=== PATIENT | female | born 1950 | race Caucasian/White ===

== ENCOUNTER 2017-01-12 09:56 | Observation (INO) ==
--- NOTE | 2017-01-12 10:12 | Emergency Department Note ---
Disposition Clinical Impression: COPD exacerbation, Influenza A Disposition: Admitted As Inpatient Condition: Good Referrals: NO,PCP [Primary Care Provider] - Forms: ED Satisfaction Letter Time of Disposition: 12:51 SOB HPI - General Chief Complaint: ED Shortness of Breath/Dyspnea Stated Complaint: shortness of breath, chest discomfort Time Seen by Provider: 01/12/17 10:02 Source: patient, EMS Mode of arrival: EMS Limitations: no limitations Nursing Notes Reviewed: Yes Vital Signs Reviewed: Yes - History of Present Illness 66-year-old white female who presents with difficulty breathing that started on Friday. She has a cough productive of small amount of sputum. She states she felt like she had a fever, it was not documented. No chills. This morning she developed some discomfort in her left chest which she describes as a tightness. No arm or neck pain. She denies rhinorrhea or sore throat. She denies leg edema. She is on home oxygen at 2 L. She has a history of COPD and atrial fibrillation. Pt Subjective Complaint: shortness of breath, cough, chest pain Onset (ago): day(s) Context: recent illness (3) Severity: moderate Consistency/Duration: constant Improves with: oxygen, rest Worsens with: exertion, coughing Known history of: COPD, other (Atrial fibrillation) Associated symptoms: Reports: chest pain (Left chest tightness), fever ( Subjective), cough, sputum production (Clear) Treatment prior to arrival: oxygen Cough present: Yes Cough Description: Involuntary Cough Frequency: Intermittent Sputum production: Yes Sputum Amount: Small Sputum Color: Clear - Related Data Home oxygen amount: 2 liters Home Medications Medication Instructions Recorded Confirmed Acetaminophen [Tylenol] 650 mg PO QID PRN 01/12/17 01/12/17 Amlodipine Besylate 10 mg PO DAILY 01/12/17 01/12/17 Dicyclomine [Bentyl] 10 mg PO QID PRN 01/12/17 01/12/17 Duloxetine HCl [Cymbalta] 60 mg PO DAILY 01/12/17 01/12/17 HydrALAZINE 50 mg PO TID 01/12/17 01/12/17 Methocarbamol [Robaxin-750] 750 mg PO TID 01/12/17 01/12/17 Naproxen Sodium [Aleve] 220 mg PO BID PRN 01/12/17 01/12/17 Pantoprazole Sodium [Protonix] 40 mg PO DAILY 01/12/17 01/12/17 Pravastatin Sodium [Pravachol] 40 mg PO HS 01/12/17 01/12/17 Pregabalin [Lyrica] 100 mg PO BID 01/12/17 01/12/17 Rivaroxaban [Xarelto] 15 mg PO DAILY 01/12/17 01/12/17 Previous Rx's Medication Instructions Recorded Aspirin 81 mg PO DAILY tab.chew 06/24/15 Carvedilol [Coreg] 25 mg PO BIDAC tablet 06/24/15 Furosemide [Lasix] 40 mg PO DAILY #30 tablet 06/24/15 Isosorbide DInitrate [Isordil] 30 mg PO BID tablet 06/24/15 Lisinopril [Zestril] 40 mg PO DAILY tablet 06/24/15 Nitroglycerin 0.4 mg SL Q5MIN PRN #15 tab.subl 06/24/15 Ranitidine HCl [Zantac] 150 mg PO BID #30 tablet 06/24/15 Saxagliptin HCl [Onglyza] 5 mg PO DAILY #30 tablet 06/24/15 Sertraline [Zoloft] 50 mg PO DAILY tablet 06/24/15 Allergies Allergy/AdvReac Type Severity Reaction Status Date / Time Penicillins [PCN] Allergy Severe See Verified 06/24/15 05:39 Comments diphenhydramine Allergy See Verified 06/24/15 05:39 Comments All systems ED: reviewed and negative except as stated. Constitutional: Reports: fever (Subjective). Denies: chills Eyes: Denies: eye discharge ENT ED: Denies: ear pain, throat pain, congestion Cardiovascular: Reports: chest pain (Left chest tightness) Respiratory: Reports: cough, dyspnea, wheezes, sputum production Gastrointestinal: Denies: abdominal pain, nausea, vomiting, diarrhea Genitourinary: Denies: urgency, dysuria, frequency Musculoskeletal: Reports: back pain (Left upper back pain) Integumentary: Denies: rash Neurological: Reports: weakness Past Medical History - Past Medical History Medical history: Reports: CVA, diabetes, myocardial infarction Surgical history: Reports: angioplasty/stent, cholecystectomy, herniorrhaphy, ureteral stent Psychiatric history: Reports: no psych history - Social History Smoking Status: Never smoker Smokeless Tobacco Status: No Alcohol use: Reports: none Drug use: Reports: none Physical Exam - General Limitations: no limitations General appearance: alert, in no apparent distress - Head Head exam: atraumatic, normocephalic - Eye Eye exam: Present: PERRL, EOMI. Absent: scleral icterus, conjunctival injection - ENT ENT exam: normal oropharynx, mucous membranes moist, TM's normal bilaterally - Neck Neck exam: Present: normal inspection, full ROM, trachea midline. Absent: lymphadenopathy - Chest Chest inspection: Present: symmetric chest wall rise - Respiratory Respiratory exam: Present: wheezes (Bilateral, mild, expiratory.), other ( Decreased breath sounds in the left base and midlung field posteriorly). Absent : respiratory distress, prolonged expiratory phase - Cardiovascular Cardiovascular exam: Present: regular rate, irregular rhythm. Absent: systolic murmur, diastolic murmur, gallop - Abdominal Exam Abdominal exam: Present: soft, Non-Tender, other (Obese) - Extremities Exam Extremities exam: Present: normal capillary refill. Absent: tenderness, pedal edema, calf tenderness - Neurological Exam Neurological exam: Present: alert, oriented X3. Absent: motor sensory deficit - Psychiatric Psychiatric exam: Present: normal affect, normal mood - Skin Skin exam: Present: warm, dry, intact. Absent: cyanosis, diaphoresis Course - Reevaluation(s) Reevaluation #1: Breathing is improved with treatment. Blood pressures have been in the high 80s to low 100 systolic. There is no evidence of congestive heart failure. I am going to give her a fluid bolus. Her lactic acid is normal. There is no evidence of sepsis. She is not tachycardic and her lactic acid is normal. No evidence of pneumonia on her x-ray. I think this patient has a COPD exacerbation with influenza A. I will talk with the hospitalist about admitting her for further treatment of her bronchospasm. Time: 12:17 Vital Signs Pulse Rate 96 01/12/17 10:02 Respiratory Rate 20 01/12/17 10:02 Blood Pressure 98/61 01/12/17 10:02 O2 Sat by Pulse Oximetry 94 L 01/12/17 10:02 Temperature 101 F H 01/12/17 10:03 Pulse Rate 89 01/12/17 11:32 Respiratory Rate 21 01/12/17 11:32 Blood Pressure 105/61 01/12/17 11:32 O2 Sat by Pulse Oximetry 95 01/12/17 11:32 Oxygen Delivery Oxygen Delivery Nasal Cannula Shortness of Breath/Dyspnea - MDM Narrative Medical decision making narrative: Differential includes but is not limited to influenza, pneumonia, pleural effusion, pneumothorax, congestive heart failure, cardiac ischemia/myocardial infarction. Clinically the patient has a COPD exacerbation with influenza A. There is no evidence of pneumonia. There is no evidence of congestive heart failure. She has been treated with nebulizers and steroids. She will be dosed with Tamiflu in the emergency department. She will require hospitalization, observation admission. The patient is agreeable with this treatment plan. She did get a fluid bolus for a blood pressure of 86 in the emergency department. Her lactic acid is normal, she is not tachycardic, I do not think she is septic. I am going to hold some of her antihypertensive medications as an inpatient. - Lab Data Lab results reviewed: Yes I reviewed the patient's lab results. Result diagrams: 01/12/17 10:25 01/12/17 10:25 Lab Results 01/12/17 01/12/17 01/12/17 Range/Units 10:25 10:25 10:25 WBC 7.1 (4.3-11.1) K/mcL RBC 4.00 (3.82-4.97) M/mcL Hgb 11.8 (11.5-15.4) g/dL Hct 35.5 (35.3-44.9) % MCV 88.8 (83.0-100.0) fL MCH 29.5 (28.0-33.3) pg MCHC 33.2 (31.6-35.5) g/dL RDW 13.6 (11.5-14.5) % Plt Count 171 (140-400) K/mcL MPV 12.0 (9.4-12.4) fL Immature Gran % 0.4 (0-4) % Seg Neutrophils % 81.3 % Lymphocytes % 5.8 % Monocytes % 10.6 % Eosinophils % 1.6 % Basophils % 0.3 % Neutrophils # 5.8 (1.6-8.9) K/mcL Lymphocytes # 0.4 L (0.6-4.6) K/mcL Monocytes # 0.8 (0.0-1.3) K/mcL Eosinophils # 0.1 (0.0-0.6) K/mcL Basophils # 0.0 (0.0-0.2) K/mcL PT 23.1 H (9.4-12.1) Seconds INR 2.1 VBG Lactic Acid (0.5-2.2) mmol/L Sodium 141 (136-145) mEq/L Potassium 3.5 (3.5-4.5) mEq/L Chloride 102 (98-109) mEq/L Carbon Dioxide 26 (19-29) mEq/L BUN 12 (7-20) mg/dL Creatinine 1.17 H (0.57-1.11) mg/dL Est GFR ( Amer) 56 L (> 60) Est GFR (Non-Af Amer) 46 L (> 60) BUN/Creatinine Ratio 10 (6-26) Glucose 120 H (70-99) mg/dL Calculated Osmolality 293 (280-300) Calcium 8.7 (8.6-10.8) mg/dL Total Bilirubin 0.6 (0.2-1.2) mg/dL AST 19 (5-34) Units/L ALT 11 (0-55) Units/L Alkaline Phosphatase 97 (38-126) Units/L Troponin I (0-0.03) ng/mL B-Natriuretic Peptide (0-100) pg/mL Serum Total Protein 7.1 (6.0-8.3) g/dL Albumin 3.1 L (3.5-5.0) g/dL Globulin 4.0 H (2.4-3.5) g/dL Albumin/Globulin Ratio 0.8 L (1.1-2.2) 01/12/17 01/12/17 01/12/17 Range/Units 10:25 10:25 10:25 WBC (4.3-11.1) K/mcL RBC (3.82-4.97) M/mcL Hgb (11.5-15.4) g/dL Hct (35.3-44.9) % MCV (83.0-100.0) fL MCH (28.0-33.3) pg MCHC (31.6-35.5) g/dL RDW (11.5-14.5) % Plt Count (140-400) K/mcL MPV (9.4-12.4) fL Immature Gran % (0-4) % Seg Neutrophils % % Lymphocytes % % Monocytes % % Eosinophils % % Basophils % % Neutrophils # (1.6-8.9) K/mcL Lymphocytes # (0.6-4.6) K/mcL Monocytes # (0.0-1.3) K/mcL Eosinophils # (0.0-0.6) K/mcL Basophils # (0.0-0.2) K/mcL PT (9.4-12.1) Seconds INR VBG Lactic Acid 1.0 (0.5-2.2) mmol/L Sodium (136-145) mEq/L Potassium (3.5-4.5) mEq/L Chloride (98-109) mEq/L Carbon Dioxide (19-29) mEq/L BUN (7-20) mg/dL Creatinine (0.57-1.11) mg/dL Est GFR ( Amer) (> 60) Est GFR (Non-Af Amer) (> 60) BUN/Creatinine Ratio (6-26) Glucose (70-99) mg/dL Calculated Osmolality (280-300) Calcium (8.6-10.8) mg/dL Total Bilirubin (0.2-1.2) mg/dL AST (5-34) Units/L ALT (0-55) Units/L Alkaline Phosphatase (38-126) Units/L Troponin I 0.01 (0-0.03) ng/mL B-Natriuretic Peptide 187 H (0-100) pg/mL Serum Total Protein (6.0-8.3) g/dL Albumin (3.5-5.0) g/dL Globulin (2.4-3.5) g/dL Albumin/Globulin Ratio (1.1-2.2) - Radiology Data Radiology results reviewed: Yes I reviewed the patient's radiology results. ITS Impressions Chest X-Ray 01/12/17 10:10 IMPRESSION: Interstitial changes may be chronic. Correlate clinical evidence of vascular congestion. D/ / 01/12/2017 11:43:13 Samson Donovan MD / madhu Interpreting Provider: Samson Donovan MD - EKG Data EKG attestation: Yes I reviewed and interpreted this EKG. EKG results narrative: Atrial fibrillation, rate of 99, poor R-wave progression, age undetermined anterior infarct, nonspecific ST-T wave changes. Rhythm strip shows atrial fibrillation with a rate of 99, QRS 106 ms with no other ectopy as interpreted by me. I can find no old EKGs in the system for comparison, although she had a nuclear stress test on 04/23/16 which reports a history of atrial fibrillation, and reports that she was in atrial fibrillation during the stress test.
[2017-01-12] MEDS ORDERED: Albuterol 2.5 MG/3 ML NEBULIZER IH ONE (10:13)
[2017-01-12] MEDS ORDERED: Ipratropium/Albuterol Neb 3 ML ONE (10:34)
[2017-01-12] MEDS: Ipratropium/Albuterol Neb 3 ML IH ONE ×3 (10:36→16:53)
[2017-01-12 10:59] LABS: Basophils % 0.3 %; Eosinophils # 0.1 K/mcL (0.0-0.6); Eosinophils % 1.6 %; Hematocrit 35.5 % (35.3-44.9); Hemoglobin 11.8 g/dL (11.5-15.4); Immature Granulocytes % 0.4 % (0-4); Lymphocytes # 0.4 K/mcL (0.6-4.6); Lymphocytes % 5.8 %; Mean Corpuscular HGB Conc 33.2 g/dL (31.6-35.5); Mean Corpuscular Hemoglobin 29.5 pg (28.0-33.3); Mean Corpuscular Volume 88.8 fL (83.0-100.0); Monocytes # 0.8 K/mcL (0.0-1.3); Monocytes % 10.6 %; Neutrophils # 5.8 K/mcL (1.6-8.9); Platelet Count 171 K/mcL (140-400); Red Cell Distribution Width 13.6 % (11.5-14.5); Segmented Neutrophils % 81.3 %
[2017-01-12 11:01] LABS: INR 2.1; Prothrombin Time 23.1 Seconds (9.4-12.1)
[2017-01-12 11:13] LABS: Albumin 3.1 g/dL (3.5-5.0); Albumin/Globulin Ratio 0.8 (1.1-2.2); Bilirubin,Total 0.6 mg/dL (0.2-1.2); Calcium 8.7 mg/dL (8.6-10.8); Potassium 3.5 mEq/L (3.5-4.5); Total Protein 7.1 g/dL (6.0-8.3)
[2017-01-12] MEDS ORDERED: 0.9 % Sodium Chloride 500 ML IVC ONE (12:16)
[2017-01-12] MEDS ORDERED: Ipratropium/Albuterol Neb 3 ML IH ONE ×2 (12:59→13:14)
[2017-01-12] MEDS ORDERED: Nitroglycerin 0.4 MG TAB.SUBL SL PRN (13:14)
[2017-01-12] MEDS ORDERED: Acetaminophen 325 MG TABLET PO PRN (13:14)
[2017-01-12] MEDS ORDERED: Naloxone 0.4 MG/ML INJ IVP PRN (13:14)
[2017-01-12] MEDS: Methocarbamol 500 MG TABLET PO SCH ×2 (18:13→22:23)
[2017-01-12] MEDS: MethylPREDNISolone 40 MG/ML VIAL IVP SCH ×2 (18:14→22:23)
[2017-01-12] MEDS: Famotidine 20 MG TABLET PO SCH (22:23)
[2017-01-12] MEDS: Pregabalin 50 MG CAPSULE PO SCH (22:23)
[2017-01-12] MEDS ORDERED: Ondansetron 4 MG/2 ML VIAL IVP PRN (23:04)
[2017-01-13] MEDS ORDERED: *HR* Rivaroxaban 15 MG TABLET PO SCH ×2 (09:00→18:00)
[2017-01-13] MEDS ORDERED: Furosemide 40 MG TABLET PO SCH (09:00)
[2017-01-13] MEDS ORDERED: Lisinopril 20 MG TABLET PO SCH (09:00)
[2017-01-13] MEDS: MethylPREDNISolone 40 MG/ML VIAL IVP SCH (10:21)
[2017-01-13] MEDS: Famotidine 20 MG TABLET PO SCH ×2 (10:22→20:59)
[2017-01-13] MEDS: Aspirin 81 MG TAB.CHEW PO SCH (10:22)
[2017-01-13] MEDS: Pregabalin 50 MG CAPSULE PO SCH ×2 (10:22→20:59)
[2017-01-13] MEDS: Methocarbamol 500 MG TABLET PO SCH ×3 (10:23→20:58)
[2017-01-13] MEDS: (Saxagliptin Hcl [Onglyza] 5 MG) PO SCH (10:24)
--- NOTE | 2017-01-13 12:14 | Internal Med History&Physical ---
Date of Encounter: 01/13/17 Time of Encounter: 11:35 Assessment and Plan (1) Influenza A Current visit: Yes Status: Acute Continue Tamiflu started in the emergency room. (2) Chronic atrial fibrillation Current visit: No Status: Chronic Continue Xarelto (3) Hypertension Current visit: No Status: Chronic Will discontinue lisinopril because of borderline hypotension and azotemia. Continue hydralazine and carvedilol. Qualifiers: Hypertension type: essential hypertension Qualified Code(s): I10 - Essential (primary) hypertension Internal Medicine - H&P: HPI Chief complaint: Dyspnea Admitted From: Home Plans for Post Hospital Care: Home History of present illness: Ms. Hernandez is a 66 year old female who came to the emergency room stating she had onset of dyspnea January 10. She had minimally productive cough. She denies significant myalgias or arthralgias. She had several episodes of diarrhea but no vomiting. When she did not improve she came to emergency was evaluated and found to have influenza A. She was admitted to [facility] floor for ongoing care needs. She states she received a flu vaccine fall 2015. Her respiratory history is significant for being a lifelong nonsmoker. She has history of asthma and uses an MDI at home. Past Med Surg Social Fam HX - Past Medical History Medical history: CVA, diabetes, myocardial infarction Psychiatric history: no psych history - Past Surgical History Surgical History: angioplasty/stent, cholecystectomy, herniorrhaphy, ureteral stent - Social History Smoking Status: Never smoker Smokeless Tobacco Status: No Alcohol use: none Drug use: none Internal Medicine - H&P: Meds Aspirin 81 mg PO DAILY tab.chew 06/24/15 [Rx] Carvedilol [Coreg] 25 mg PO BIDAC tablet 06/24/15 [Rx] Furosemide [Lasix] 40 mg PO DAILY #30 tablet 06/24/15 [Rx] Isosorbide DInitrate [Isordil] 30 mg PO BID tablet 06/24/15 [Rx] Lisinopril [Zestril] 40 mg PO DAILY tablet 06/24/15 [Rx] Nitroglycerin 0.4 mg SL Q5MIN PRN #15 tab.subl 06/24/15 [Rx] Ranitidine HCl [Zantac] 150 mg PO BID #30 tablet 06/24/15 [Rx] Saxagliptin HCl [Onglyza] 5 mg PO DAILY #30 tablet 06/24/15 [Rx] Sertraline [Zoloft] 50 mg PO DAILY tablet 06/24/15 [Rx] Acetaminophen [Tylenol] 650 mg PO QID PRN 01/12/17 [History] Amlodipine Besylate 10 mg PO DAILY 01/12/17 [History] Dicyclomine [Bentyl] 10 mg PO QID PRN 01/12/17 [History] Duloxetine HCl [Cymbalta] 60 mg PO DAILY 01/12/17 [History] HydrALAZINE 50 mg PO TID 01/12/17 [History] Methocarbamol [Robaxin-750] 750 mg PO TID 01/12/17 [History] Naproxen Sodium [Aleve] 220 mg PO BID PRN 01/12/17 [History] Pantoprazole Sodium [Protonix] 40 mg PO DAILY 01/12/17 [History] Pravastatin Sodium [Pravachol] 40 mg PO HS 01/12/17 [History] Pregabalin [Lyrica] 100 mg PO BID 01/12/17 [History] Rivaroxaban [Xarelto] 15 mg PO DAILY 01/12/17 [History] Allergies Penicillins [PCN] Allergy (Severe, Verified 06/24/15 05:39) See Comments reaction documented in 566 diphenhydramine Allergy (Verified 06/24/15 05:39) See Comments reaction documented in 566 All Systems PM: A 10-system review of systems was performed and is negative for pertinent findings except as documented above in the HPI. Review of systems: Gen.: States her weight has decreased by 20 pounds in the past year, intentionally Cardiovascular: She has history of hypertension. She has chronic atrial fibrillation. She claims a history of heart failure but an echocardiogram done 06/24/2015 showed LVEF of 60-65%. There was indeterminate diastolic function due to atrial fibrillation. No significant valvular abnormalities were seen. She had LAE at 4.2 cm. She had a Regadenoson stress test 04/23/2016 which showed no EKG or perfusion changes to indicate ischemia or infarct. She denies DVT or pulmonary embolus Respiratory: As per history of present illness GI: She has had cholecystectomy. She has GERD and IBS. She claims a colonoscopy done 2 weeks ago was unremarkable. She denies disorders of her liver or exocrine pancreas : She has chronic kidney disease but has not yet seen a intern retail. She denies other kidney or bladder disorders Neurologic: She claims she has had 5 strokes with the most recent one in 2009. Sequelae include a swallowing deficit and left hemiparesthesias. She uses a walker for ambulation. She denies seizures. Endocrine: She was diagnosed with DM 2 approximately 2 years ago. Her most recent hemoglobin A1c was 6.0% on 11/22/2016. She is on a statin but denies a diagnosis of hyperlipidemia. She denies thyroid disease. Hematology/oncology: She denies blood disorders cancers or anemia Psychiatric: She is a diagnosis of depression but denies anxiety or other mental health issues Musk skeletal: She has DJD but denies gout or other bone joint or muscle disorders. - Constitutional Vitals: Temp Pulse Resp BP Pulse Ox 97.7 F 77 18 120/71 97 01/13/17 07:13 01/13/17 07:13 01/13/17 07:13 01/13/17 07:13 01/13/17 07:13 Exam: Gen.: She is a well-developed well-nourished female who appears in minimal distress at present time. HEENT: Head is atraumatic and normocephalic. Eyes: EOMI. There is no scleral icterus. Mouth: Mucosa is moist. Neck: She has many skin tags on her neck and upper torso. Her neck is supple and nontender. There is no thyromegaly or adenopathy noted. Heart: Irregularly irregular with rate approximately 90/m. Lungs: No wheezes or crackles are heard. Abdomen: Soft and nontender. No masses or guarding are noted. Extremities: There is no cyanosis edema clubbing noted. Dorsalis pedis and posterior tibial pulses are trace palpable bilaterally. Her feet are warm to touch. Neurologic: Mental status: She is talkative and seems to be a reliable historian overall. Cranial nerves: Smile is symmetric. Forehead wrinkles bilaterally. Tongue protrudes midline. EOMI. Motor: She has difficulty raising her left arm. Right arm moves normally. Cerebellar: Finger to nose is intact with the right hand. She has difficulty doing the maneuver with the left hand. Skin: Warm and dry Internal Med - H&P Results - Labs CBC & Chem 7: 01/12/17 10:25 01/12/17 10:25
[2017-01-13] MEDS: D5% in 0.45% NACL w KCl 20 MEQ/1,000 ML MLS IVC SCH (14:03)
[2017-01-14] MEDS: D5% in 0.45% NACL w KCl 20 MEQ/1,000 ML MLS IVC SCH ×2 (00:03→10:11)
[2017-01-14 06:03] LABS: Basophils % 0.1 %; Hematocrit 34.7 % (35.3-44.9); Hemoglobin 11.3 g/dL (11.5-15.4); Immature Granulocytes % 0.5 % (0-4); Lymphocytes # 0.8 K/mcL (0.6-4.6); Lymphocytes % 6.4 %; Mean Corpuscular HGB Conc 32.6 g/dL (31.6-35.5); Mean Corpuscular Hemoglobin 28.6 pg (28.0-33.3); Mean Corpuscular Volume 87.8 fL (83.0-100.0); Mean Platelet Volume 11.6 fL (9.4-12.4); Monocytes # 0.6 K/mcL (0.0-1.3); Monocytes % 4.4 %; Neutrophils # 11.6 K/mcL (1.6-8.9); Platelet Count 169 K/mcL (140-400); Red Blood Count 3.95 M/mcL (3.82-4.97); Red Cell Distribution Width 13.3 % (11.5-14.5); Segmented Neutrophils % 88.6 %
[2017-01-14 06:23] LABS: Calcium 8.3 mg/dL (8.6-10.8); Potassium 4.1 mEq/L (3.5-4.5)
[2017-01-14 07:10] VITALS: BP 118/66
[2017-01-14] MEDS: Methocarbamol 500 MG TABLET PO SCH (08:16)
[2017-01-14] MEDS: Famotidine 20 MG TABLET PO SCH (08:17)
[2017-01-14] MEDS: (Saxagliptin Hcl [Onglyza] 5 MG) PO SCH (08:17)
[2017-01-14] MEDS: Pregabalin 50 MG CAPSULE PO SCH (08:17)
[2017-01-14] MEDS: Aspirin 81 MG TAB.CHEW PO SCH (08:17)
--- NOTE | 2017-01-14 10:16 | Discharge Summary ---
Date of Encounter: 01/14/17 Time of Encounter: 10:05 - Discharge Diagnosis (1) Influenza A Priority: Primary Status: Acute (2) Chronic atrial fibrillation Priority: Secondary Status: Chronic (3) Hypertension Priority: Secondary Status: Chronic Qualifiers: Hypertension type: essential hypertension Qualified Code(s): I10 - Essential (primary) hypertension - Discharge Medications Prescriptions: Oseltamivir [Tamiflu] 75 mg PO BID #8 capsule Home Medications: Aspirin 81 mg PO DAILY tab.chew 06/24/15 [Rx] Carvedilol [Coreg] 25 mg PO BIDAC tablet 06/24/15 [Rx] Furosemide [Lasix] 40 mg PO DAILY #30 tablet 06/24/15 [Rx] Isosorbide DInitrate [Isordil] 30 mg PO BID tablet 06/24/15 [Rx] Nitroglycerin 0.4 mg SL Q5MIN PRN #15 tab.subl 06/24/15 [Rx] Ranitidine HCl [Zantac] 150 mg PO BID #30 tablet 06/24/15 [Rx] Saxagliptin HCl [Onglyza] 5 mg PO DAILY #30 tablet 06/24/15 [Rx] Sertraline [Zoloft] 50 mg PO DAILY tablet 06/24/15 [Rx] Acetaminophen [Tylenol] 650 mg PO QID PRN 01/12/17 [History] Amlodipine Besylate 10 mg PO DAILY 01/12/17 [History] Dicyclomine [Bentyl] 10 mg PO QID PRN 01/12/17 [History] Duloxetine HCl [Cymbalta] 60 mg PO DAILY 01/12/17 [History] HydrALAZINE 50 mg PO TID 01/12/17 [History] Methocarbamol [Robaxin-750] 750 mg PO TID 01/12/17 [History] Naproxen Sodium [Aleve] 220 mg PO BID PRN 01/12/17 [History] Pantoprazole Sodium [Protonix] 40 mg PO DAILY 01/12/17 [History] Pravastatin Sodium [Pravachol] 40 mg PO HS 01/12/17 [History] Pregabalin [Lyrica] 100 mg PO BID 01/12/17 [History] Rivaroxaban [Xarelto] 15 mg PO DAILY 01/12/17 [History] Oseltamivir [Tamiflu] 75 mg PO BID #8 capsule 01/14/17 [Rx] Allergies/Adverse Reactions: Allergies Penicillins [PCN] Allergy (Severe, Verified 06/24/15 05:39) See Comments reaction documented in 566 diphenhydramine Allergy (Verified 06/24/15 05:39) See Comments reaction documented in 566 Date of admission: 01/12/17 13:09 Primary care physician: Marissa Madden CNP - Patient Status Disposition: Home, Self-Care Condition: Good Overall status at discharge: patient is progressing back to baseline - Discharge Instructions Follow Up With: Marissa Madden CNP [Advanced Practice Nurse] - 1 week - Diet and Activity Activity: resume usual activities as tolerated Diet: advance to your usual diet Hospital course: Ms. Hernandez is a 66 year old female who came to the emergency room stating she had onset of dyspnea January 10. She had minimally productive cough. She denies significant myalgias or arthralgias. She had several episodes of diarrhea but no vomiting. When she did not improve she came to emergency was evaluated and found to have influenza A. She was admitted to [facility] for ongoing care needs. Initial orders were written by the emergency room physician. I saw her on January 13 and performed history and physical. She was started on Tamiflu. Her temperature returned to normal range. She had no new complications and felt improved when I saw her on January 14. She wished to be discharged to which I felt was reasonable. She will follow with Marissa Madden CNP within 1 week. She had borderline hypotension on admission and lisinopril was held. She will remain off this until follow-up with her PCP. I told her the azotemia might improve off lisinopril. I will let her PCP follow-up on this. Her azotemia was essentially unchanged on January 14 with creatinine 1.20 and estimated GFR 45. Her TSH was slightly suppressed at 0.247. I will let her PCP follow-up on this. Room air oximetry will be checked prior to discharge. - Time Spent with Patient Total time spent providing and/or coordinating discharge services: - Constitutional Vitals: Temp Pulse Resp BP Pulse Ox 97.8 F 76 16 118/66 92 L 01/14/17 07:05 01/14/17 07:05 01/14/17 07:05 01/14/17 07:05 01/14/17 07:05
--- NOTE | 2017-01-14 17:38 | Electrocardiograph Report ---
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
== END 2017-01-14 12:02 | disposition home or self-care (01) ==
LOC: INPPIK 09:56 → EMEROOPIK 09:56 → INPPIK 13:28
PROVIDERS: ADMIT Internal Medicine; ATTEND Internal Medicine

== ENCOUNTER 2017-01-24 11:58 | Inpatient (IN) ==
[2017-01-24] MEDS ORDERED: 0.9 % Sodium Chloride 1,000 ML IVC ONE (12:43)
[2017-01-24] MEDS ORDERED: Levofloxacin 500 MG/100 ML 500 MG/100 ML BAG IVPB ONE (12:43)
[2017-01-24] MEDS ORDERED: Ipratropium/Albuterol Neb 3 ML IH ONE (12:43)
--- NOTE | 2017-01-24 12:44 | Emergency Department Note ---
Disposition Clinical Impression: Acute exacerbation of chronic obstructive airways disease Disposition: Admitted As Inpatient Condition: Fair Referrals: Marissa Madden CNP [Primary Care Provider] - Forms: ED Satisfaction Letter Time of Disposition: 14:15 SOB HPI - General Chief Complaint: ED Shortness of Breath/Dyspnea Stated Complaint: dell, prod cough, ongoing x 3 weeks Time Seen by Provider: 01/24/17 12:12 Source: patient Mode of arrival: ambulatory Limitations: no limitations Nursing Notes Reviewed: Yes Vital Signs Reviewed: Yes - History of Present Illness Patient was admitted couple weeks ago had bronchitis pneumonia states she has really never got summary suggesting she is having increasing shortness of breath she has diarrhea melena hematochezia or hematemesis states that her caregiver says I know you got pneumonia he need to go the hospital she states that she does not feel well she denies any diarrhea she states that she is having cough and congestion some phlegm production is weak and tired Pt Subjective Complaint: shortness of breath, cough, pain with inspiration Onset (ago): week(s) (1) Context: recent illness Severity: moderate Consistency/Duration: intermittent Improves with: bronchodilators Worsens with: exertion Known history of: COPD Associated symptoms: Reports: cough, wheezing, sputum production. Denies: chest pain, pain with inspiration, fever, orthopnea, lower extremity pain, polyuria, polydipsia, parasthesias, palpitations, hemoptysis, diaphoresis, nausea/vomiting, syncope, abdominal pain, rash, sense of impending doom Treatment prior to arrival: bronchodilator Cough present: Yes Cough Description: Involuntary, Productive, Weak Cough Frequency: Intermittent Sputum production: Yes Sputum Amount: Small Sputum Color: Yellow, Green - Related Data Home Medications Medication Instructions Recorded Confirmed Acetaminophen [Tylenol] 650 mg PO QID PRN 01/12/17 01/24/17 Amlodipine Besylate 10 mg PO DAILY 01/12/17 01/24/17 Dicyclomine [Bentyl] 10 mg PO QID PRN 01/12/17 01/24/17 Duloxetine HCl [Cymbalta] 60 mg PO DAILY 01/12/17 01/24/17 HydrALAZINE 50 mg PO TID 01/12/17 01/24/17 Methocarbamol [Robaxin-750] 750 mg PO TID 01/12/17 01/24/17 Naproxen Sodium [Aleve] 220 mg PO BID PRN 01/12/17 01/24/17 Pantoprazole Sodium [Protonix] 40 mg PO DAILY 01/12/17 01/24/17 Pravastatin Sodium [Pravachol] 40 mg PO HS 01/12/17 01/24/17 Pregabalin [Lyrica] 100 mg PO BID 01/12/17 01/24/17 Rivaroxaban [Xarelto] 15 mg PO DAILY 01/12/17 01/24/17 Previous Rx's Medication Instructions Recorded Aspirin 81 mg PO DAILY tab.chew 06/24/15 Carvedilol [Coreg] 25 mg PO BIDAC tablet 06/24/15 Furosemide [Lasix] 40 mg PO DAILY #30 tablet 06/24/15 Isosorbide DInitrate [Isordil] 30 mg PO BID tablet 06/24/15 Nitroglycerin 0.4 mg SL Q5MIN PRN #15 tab.subl 06/24/15 Ranitidine HCl [Zantac] 150 mg PO BID #30 tablet 06/24/15 Saxagliptin HCl [Onglyza] 5 mg PO DAILY #30 tablet 06/24/15 Sertraline [Zoloft] 50 mg PO DAILY tablet 06/24/15 Allergies Allergy/AdvReac Type Severity Reaction Status Date / Time Penicillins [PCN] Allergy Severe See Verified 01/24/17 12:00 Comments diphenhydramine Allergy See Verified 01/24/17 12:00 Comments All systems ED: reviewed and negative except as stated. Constitutional: Reports: weakness Eyes: Denies: eye pain, eye discharge ENT ED: Reports: congestion. Denies: ear pain, throat pain Cardiovascular: Denies: chest pain, palpitations Respiratory: Reports: cough, dyspnea, wheezes, sputum production Gastrointestinal: Denies: abdominal pain, nausea, vomiting Genitourinary: Denies: urgency, dysuria, frequency Musculoskeletal: Denies: back pain, neck pain Integumentary: Denies: rash, abrasion, lesions Neurological: Denies: headache, weakness Psychiatric: Denies: anxiety Endocrine: Denies: fatigue Hematological/Lymphatic: Denies: easy bleeding Allergic/Immunologic: Denies: facial swelling Past Medical History - Past Medical History Attestation: Yes The following information was validated with the patient. Source: patient, old records reviewed, nursing notes reviewed Medical history: Reports: asthma, CHF, COPD, CVA, diabetes, hyperlipidemia, hypertension, kidney stones Surgical history: Reports: angioplasty/stent, cholecystectomy, herniorrhaphy, ureteral stent Psychiatric history: Reports: no psych history - Social History Smoking Status: Never smoker Smokeless Tobacco Status: No Alcohol use: Reports: none Drug use: Reports: none Physical Exam - General Limitations: no limitations General appearance: alert, in no apparent distress, obese - Head Head exam: atraumatic, normocephalic, normal inspection - Eye Eye exam: Present: normal appearance, PERRL, EOMI - ENT ENT exam: normal exam, normal oropharynx, mucous membranes moist, TM's normal bilaterally, normal external ear exam, other (PND) - Neck Neck exam: Present: normal inspection, full ROM, trachea midline - Chest Chest inspection: Present: normal inspection, symmetric chest wall rise - Respiratory Respiratory exam: Present: normal lung sounds bilaterally - Cardiovascular Cardiovascular exam: Present: regular rate, normal rhythm, normal heart sounds - Abdominal Exam Abdominal exam: Present: soft, Non-Tender, normal bowel sounds. Absent: tenderness, distention, guarding, rebound, rigidity - Expanded Upper Extremity Exam Shoulder exam: Present: normal inspection, full ROM Arm exam: Present: normal inspection, full ROM Elbow exam: Present: normal inspection, full ROM Forearm/Wrist exam: Present: normal inspection, full ROM Hand exam: Present: normal inspection, full ROM Vascular exam: Normal: capillary refill, radial pulse - Expanded Lower Extremity Exam Hip/Pelvis exam: Present: normal inspection, full ROM Upper leg exam: Present: normal inspection, full ROM Knee exam: Present: normal inspection, full ROM Lower leg exam: Present: normal inspection, full ROM Ankle exam: Present: normal inspection, full ROM Foot/toe exam: Present: normal inspection, full ROM Neurovascular/Tendon exam: Present: normal capillary refill, normal fine/light touch. Absent: motor deficit, sensory deficit, tendon deficit Gait: observed and normal - Back Exam Back exam: Present: normal inspection, full ROM - Neurological Exam Neurological exam: Present: alert, oriented X3, CN II-XII intact - Psychiatric Psychiatric exam: Present: normal affect, normal mood - Skin Skin exam: Present: warm, dry, intact, normal color Course Course Narrative: Patient seen and examined laboratory data ordered DuoNeb given patient resting comfortably Vital Signs Pulse Rate 87 01/24/17 12:02 Respiratory Rate 20 01/24/17 12:02 Blood Pressure 118/59 01/24/17 12:02 O2 Sat by Pulse Oximetry 94 L 01/24/17 12:02 Temperature 99.3 F 01/24/17 12:03 Pulse Rate 85 01/24/17 14:07 Respiratory Rate 19 01/24/17 14:07 Blood Pressure 144/71 01/24/17 14:07 O2 Sat by Pulse Oximetry 95 01/24/17 14:07 Oxygen Delivery Oxygen Delivery Nasal Cannula Shortness of Breath/Dyspnea - Differential Diagnosis Likely: acute exacerbation of chronic obstructive airways disease, pneumonia - Medical Records Medical records reviewed: Yes I reviewed the patient's medical records. - Lab Data Lab results reviewed: Yes I reviewed the patient's lab results. Result diagrams: 01/24/17 13:03 01/24/17 13:03 Lab Results 01/24/17 01/24/17 01/24/17 Range/Units 13:03 13:03 13:03 WBC 12.4 H (4.3-11.1) K/mcL RBC 4.50 (3.82-4.97) M/mcL Hgb 12.8 (11.5-15.4) g/dL Hct 38.5 (35.3-44.9) % MCV 85.6 (83.0-100.0) fL MCH 28.4 (28.0-33.3) pg MCHC 33.2 (31.6-35.5) g/dL RDW 13.2 (11.5-14.5) % Plt Count 296 (140-400) K/mcL MPV 10.7 (9.4-12.4) fL Immature Gran % 0.4 (0-4) % Seg Neutrophils % 84.1 % Lymphocytes % 10.7 % Monocytes % 3.2 % Eosinophils % 1.4 % Basophils % 0.2 % Neutrophils # 10.4 H (1.6-8.9) K/mcL Lymphocytes # 1.3 (0.6-4.6) K/mcL Monocytes # 0.4 (0.0-1.3) K/mcL Eosinophils # 0.2 (0.0-0.6) K/mcL Basophils # 0.0 (0.0-0.2) K/mcL PT 21.9 H (9.4-12.1) Seconds INR 2.0 APTT 36.5 H (26.0-36.0) Seconds Sodium (136-145) mEq/L Potassium (3.5-4.5) mEq/L Chloride (98-109) mEq/L Carbon Dioxide (19-29) mEq/L BUN (7-20) mg/dL Creatinine (0.57-1.11) mg/dL Est GFR ( Amer) (> 60) Est GFR (Non-Af Amer) (> 60) BUN/Creatinine Ratio (6-26) Glucose (70-99) mg/dL Calculated Osmolality (280-300) Calcium (8.6-10.8) mg/dL B-Natriuretic Peptide (0-100) pg/mL 01/24/17 01/24/17 Range/Units 13:03 13:03 WBC (4.3-11.1) K/mcL RBC (3.82-4.97) M/mcL Hgb (11.5-15.4) g/dL Hct (35.3-44.9) % MCV (83.0-100.0) fL MCH (28.0-33.3) pg MCHC (31.6-35.5) g/dL RDW (11.5-14.5) % Plt Count (140-400) K/mcL MPV (9.4-12.4) fL Immature Gran % (0-4) % Seg Neutrophils % % Lymphocytes % % Monocytes % % Eosinophils % % Basophils % % Neutrophils # (1.6-8.9) K/mcL Lymphocytes # (0.6-4.6) K/mcL Monocytes # (0.0-1.3) K/mcL Eosinophils # (0.0-0.6) K/mcL Basophils # (0.0-0.2) K/mcL PT (9.4-12.1) Seconds INR APTT (26.0-36.0) Seconds Sodium 139 (136-145) mEq/L Potassium 3.5 (3.5-4.5) mEq/L Chloride 98 (98-109) mEq/L Carbon Dioxide 29 (19-29) mEq/L BUN 12 (7-20) mg/dL Creatinine 1.11 (0.57-1.11) mg/dL Est GFR ( Amer) 59 L (> 60) Est GFR (Non-Af Amer) 49 L (> 60) BUN/Creatinine Ratio 11 (6-26) Glucose 159 H (70-99) mg/dL Calculated Osmolality 291 (280-300) Calcium 9.3 (8.6-10.8) mg/dL B-Natriuretic Peptide 177 H (0-100) pg/mL - Radiology Data Radiology results reviewed: Yes I reviewed the patient's radiology results. ITS Impressions Chest X-Ray 01/24/17 12:41 IMPRESSION: Stable cardiomegaly and pulmonary venous hypertension with no acute abnormality. D/ / 01/24/2017 13:25:58 Nathan Stein MD / madhu Interpreting Provider: Nathan Stein MD - EKG Data EKG attestation: Yes I reviewed and interpreted this EKG. EKG results narrative: Atrial fib rate 79 QRS 98 QT 399 axis -28 Critical Care Time Critical Care Time: No
[2017-01-24 13:13] LABS: Basophils % 0.2 %; Eosinophils # 0.2 K/mcL (0.0-0.6); Eosinophils % 1.4 %; Hematocrit 38.5 % (35.3-44.9); Hemoglobin 12.8 g/dL (11.5-15.4); Immature Granulocytes % 0.4 % (0-4); Lymphocytes # 1.3 K/mcL (0.6-4.6); Lymphocytes % 10.7 %; Mean Corpuscular HGB Conc 33.2 g/dL (31.6-35.5); Mean Corpuscular Hemoglobin 28.4 pg (28.0-33.3); Mean Corpuscular Volume 85.6 fL (83.0-100.0); Mean Platelet Volume 10.7 fL (9.4-12.4); Monocytes # 0.4 K/mcL (0.0-1.3); Monocytes % 3.2 %; Neutrophils # 10.4 K/mcL (1.6-8.9); Platelet Count 296 K/mcL (140-400); Red Cell Distribution Width 13.2 % (11.5-14.5); Segmented Neutrophils % 84.1 %
[2017-01-24 13:18] LABS: Prothrombin Time 21.9 Seconds (9.4-12.1)
[2017-01-24 13:27] LABS: Calcium 9.3 mg/dL (8.6-10.8); Potassium 3.5 mEq/L (3.5-4.5)
[2017-01-24] MEDS ORDERED: Naloxone 0.4 MG/ML INJ IVP PRN (15:12)
[2017-01-24] MEDS ORDERED: Acetaminophen 325 MG TABLET PO PRN (15:12)
[2017-01-24] MEDS ORDERED: Nitroglycerin 0.4 MG TAB.SUBL SL PRN (15:12)
[2017-01-24] MEDS: 0.9 % Sodium Chloride 1,000 ML IVC SCH (15:30)
--- NOTE | 2017-01-24 15:47 | Electrocardiograph Report ---
[address] [place], [place] [address] Test Date: 2017-01-24 Pat Name: Yuly Hernandez Department: [id number] Room: [facility] Gender: F Tie Layer: : 1950 Requested By: Sena Lemos Order Number: [id number] Reading MD: Josefina Loja Measurements Intervals [place] Rate: 79 P: [place]: 0 QRS: -28 QRSD: 98 T: 191 QT: 399 QTc: 433 Interpretive Statements ATRIAL FIBRILLATION LOW QRS VOLTAGE IN EXTREMITY LEADS POSSIBLE ANTERIOR MYOCARDIAL INFARCTION, PROBABLY OLD ABNORMAL RHYTHM ECG Electronically Signed On 01-24-2017 15:45:41 EST by Josefina Loja
[2017-01-24] MEDS: Methocarbamol 500 MG TABLET PO SCH (17:15)
[2017-01-24] MEDS ORDERED: Dextrose Gel 15 GM PO PRN ×2 (17:17)
[2017-01-24] MEDS ORDERED: D5% in Water 1,000 ML IV PRN (17:17)
[2017-01-24] MEDS ORDERED: *HR* Dextrose 50 % in Water (Syg) 50 ML SYRINGE IVP PRN (17:17)
[2017-01-24] MEDS: Levofloxacin 500 MG/100 ML 500 MG/100 ML BAG IVPB SCH (17:22)
[2017-01-24] MEDS: Insulin LISPRO 300 UNITS/3 ML VIAL SQ SCH ×3 (17:54→23:50)
[2017-01-24] MEDS: Ipratropium/Albuterol Neb 3 ML IH SCH ×2 (18:05→21:23)
[2017-01-24] MEDS: Pregabalin 50 MG CAPSULE PO SCH (23:47)
[2017-01-24] MEDS: Famotidine 20 MG TABLET PO SCH (23:47)
[2017-01-25] MEDS: Ipratropium/Albuterol Neb 3 ML IH SCH (04:29)
[2017-01-25] MEDS: 0.9 % Sodium Chloride 1,000 ML IVC SCH (04:58)
[2017-01-25] MEDS: Methocarbamol 500 MG TABLET PO SCH ×4 (05:03→22:32)
[2017-01-25 05:27] LABS: Basophils % 0.1 %; Hematocrit 37.6 % (35.3-44.9); Hemoglobin 12.5 g/dL (11.5-15.4); Immature Granulocytes % 0.9 % (0-4); Lymphocytes # 0.9 K/mcL (0.6-4.6); Lymphocytes % 7.8 %; Mean Corpuscular HGB Conc 33.2 g/dL (31.6-35.5); Mean Corpuscular Hemoglobin 28.3 pg (28.0-33.3); Mean Corpuscular Volume 85.1 fL (83.0-100.0); Mean Platelet Volume 11.1 fL (9.4-12.4); Monocytes % 0.3 %; Platelet Count 308 K/mcL (140-400); Red Blood Count 4.42 M/mcL (3.82-4.97); Segmented Neutrophils % 90.9 %
[2017-01-25 05:32] LABS: Neutrophils # 10.5 K/mcL (1.6-8.9)
[2017-01-25 05:38] LABS: INR 1.5; Prothrombin Time 16.2 Seconds (9.4-12.1)
[2017-01-25 05:41] LABS: Activated Partial Thrombo Time 33.7 Seconds (26.0-36.0)
[2017-01-25 05:55] LABS: BUN/Creatinine Ratio 13 (6-26); Blood Urea Nitrogen 14 mg/dL (7-20); Calcium 9.1 mg/dL (8.6-10.8); Carbon Dioxide 25 mEq/L (19-29); Chloride 100 mEq/L (98-109); Glucose 224 mg/dL (70-99); Osmolality,Calculated 295 (280-300); Potassium 3.5 mEq/L (3.5-4.5); Sodium 139 mEq/L (136-145); eGFR For African Americans > 60 (> 60); eGFR For Non-African Americans 52 (> 60)
[2017-01-25] MEDS: Furosemide 40 MG TABLET PO SCH (08:48)
[2017-01-25] MEDS: Aspirin 81 MG TAB.CHEW PO SCH (08:48)
[2017-01-25] MEDS: Pregabalin 50 MG CAPSULE PO SCH ×2 (08:49→22:31)
[2017-01-25] MEDS: *HR* Rivaroxaban 10 MG TABLET PO SCH (08:49)
[2017-01-25] MEDS: Famotidine 20 MG TABLET PO SCH ×2 (08:51→22:31)
[2017-01-25] MEDS: (Saxagliptin Hcl [Onglyza] 5 MG) PO SCH (08:52)
[2017-01-25] MEDS: Insulin LISPRO 300 UNITS/3 ML VIAL SQ SCH ×4 (08:53→22:36)
--- NOTE | 2017-01-25 09:45 | Internal Med History&Physical ---
Date of Encounter: 01/25/17 Time of Encounter: 09:20 Assessment and Plan (1) Acute bronchitis Current visit: Yes Status: Acute She was started on Levaquin and Solu-Medrol through the emergency room. I will change her to oral prednisone and add Robitussin Qualifiers: Bronchitis organism: unspecified organism Qualified Code(s): J20.9 - Acute bronchitis, unspecified (2) Chronic atrial fibrillation Current visit: No Status: Chronic Continue Xarelto (3) Diabetes mellitus Current visit: No Status: Chronic Hemoglobin A1c was 6.0% on 11/22/2016. Continue Onglyza and Accu-Cheks with SSI. Qualifiers: Diabetes mellitus type: type 2 Diabetes mellitus complication status: with kidney complications Diabetes mellitus complication detail: with chronic kidney disease Diabetes mellitus termite treater insulin use: without termite treater use Chronic kidney disease stage: stage 3 (moderate) Qualified Code(s): E11.22 - Type 2 diabetes mellitus with diabetic chronic kidney disease; N18.3 - Chronic kidney disease, stage 3 (moderate) Internal Medicine - H&P: HPI Chief complaint: Dyspnea and cough Admitted From: Home Plans for Post Hospital Care: Home History of present illness: Ms. Hernandez is a 66 year old female came to the emergency room stating she had persistent dyspnea and cough since discharge from [facility] January 14 after admission for influenza A. She states she has coughed up green sputum. He felt weak and not been able to walk since her last hospitalization. She was evaluated in emergency room and admitted to [facility] floor for ongoing care needs. Her respiratory history is significant for being a lifelong nonsmoker. She has a diagnosis of asthma and uses ProAir MDI and albuterol nebs prn. Past Med Surg Social Fam HX - Past Medical History Medical history: asthma, CHF, COPD, CVA, diabetes, hyperlipidemia, hypertension , kidney stones Psychiatric history: anxiety, depression - Past Surgical History Surgical History: angioplasty/stent, cholecystectomy, herniorrhaphy, ureteral stent - Social History Smoking Status: Never smoker Smokeless Tobacco Status: No Alcohol use: none Drug use: none Internal Medicine - H&P: Meds Aspirin 81 mg PO DAILY tab.chew 06/24/15 [Rx] Carvedilol [Coreg] 25 mg PO BIDAC tablet 06/24/15 [Rx] Furosemide [Lasix] 40 mg PO DAILY #30 tablet 06/24/15 [Rx] Isosorbide DInitrate [Isordil] 30 mg PO BID tablet 06/24/15 [Rx] Nitroglycerin 0.4 mg SL Q5MIN PRN #15 tab.subl 06/24/15 [Rx] Ranitidine HCl [Zantac] 150 mg PO BID #30 tablet 06/24/15 [Rx] Saxagliptin HCl [Onglyza] 5 mg PO DAILY #30 tablet 06/24/15 [Rx] Sertraline [Zoloft] 50 mg PO DAILY tablet 06/24/15 [Rx] Acetaminophen [Tylenol] 650 mg PO QID PRN 01/12/17 [History] Amlodipine Besylate 10 mg PO DAILY 01/12/17 [History] Dicyclomine [Bentyl] 10 mg PO QID PRN 01/12/17 [History] Duloxetine HCl [Cymbalta] 60 mg PO DAILY 01/12/17 [History] HydrALAZINE 50 mg PO TID 01/12/17 [History] Methocarbamol [Robaxin-750] 750 mg PO TID 01/12/17 [History] Naproxen Sodium [Aleve] 220 mg PO BID PRN 01/12/17 [History] Pantoprazole Sodium [Protonix] 40 mg PO DAILY 01/12/17 [History] Pravastatin Sodium [Pravachol] 40 mg PO HS 01/12/17 [History] Pregabalin [Lyrica] 100 mg PO BID 01/12/17 [History] Rivaroxaban [Xarelto] 15 mg PO DAILY 01/12/17 [History] Allergies Penicillins [PCN] Allergy (Severe, Verified 01/24/17 12:00) See Comments reaction documented in 566 diphenhydramine Allergy (Verified 01/24/17 12:00) See Comments reaction documented in 566 All Systems PM: A 10-system review of systems was performed and is negative for pertinent findings except as documented above in the HPI. Review of systems: Review of systems from her recent history of physical reviewed and revised as below. Gen.: States her weight has decreased by 20 pounds in the past year, intentionally Cardiovascular: She has history of hypertension. She has chronic atrial fibrillation and takes Xarelto. She claims a history of heart failure but an echocardiogram done 06/24/2015 showed LVEF of 60-65%. There was indeterminate diastolic function due to atrial fibrillation. No significant valvular abnormalities were seen. She had LAE at 4.2 cm. She had a Regadenoson stress test 04/23/2016 which showed no EKG or perfusion changes to indicate ischemia or infarct. She denies DVT or pulmonary embolus Respiratory: As per history of present illness GI: She has had cholecystectomy. She has GERD and IBS. She claims a colonoscopy done early December 2016 was unremarkable. She denies disorders of her liver or exocrine pancreas : She has chronic kidney disease but has not yet seen a homebirth midwife. She denies other kidney or bladder disorders Neurologic: She claims she has had 5 strokes with the most recent one in 2009. Sequelae include a swallowing deficit and left hemiparesis. She uses a walker for ambulation. She denies seizures. Endocrine: She was diagnosed with DM 2 approximately 2013. Her most recent hemoglobin A1c was 6.0% on 11/22/2016. She is on a statin but denies a diagnosis of hyperlipidemia. She denies thyroid disease. Hematology/oncology: She denies blood disorders cancers or anemia Psychiatric: She is a diagnosis of depression but denies anxiety or other mental health issues Musk skeletal: She has DJD but denies gout or other bone joint or muscle disorders. - Constitutional Vitals: Temp Pulse Resp BP Pulse Ox 97.8 F 87 16 146/69 92 L 01/25/17 06:13 01/25/17 06:13 01/25/17 06:13 01/25/17 06:13 01/25/17 06:13 Exam: Gen.: She is a well-developed overweight female lying in bed and appears in minimal distress at present time. HEENT: Head is atraumatic and normal cephalic. Eyes: EOMI. There is no scleral icterus. Mouth: Mucosa is moist. Neck: Supple and nontender. There is no thyromegaly or adenopathy noted. Heart: Regular without murmurs gallops or ectopics. Lungs: No wheezes or crackles are heard. Abdomen: She has a large abdomen. It is nontender to palpation. Extremities: There is no cyanosis edema or clubbing noted. Dorsalis pedis and posterior tibial pulses are 1-2 over 2 bilaterally. Neurologic: Mental status: She is awake and able to answer questions appropriately. Cranial nerves: Smile is symmetric. Forehead wrinkles bilaterally. Tongue protrudes midline. EOMI. There is no pronator drift. She could not fully extend the fingers on her left hand. Cerebellar: Finger to nose is intact with the right hand. She does not reach her nose on attempting with the left hand. No further neurologic testing is attempted. Skin: Warm and dry Internal Med - H&P Results - Labs CBC & Chem 7: 01/25/17 04:27 01/25/17 04:27 Labs: Short CBC 01/25/17 Range/Units 04:27 WBC 11.5 H (4.3-11.1) K/mcL Hgb 12.5 (11.5-15.4) g/dL Hct 37.6 (35.3-44.9) % Plt Count 308 (140-400) K/mcL Neutrophils # 10.5 H (1.6-8.9) K/mcL BMP 01/25/17 04:27 Sodium 139 Potassium 3.5 Chloride 100 Carbon Dioxide 25 BUN 14 Creatinine 1.06 Glucose 224 H Calcium 9.1
[2017-01-25] MEDS: Albuterol 2.5 MG/3 ML NEBULIZER IH PRN (13:15)
[2017-01-25] MEDS: Levofloxacin 500 MG/100 ML 500 MG/100 ML BAG IVPB SCH (14:23)
[2017-01-25] MEDS: PredniSONE 10 MG TABLET PO SCH (17:39)
[2017-01-26 05:49] LABS: Basophils % 0.1 %; Hematocrit 34.8 % (35.3-44.9); Hemoglobin 11.7 g/dL (11.5-15.4); Immature Granulocytes % 0.8 % (0-4); Lymphocytes % 4.9 %; Mean Corpuscular HGB Conc 33.6 g/dL (31.6-35.5); Mean Corpuscular Hemoglobin 28.7 pg (28.0-33.3); Mean Corpuscular Volume 85.3 fL (83.0-100.0); Mean Platelet Volume 10.9 fL (9.4-12.4); Monocytes # 0.3 K/mcL (0.0-1.3); Monocytes % 1.7 %; Platelet Count 286 K/mcL (140-400); Red Blood Count 4.08 M/mcL (3.82-4.97); Red Cell Distribution Width 13.2 % (11.5-14.5); Segmented Neutrophils % 92.5 %
[2017-01-26 05:50] LABS: Neutrophils # 17.9 K/mcL (1.6-8.9)
[2017-01-26 06:02] LABS: BUN/Creatinine Ratio 19 (6-26); Blood Urea Nitrogen 21 mg/dL (7-20); Carbon Dioxide 26 mEq/L (19-29); Chloride 100 mEq/L (98-109); Glucose 230 mg/dL (70-99); Osmolality,Calculated 298 (280-300); Potassium 3.5 mEq/L (3.5-4.5); Sodium 139 mEq/L (136-145); eGFR For African Americans > 60 (> 60); eGFR For Non-African Americans 50 (> 60)
[2017-01-26] MEDS: Insulin LISPRO 300 UNITS/3 ML VIAL SQ SCH ×4 (07:49→22:31)
[2017-01-26] MEDS: Aspirin 81 MG TAB.CHEW PO SCH (07:50)
[2017-01-26] MEDS: Pregabalin 50 MG CAPSULE PO SCH ×2 (07:51→22:28)
[2017-01-26] MEDS: Furosemide 40 MG TABLET PO SCH (07:51)
[2017-01-26] MEDS: PredniSONE 10 MG TABLET PO SCH (07:51)
[2017-01-26] MEDS: Famotidine 20 MG TABLET PO SCH ×2 (07:51→22:30)
[2017-01-26] MEDS: Methocarbamol 500 MG TABLET PO SCH ×3 (07:51→22:30)
[2017-01-26] MEDS: *HR* Rivaroxaban 10 MG TABLET PO SCH (07:52)
[2017-01-26] MEDS: (Saxagliptin Hcl [Onglyza] 5 MG) PO SCH (07:52)
[2017-01-26] MEDS: Albuterol 2.5 MG/3 ML NEBULIZER IH PRN (09:14)
--- NOTE | 2017-01-26 11:30 | Internal Med Progress Note ---
Date of Encounter: 01/26/17 Time of Encounter: 11:20 - Assessment and plan (1) Acute bronchitis Current Visit: Yes Status: Acute Assessment and plan: January 26. We will continue Levaquin but discontinue prednisone. Recheck labs in a.m. Qualifiers: Bronchitis organism: unspecified organism Qualified Code(s): J20.9 - Acute bronchitis, unspecified (2) Chronic atrial fibrillation Current Visit: No Status: Chronic Assessment and plan: January 26. Continue Xarelto (3) Diabetes mellitus Current Visit: No Status: Chronic Assessment and plan: January 26. Hemoglobin A1c was 6.0% on 11/22/2016. Continue Onglyza and Accu- Cheks with SSI. Qualifiers: Diabetes mellitus type: type 2 Diabetes mellitus complication status: with kidney complications Diabetes mellitus complication detail: with chronic kidney disease Diabetes mellitus longterm insulin use: without longterm use Chronic kidney disease stage: stage 3 (moderate) Qualified Code(s): E11.22 - Type 2 diabetes mellitus with diabetic chronic kidney disease; N18.3 - Chronic kidney disease, stage 3 (moderate) - Subjective Interval history: January 26. She has no new complaints. - Constitutional Vitals: Temp Pulse Resp BP Pulse Ox 97.6 F 73 18 111/61 97 01/26/17 11:08 01/26/17 11:08 01/26/17 11:08 01/26/17 11:08 01/26/17 11:08 Exam: She is lying in bed and is lethargic. She does arouse slightly and answers an occasional question. Heart is irregularly irregular. Lungs are clear anteriorly. Extremities show no edema. I reviewed her medications and lab results. Internal Medicine: Result - Labs CBC & Chem 7: 01/26/17 05:00 01/26/17 05:00 Labs: Short CBC 01/26/17 Range/Units 05:00 WBC 19.3 H D (4.3-11.1) K/mcL Hgb 11.7 (11.5-15.4) g/dL Hct 34.8 L (35.3-44.9) % Plt Count 286 (140-400) K/mcL Neutrophils # 17.9 H (1.6-8.9) K/mcL BMP 01/26/17 05:00 Sodium 139 Potassium 3.5 Chloride 100 Carbon Dioxide 26 BUN 21 H Creatinine 1.08 Glucose 230 H Calcium 9.0 - ABG Interpretation ABG results: PT/INR, D-dimer PT 16.2 Seconds (9.4-12.1) H 01/25/17 04:27 Consult Discharge Plan - Plan Referrals: Marissa Madden, MANOHAR [Primary Care Provider] - 1 week
[2017-01-26] MEDS: Levofloxacin 500 MG/100 ML 500 MG/100 ML BAG IVPB SCH (15:19)
[2017-01-27 06:30] LABS: Basophils % 0.1 %; Hematocrit 35.7 % (35.3-44.9); Hemoglobin 11.8 g/dL (11.5-15.4); Immature Granulocytes % 0.7 % (0-4); Lymphocytes % 16.2 %; Mean Corpuscular HGB Conc 33.1 g/dL (31.6-35.5); Mean Corpuscular Hemoglobin 28.4 pg (28.0-33.3); Mean Platelet Volume 11.1 fL (9.4-12.4); Monocytes # 0.9 K/mcL (0.0-1.3); Monocytes % 7.2 %; Platelet Count 265 K/mcL (140-400); Red Blood Count 4.15 M/mcL (3.82-4.97); Red Cell Distribution Width 13.4 % (11.5-14.5); Segmented Neutrophils % 75.8 %
[2017-01-27 06:41] LABS: Calcium 8.7 mg/dL (8.6-10.8); Potassium 3.4 mEq/L (3.5-4.5)
[2017-01-27 06:54] LABS: Neutrophils # 9.5 K/mcL (1.6-8.9)
[2017-01-27] MEDS: Insulin LISPRO 300 UNITS/3 ML VIAL SQ SCH ×4 (08:11→22:28)
[2017-01-27] MEDS: *HR* Rivaroxaban 10 MG TABLET PO SCH (09:58)
[2017-01-27] MEDS: Famotidine 20 MG TABLET PO SCH ×2 (09:58→22:28)
[2017-01-27] MEDS: Furosemide 40 MG TABLET PO SCH (09:58)
[2017-01-27] MEDS: Aspirin 81 MG TAB.CHEW PO SCH (09:58)
[2017-01-27] MEDS: Pregabalin 50 MG CAPSULE PO SCH ×2 (09:58→22:28)
[2017-01-27] MEDS: Methocarbamol 500 MG TABLET PO SCH ×3 (10:03→22:28)
[2017-01-27] MEDS: (Saxagliptin Hcl [Onglyza] 5 MG) PO SCH (10:05)
--- NOTE | 2017-01-27 10:58 | Internal Med Progress Note ---
Date of Encounter: 01/27/17 Time of Encounter: 10:50 - Assessment and plan (1) Acute bronchitis Current Visit: Yes Status: Acute Assessment and plan: January 26. We will continue Levaquin but discontinue prednisone. Recheck labs in a.m. January 27. Continue Levaquin Qualifiers: Bronchitis organism: unspecified organism Qualified Code(s): J20.9 - Acute bronchitis, unspecified (2) Chronic atrial fibrillation Current Visit: No Status: Chronic Assessment and plan: January 26. Continue Xarelto (3) Diabetes mellitus Current Visit: No Status: Chronic Assessment and plan: January 26. Hemoglobin A1c was 6.0% on 11/22/2016. Continue Onglyza and Accu- Cheks with SSI. Qualifiers: Diabetes mellitus type: type 2 Diabetes mellitus complication status: with kidney complications Diabetes mellitus complication detail: with chronic kidney disease Diabetes mellitus correction insulin use: without intermediate card tender use Chronic kidney disease stage: stage 3 (moderate) Qualified Code(s): E11.22 - Type 2 diabetes mellitus with diabetic chronic kidney disease; N18.3 - Chronic kidney disease, stage 3 (moderate) (4) Inability to walk Current Visit: Yes Status: Acute Assessment and plan: January 27. She states she last walked 3 weeks ago. Will continue PT and OT intervention - Subjective Interval history: January 26. She has no new complaints. January 27. She has no new complaints and states she feels better. - Constitutional Vitals: Temp Pulse Resp BP Pulse Ox 97.6 F 74 16 132/76 98 01/27/17 07:49 01/27/17 07:49 01/27/17 07:49 01/27/17 07:49 01/27/17 07:49 Exam: She is resting comfortably in bed wearing oxygen and is more awake and talkative. I reviewed her medications and lab results. Notification has been received she can be changed from observation to inpatient Internal Medicine: Result - Labs CBC & Chem 7: 01/27/17 05:35 01/27/17 05:35 Labs: Short CBC 01/27/17 Range/Units 05:35 WBC 12.5 H (4.3-11.1) K/mcL Hgb 11.8 (11.5-15.4) g/dL Hct 35.7 (35.3-44.9) % Plt Count 265 (140-400) K/mcL Neutrophils # 9.5 H (1.6-8.9) K/mcL BMP 01/27/17 05:35 Sodium 140 Potassium 3.4 L Chloride 100 Carbon Dioxide 29 BUN 26 H Creatinine 1.15 H Glucose 155 H Calcium 8.7 - ABG Interpretation ABG results: PT/INR, D-dimer PT 16.2 Seconds (9.4-12.1) H 01/25/17 04:27 Consult Discharge Plan - Plan Referrals: Marissa Madden, MANOHAR [Primary Care Provider] - 1 week
[2017-01-27] MEDS: Levofloxacin 500 MG/100 ML 500 MG/100 ML BAG IVPB SCH (16:47)
[2017-01-27 17:44] LABS: Adenovirus Not Detected (Not Detect); Bordetella Pertussis Not Detected (Not Detect); Chlamydophila pneumoniae Not Detected (Not Detect); Coronavirus 229E Not Detected (Not Detect); Coronavirus HKU1 Not Detected (Not Detect); Coronavirus NL63 Not Detected (Not Detect); Coronavirus OC43 Not Detected (Not Detect); Human Metapneumovirus Not Detected (Not Detect); Human Rhinovirus/Enterovirus Not Detected (Not Detect); Influenza A Subtype 2009 H1 Not Detected (Not Detect); Influenza A Untypeable Not Detected (Not Detect); Influenza B Not Detected (Not Detect); Mycoplasma pneumoniae Not Detected (Not Detect); Parainfluenza Virus 1 Not Detected (Not Detect); Parainfluenza Virus 2 Not Detected (Not Detect); Parainfluenza Virus 3 Not Detected (Not Detect); Parainfluenza Virus 4 Not Detected (Not Detect); Respiratory Syncytial Virus Not Detected (Not Detect)
[2017-01-28] MEDS: Insulin LISPRO 300 UNITS/3 ML VIAL SQ SCH ×4 (08:51→21:29)
[2017-01-28] MEDS: Aspirin 81 MG TAB.CHEW PO SCH (09:41)
[2017-01-28] MEDS: Furosemide 40 MG TABLET PO SCH (09:42)
[2017-01-28] MEDS: Pregabalin 50 MG CAPSULE PO SCH ×2 (09:42→21:30)
[2017-01-28] MEDS: Famotidine 20 MG TABLET PO SCH ×2 (09:43→21:29)
[2017-01-28] MEDS: *HR* Rivaroxaban 10 MG TABLET PO SCH (09:43)
[2017-01-28] MEDS: Methocarbamol 500 MG TABLET PO SCH ×3 (09:44→21:28)
[2017-01-28] MEDS: (Saxagliptin Hcl [Onglyza] 5 MG) PO SCH (11:55)
--- NOTE | 2017-01-28 15:03 | Internal Med Progress Note ---
Date of Encounter: 01/28/17 Time of Encounter: 14:55 - Assessment and plan (1) Acute bronchitis Current Visit: Yes Status: Acute Assessment and plan: January 26. We will continue Levaquin but discontinue prednisone. Recheck labs in a.m. January 27. Continue Levaquin January 28. Her viral respiratory panel came back negative. Calcitonin level was low. We will continue Levaquin Qualifiers: Bronchitis organism: unspecified organism Qualified Code(s): J20.9 - Acute bronchitis, unspecified (2) Chronic atrial fibrillation Current Visit: No Status: Chronic Assessment and plan: January 26. Continue Xarelto (3) Diabetes mellitus Current Visit: No Status: Chronic Assessment and plan: January 26. Hemoglobin A1c was 6.0% on 11/22/2016. Continue Onglyza and Accu- Cheks with SSI. Qualifiers: Diabetes mellitus type: type 2 Diabetes mellitus complication status: with kidney complications Diabetes mellitus complication detail: with chronic kidney disease Diabetes mellitus mcc insulin use: without mcc use Chronic kidney disease stage: stage 3 (moderate) Qualified Code(s): E11.22 - Type 2 diabetes mellitus with diabetic chronic kidney disease; N18.3 - Chronic kidney disease, stage 3 (moderate) (4) Inability to walk Current Visit: Yes Status: Acute Assessment and plan: January 27. She states she last walked 3 weeks ago. Will continue PT and OT intervention January 28. Improved. Continue therapy intervention. Anticipate discharge to swing bed on 01/30/2017. - Subjective Interval history: January 26. She has no new complaints. January 27. She has no new complaints and states she feels better. January 28. She has no new complaints. She states she walked with the therapist today - Constitutional Vitals: Temp Pulse Resp BP Pulse Ox 97.5 F L 78 18 108/64 95 01/28/17 14:00 01/28/17 14:00 01/28/17 14:00 01/28/17 14:00 01/28/17 14:00 Exam: She is resting comfortably in bed and appears in no acute distress. Her affect is bright and cheerful. Reviewed her medications and lab results. Internal Medicine: Result - Labs CBC & Chem 7: 01/27/17 05:35 01/27/17 05:35 - ABG Interpretation ABG results: PT/INR, D-dimer PT 16.2 Seconds (9.4-12.1) H 01/25/17 04:27 Consult Discharge Plan - Plan Referrals: Marissa Madden CNP [Primary Care Provider] - 1 week
[2017-01-28] MEDS: Levofloxacin 500 MG/100 ML 500 MG/100 ML BAG IVPB SCH (15:52)
[2017-01-28] MEDS: Albuterol 2.5 MG/3 ML NEBULIZER IH PRN (21:23)
[2017-01-29] MEDS: Insulin LISPRO 300 UNITS/3 ML VIAL SQ SCH ×4 (07:42→21:32)
[2017-01-29] MEDS ORDERED: MOM Conc 10 ML UD.LIQ PO PRN (09:45)
[2017-01-29] MEDS: Aspirin 81 MG TAB.CHEW PO SCH (09:56)
--- NOTE | 2017-01-29 09:57 | Internal Med Progress Note ---
Date of Encounter: 01/29/17 Time of Encounter: 09:45 - Assessment and plan (1) Acute bronchitis Current Visit: Yes Status: Acute Assessment and plan: January 26. We will continue Levaquin but discontinue prednisone. Recheck labs in a.m. January 27. Continue Levaquin January 28. Her viral respiratory panel came back negative. Calcitonin level was low. We will continue Levaquin January 29. Anticipate discharge to swing bed tomorrow and stopping antibiotics Qualifiers: Bronchitis organism: unspecified organism Qualified Code(s): J20.9 - Acute bronchitis, unspecified (2) Chronic atrial fibrillation Current Visit: No Status: Chronic Assessment and plan: January 26. Continue Xarelto (3) Diabetes mellitus Current Visit: No Status: Chronic Assessment and plan: January 26. Hemoglobin A1c was 6.0% on 11/22/2016. Continue Onglyza and Accu- Cheks with SSI. Qualifiers: Diabetes mellitus type: type 2 Diabetes mellitus complication status: with kidney complications Diabetes mellitus complication detail: with chronic kidney disease Diabetes mellitus intermediate card tender insulin use: without long-term use Chronic kidney disease stage: stage 3 (moderate) Qualified Code(s): E11.22 - Type 2 diabetes mellitus with diabetic chronic kidney disease; N18.3 - Chronic kidney disease, stage 3 (moderate) (4) Inability to walk Current Visit: Yes Status: Acute Assessment and plan: January 27. She states she last walked 3 weeks ago. Will continue PT and OT intervention January 28. Improved. Continue therapy intervention. Anticipate discharge to swing bed on 01/30/2017. - Subjective Interval history: January 26. She has no new complaints. January 27. She has no new complaints and states she feels better. January 28. She has no new complaints. She states she walked with the therapist today January 29. She has no new complaints. - Constitutional Vitals: Temp Pulse Resp BP Pulse Ox 97.7 F 79 18 103/63 96 01/29/17 06:57 01/29/17 06:57 01/29/17 06:57 01/29/17 06:57 01/29/17 06:57 Exam: She is sitting in a wheelchair and appears fairly comfortable. Her affect is bright and cheerful. I reviewed her medications and lab results. Internal Medicine: Result - Labs CBC & Chem 7: 01/27/17 05:35 01/27/17 05:35 - ABG Interpretation ABG results: PT/INR, D-dimer PT 16.2 Seconds (9.4-12.1) H 01/25/17 04:27 Consult Discharge Plan - Plan Referrals: Marissa Madden CNP [Primary Care Provider] - 1 week
[2017-01-29] MEDS: Furosemide 40 MG TABLET PO SCH (09:58)
[2017-01-29] MEDS: Famotidine 20 MG TABLET PO SCH ×2 (09:59→21:34)
[2017-01-29] MEDS: Methocarbamol 500 MG TABLET PO SCH ×3 (09:59→21:33)
[2017-01-29] MEDS: *HR* Rivaroxaban 15 MG TABLET PO SCH (09:59)
[2017-01-29] MEDS: Pregabalin 50 MG CAPSULE PO SCH ×2 (10:00→21:39)
[2017-01-29] MEDS: (Saxagliptin Hcl [Onglyza] 5 MG) PO SCH (10:06)
[2017-01-29] MEDS: Levofloxacin 500 MG/100 ML 500 MG/100 ML BAG IVPB SCH (15:44)
[2017-01-30 06:21] LABS: Basophils % 0.1 %; Eosinophils # 0.3 K/mcL (0.0-0.6); Hematocrit 35.7 % (35.3-44.9); Hemoglobin 12.1 g/dL (11.5-15.4); Immature Granulocytes % 0.5 % (0-4); Lymphocytes # 1.8 K/mcL (0.6-4.6); Lymphocytes % 20.1 %; Mean Corpuscular HGB Conc 33.9 g/dL (31.6-35.5); Mean Corpuscular Volume 85.6 fL (83.0-100.0); Mean Platelet Volume 11.1 fL (9.4-12.4); Monocytes # 0.6 K/mcL (0.0-1.3); Monocytes % 7.1 %; Platelet Count 231 K/mcL (140-400); Red Blood Count 4.17 M/mcL (3.82-4.97); Red Cell Distribution Width 13.2 % (11.5-14.5); Segmented Neutrophils % 69.2 %
[2017-01-30 06:37] LABS: Potassium 3.6 mEq/L (3.5-4.5); Sodium 138 mEq/L (136-145)
[2017-01-30 06:38] LABS: BUN/Creatinine Ratio 13 (6-26); Blood Urea Nitrogen 13 mg/dL (7-20); Calcium 8.6 mg/dL (8.6-10.8); Carbon Dioxide 31 mEq/L (19-29); Chloride 97 mEq/L (98-109); Glucose 112 mg/dL (70-99); Osmolality,Calculated 287 (280-300); eGFR For African Americans > 60 (> 60); eGFR For Non-African Americans 56 (> 60)
[2017-01-30] MEDS: Methocarbamol 500 MG TABLET PO SCH (08:36)
[2017-01-30] MEDS: Pregabalin 50 MG CAPSULE PO SCH (08:38)
[2017-01-30] MEDS: Furosemide 40 MG TABLET PO SCH (08:39)
[2017-01-30] MEDS: Aspirin 81 MG TAB.CHEW PO SCH (08:39)
[2017-01-30] MEDS: *HR* Rivaroxaban 15 MG TABLET PO SCH (08:39)
[2017-01-30] MEDS: Famotidine 20 MG TABLET PO SCH (08:39)
[2017-01-30] MEDS: Insulin LISPRO 300 UNITS/3 ML VIAL SQ SCH (08:40)
[2017-01-30] MEDS: Albuterol 2.5 MG/3 ML NEBULIZER IH PRN (10:27)
--- NOTE | 2017-01-30 10:59 | Discharge Summary ---
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 insulin use: without snf use Chronic kidney disease stage: stage 3 (moderate) Qualified Code(s): E11.22 - Type 2 diabetes mellitus with diabetic chronic kidney disease; N18.3 - Chronic kidney disease, stage 3 (moderate) (4) Inability to walk Priority: Secondary Status: Acute - Discharge Medications Home Medications: Aspirin 81 mg PO DAILY tab.chew 06/24/15 [Rx] Carvedilol [Coreg] 25 mg PO BIDAC tablet 06/24/15 [Rx] Furosemide [Lasix] 40 mg PO DAILY #30 tablet 06/24/15 [Rx] Isosorbide DInitrate [Isordil] 30 mg PO BID tablet 06/24/15 [Rx] Nitroglycerin 0.4 mg SL Q5MIN PRN #15 tab.subl 06/24/15 [Rx] Ranitidine HCl [Zantac] 150 mg PO BID #30 tablet 06/24/15 [Rx] Saxagliptin HCl [Onglyza] 5 mg PO DAILY #30 tablet 06/24/15 [Rx] Sertraline [Zoloft] 50 mg PO DAILY tablet 06/24/15 [Rx] Acetaminophen [Tylenol] 650 mg PO QID PRN 01/12/17 [History] Amlodipine Besylate 10 mg PO DAILY 01/12/17 [History] Dicyclomine [Bentyl] 10 mg PO QID PRN 01/12/17 [History] Duloxetine HCl [Cymbalta] 60 mg PO DAILY 01/12/17 [History] Methocarbamol [Robaxin-750] 750 mg PO TID 01/12/17 [History] Naproxen Sodium [Aleve] 220 mg PO BID PRN 01/12/17 [History] Pantoprazole Sodium [Protonix] 40 mg PO DAILY 01/12/17 [History] Pravastatin Sodium [Pravachol] 40 mg PO HS 01/12/17 [History] Pregabalin [Lyrica] 100 mg PO BID 01/12/17 [History] Rivaroxaban [Xarelto] 15 mg PO DAILY 01/12/17 [History] Albuterol Neb [Proventil Neb] 2.5 mg IH Q2H PRN #0 inhsol 01/30/17 [Rx] Allergies/Adverse Reactions: Allergies Penicillins [PCN] Allergy (Severe, Verified 01/24/17 12:00) See Comments reaction documented in 566 diphenhydramine Allergy (Verified 01/24/17 12:00) See Comments reaction documented in 566 Date of admission: 01/27/17 16:35 Primary care physician: Marissa Madden - Patient Status Disposition: Transfer Hospital Swing Bed Condition: Fair Functional capacity at discharge: uses cane/walker Overall status at discharge: patient is progressing back to baseline - Discharge Instructions - Diet and Activity Activity: as per physical therapy Diet: diabetic diet Hospital course: Ms. Hernandez is a 66 year old female who came to the emergency room stating she had persistent dyspnea and cough since discharge from [facility] January 14 after admission for influenza A. She states she has coughed up green sputum. She felt weak and not been able to walk since her last hospitalization. She was evaluated in emergency room and admitted to [facility] for ongoing care needs. Initial orders were written by the emergency room physician. I saw her on January 25 and performed a history and physical. She was started on Levaquin and Solu-Medrol. I changed her to oral prednisone. WBC and left shift normalized by the day of discharge to swing bed. Antibiotics will not be continued in swing bed. Physical therapy and occupational therapy evaluations with ongoing interventions were done. She had significant progress and was able to ambulate a few steps in therapy. She is being discharged to swing bed to continue rehabilitation therapy prior to returning home. - Time Spent with Patient Total time spent providing and/or coordinating discharge services: - Constitutional Vitals: Temp Pulse Resp BP Pulse Ox 97.6 F 90 17 106/71 97 01/30/17 07:54 01/30/17 07:54 01/30/17 10:28 01/30/17 07:54 01/30/17 10:28
[2017-01-30 11:26] VITALS: BP 101/63
== END 2017-01-30 11:02 | disposition other institution (70) | DRG 191 ==
LOC: EMEROOPIK 11:58 → INPPIK 11:58
PROVIDERS: ADMIT Internal Medicine; ATTEND Internal Medicine

== ENCOUNTER 2017-01-30 11:44 | Inpatient (IN) ==
[2017-01-30] MEDS ORDERED: Nitroglycerin 0.4 MG TAB.SUBL SL PRN (13:28)
[2017-01-30] MEDS ORDERED: Dextrose Gel 15 GM PO PRN ×2 (13:35)
[2017-01-30] MEDS ORDERED: D5% in Water 1,000 ML IV PRN (13:35)
[2017-01-30] MEDS ORDERED: *HR* Dextrose 50 % in Water (Syg) 50 ML SYRINGE IVP PRN (13:35)
[2017-01-30] MEDS: Methocarbamol 500 MG TABLET PO SCH ×2 (15:23→21:43)
[2017-01-30] MEDS: Insulin LISPRO 300 UNITS/3 ML VIAL SQ SCH ×2 (18:11→21:44)
[2017-01-30] MEDS: Famotidine 20 MG TABLET PO SCH (21:43)
[2017-01-30] MEDS: Pregabalin 50 MG CAPSULE PO SCH (21:43)
[2017-01-31] MEDS: Furosemide 40 MG TABLET PO SCH (08:10)
[2017-01-31] MEDS: Famotidine 20 MG TABLET PO SCH ×2 (08:10→21:58)
[2017-01-31] MEDS: Methocarbamol 500 MG TABLET PO SCH ×3 (08:11→21:58)
[2017-01-31] MEDS: Pregabalin 50 MG CAPSULE PO SCH ×2 (08:11→21:58)
[2017-01-31] MEDS: Aspirin 81 MG TAB.CHEW PO SCH (08:11)
[2017-01-31] MEDS: *HR* Rivaroxaban 15 MG TABLET PO SCH (08:11)
[2017-01-31] MEDS: Insulin LISPRO 300 UNITS/3 ML VIAL SQ SCH ×4 (08:12→21:59)
[2017-01-31] MEDS: ONGLYZA 5MG PO SCH (08:21)
[2017-01-31] MEDS: Albuterol 2.5 MG/3 ML NEBULIZER IH PRN ×2 (09:54→21:37)
--- NOTE | 2017-01-31 10:36 | Internal Med Progress Note ---
Date of Encounter: 01/31/17 Time of Encounter: 10:25 - Assessment and plan (1) Chronic atrial fibrillation Current Visit: No Status: Chronic Assessment and plan: January 31. Continue Xarelto (2) Diabetes mellitus Current Visit: No Status: Chronic Assessment and plan: January 31. Hemoglobin A1c was 6.0% on 11/22/2016. Continue Onglyza and Accu- Cheks with SSI. Qualifiers: Diabetes mellitus type: type 2 Diabetes mellitus complication status: with kidney complications Diabetes mellitus complication detail: with chronic kidney disease Diabetes mellitus fci insulin use: without fci use Chronic kidney disease stage: stage 3 (moderate) Qualified Code(s): E11.22 - Type 2 diabetes mellitus with diabetic chronic kidney disease; N18.3 - Chronic kidney disease, stage 3 (moderate) (3) Inability to walk Current Visit: No Status: Acute Assessment and plan: January 31. Continue PT and OT. - Subjective Interval history: January 31. She was hospitalized in acute care January 24- with bronchitis. Viral respiratory panel was negative. Pro-calcitonin was less than 0.07. Levaquin and prednisone were given during acute care stay but not continued into swing bed. She made good progress in therapy during acute care and it was felt she would benefit from ongoing therapy in swing bed. She has no new complaints today. - Constitutional Vitals: Temp Pulse Resp BP Pulse Ox 97.5 F L 80 16 126/68 97 01/31/17 06:53 01/31/17 06:53 01/31/17 09:55 01/31/17 06:53 01/31/17 09:55 Exam: She is in therapy doing arm exercises and appears in no acute distress. Her affect is bright and cheerful. I reviewed her medications and lab results. Consult Discharge Plan - Plan Referrals: Simeon Davenport DO [Primary Care Provider] - 1 week
[2017-01-31] MEDS: Acetaminophen 325 MG TABLET PO PRN (22:03)
[2017-02-01] MEDS: Aspirin 81 MG TAB.CHEW PO SCH (07:52)
[2017-02-01] MEDS: Furosemide 40 MG TABLET PO SCH (07:52)
[2017-02-01] MEDS: *HR* Rivaroxaban 15 MG TABLET PO SCH (07:53)
[2017-02-01] MEDS: Famotidine 20 MG TABLET PO SCH ×2 (07:54→23:54)
[2017-02-01] MEDS: Methocarbamol 500 MG TABLET PO SCH ×3 (07:54→23:52)
[2017-02-01] MEDS: Pregabalin 50 MG CAPSULE PO SCH ×2 (07:56→23:54)
[2017-02-01] MEDS: Insulin LISPRO 300 UNITS/3 ML VIAL SQ SCH ×4 (08:00→23:51)
[2017-02-01] MEDS: ONGLYZA 5MG PO SCH (08:24)
[2017-02-01] MEDS: Albuterol 2.5 MG/3 ML NEBULIZER IH PRN (21:16)
--- NOTE | 2017-02-02 11:39 | Internal Med Progress Note ---
Date of Encounter: 02/02/17 Time of Encounter: 11:30 - Assessment and plan (1) Chronic atrial fibrillation Current Visit: No Status: Chronic Assessment and plan: January 31. Continue Xarelto (2) Diabetes mellitus Current Visit: No Status: Chronic Assessment and plan: January 31. Hemoglobin A1c was 6.0% on 11/22/2016. Continue Onglyza and Accu- Cheks with SSI. February 02. Blood sugars are satisfactory. Continue Onglyza and Accu-Cheks with SSI Qualifiers: Diabetes mellitus type: type 2 Diabetes mellitus complication status: with kidney complications Diabetes mellitus complication detail: with chronic kidney disease Diabetes mellitus care home insulin use: without continuous churn buttermaker use Chronic kidney disease stage: stage 3 (moderate) Qualified Code(s): E11.22 - Type 2 diabetes mellitus with diabetic chronic kidney disease; N18.3 - Chronic kidney disease, stage 3 (moderate) (3) Inability to walk Current Visit: No Status: Acute Assessment and plan: January 31. Continue PT and OT. February 02. She is improving in therapy. Anticipate discharge later this week. - Subjective Interval history: January 31. She was hospitalized in acute care January 24- with bronchitis. Viral respiratory panel was negative. Pro-calcitonin was less than 0.07. Levaquin and prednisone were given during acute care stay but not continued into swing bed. She made good progress in therapy during acute care and it was felt she would benefit from ongoing therapy in swing bed. She has no new complaints today. February 02. She has no new complaints and feels well - Constitutional Vitals: Temp Pulse Resp BP Pulse Ox 98.6 F 71 18 148/74 97 02/02/17 07:30 02/02/17 07:30 02/02/17 07:30 02/02/17 07:30 02/02/17 07:30 Exam: She is sitting in her wheelchair resting comfortably. Her lungs are clear. Her affect is bright and cheerful. I reviewed her medications and lab results. Consult Discharge Plan - Plan Referrals: Simeon Davenport DO [Primary Care Provider] - 1 week
[2017-02-02] MEDS: Methocarbamol 500 MG TABLET PO SCH ×3 (11:41→22:46)
[2017-02-02] MEDS: *HR* Rivaroxaban 15 MG TABLET PO SCH (11:42)
[2017-02-02] MEDS: Pregabalin 50 MG CAPSULE PO SCH ×2 (11:42→22:48)
[2017-02-02] MEDS: Aspirin 81 MG TAB.CHEW PO SCH (11:42)
[2017-02-02] MEDS: Famotidine 20 MG TABLET PO SCH ×2 (11:43→22:46)
[2017-02-02] MEDS: Insulin LISPRO 300 UNITS/3 ML VIAL SQ SCH ×4 (11:44→21:52)
[2017-02-02] MEDS: ONGLYZA 5MG PO SCH (11:51)
[2017-02-02] MEDS: Furosemide 40 MG TABLET PO SCH (12:00)
[2017-02-03] MEDS: Acetaminophen 325 MG TABLET PO PRN (01:30)
[2017-02-03] MEDS: Furosemide 40 MG TABLET PO SCH (08:00)
[2017-02-03] MEDS: Aspirin 81 MG TAB.CHEW PO SCH (08:02)
[2017-02-03] MEDS: *HR* Rivaroxaban 15 MG TABLET PO SCH (08:02)
[2017-02-03] MEDS: Methocarbamol 500 MG TABLET PO SCH ×3 (08:02→20:21)
[2017-02-03] MEDS: Famotidine 20 MG TABLET PO SCH ×2 (08:03→20:21)
[2017-02-03] MEDS: Pregabalin 50 MG CAPSULE PO SCH ×2 (08:03→20:21)
[2017-02-03] MEDS: Insulin LISPRO 300 UNITS/3 ML VIAL SQ SCH ×4 (08:03→20:21)
[2017-02-03] MEDS: ONGLYZA 5MG PO SCH (15:06)
--- NOTE | 2017-02-03 15:35 | Internal Med Progress Note ---
Date of Encounter: 02/03/17 Time of Encounter: 15:25 - Assessment and plan (1) Chronic atrial fibrillation Current Visit: No Status: Chronic Assessment and plan: January 31. Continue Xarelto (2) Diabetes mellitus Current Visit: No Status: Chronic Assessment and plan: January 31. Hemoglobin A1c was 6.0% on 11/22/2016. Continue Onglyza and Accu- Cheks with SSI. February 02. Blood sugars are satisfactory. Continue Onglyza and Accu-Cheks with SSI Qualifiers: Diabetes mellitus type: type 2 Diabetes mellitus complication status: with kidney complications Diabetes mellitus complication detail: with chronic kidney disease Diabetes mellitus residential insulin use: without intermediate project manager use Chronic kidney disease stage: stage 3 (moderate) Qualified Code(s): E11.22 - Type 2 diabetes mellitus with diabetic chronic kidney disease; N18.3 - Chronic kidney disease, stage 3 (moderate) (3) Inability to walk Current Visit: No Status: Acute Assessment and plan: January 31. Continue PT and OT. February 02. She is improving in therapy. Anticipate discharge later this week. February 03. She states she has improved enough that she wishes to be discharged home. Social service has arranged for home health services etc. to be resumed February 04. Anticipate discharge home tomorrow morning. - Subjective Interval history: January 31. She was hospitalized in acute care January 24- with bronchitis. Viral respiratory panel was negative. Pro-calcitonin was less than 0.07. Levaquin and prednisone were given during acute care stay but not continued into swing bed. She made good progress in therapy during acute care and it was felt she would benefit from ongoing therapy in swing bed. She has no new complaints today. February 02. She has no new complaints and feels well February 03. She states she has improved further and wishes discharged home - Constitutional Vitals: Temp Pulse Resp BP Pulse Ox 97.3 F L 74 18 118/67 93 L 02/03/17 07:41 02/03/17 14:13 02/03/17 14:13 02/03/17 14:13 02/03/17 14:13 Exam: She is resting comfortably in bed and appears in no acute distress. Her affect is bright and cheerful. I reviewed her medications and lab results. Consult Discharge Plan - Plan Referrals: Simeon Davenport DO [Primary Care Provider] - 1 week
[2017-02-04 06:22] VITALS: BP 117/66
[2017-02-04] MEDS: Aspirin 81 MG TAB.CHEW PO SCH (09:10)
[2017-02-04] MEDS: Insulin LISPRO 300 UNITS/3 ML VIAL SQ SCH (09:10)
[2017-02-04] MEDS: Furosemide 40 MG TABLET PO SCH (09:11)
[2017-02-04] MEDS: *HR* Rivaroxaban 15 MG TABLET PO SCH (09:11)
[2017-02-04] MEDS: Pregabalin 50 MG CAPSULE PO SCH (09:11)
[2017-02-04] MEDS: ONGLYZA 5MG PO SCH (09:11)
[2017-02-04] MEDS: Methocarbamol 500 MG TABLET PO SCH (09:11)
[2017-02-04] MEDS: Famotidine 20 MG TABLET PO SCH (09:11)
--- NOTE | 2017-02-04 09:52 | Discharge Summary ---
Date of Encounter: 02/04/17 Time of Encounter: 09:35 - Discharge Diagnosis (1) Chronic atrial fibrillation Priority: Primary Status: Chronic (2) Diabetes mellitus Priority: Secondary Status: Chronic Qualifiers: Diabetes mellitus type: type 2 Diabetes mellitus complication status: with kidney complications Diabetes mellitus complication detail: with chronic kidney disease Diabetes mellitus manager intermediate insulin use: without manager intermediate use Chronic kidney disease stage: stage 3 (moderate) Qualified Code(s): E11.22 - Type 2 diabetes mellitus with diabetic chronic kidney disease; N18.3 - Chronic kidney disease, stage 3 (moderate) (3) Inability to walk Priority: Secondary Status: Acute - Discharge Medications Home Medications: Aspirin 81 mg PO DAILY tab.chew 06/24/15 [Rx] Carvedilol [Coreg] 25 mg PO BIDAC tablet 06/24/15 [Rx] Furosemide [Lasix] 40 mg PO DAILY #30 tablet 06/24/15 [Rx] Isosorbide DInitrate [Isordil] 30 mg PO BID tablet 06/24/15 [Rx] Nitroglycerin 0.4 mg SL Q5MIN PRN #15 tab.subl 06/24/15 [Rx] Ranitidine HCl [Zantac] 150 mg PO BID #30 tablet 06/24/15 [Rx] Saxagliptin HCl [Onglyza] 5 mg PO DAILY #30 tablet 06/24/15 [Rx] Sertraline [Zoloft] 50 mg PO DAILY tablet 06/24/15 [Rx] Acetaminophen [Tylenol] 650 mg PO QID PRN 01/12/17 [History] Amlodipine Besylate 10 mg PO DAILY 01/12/17 [History] Dicyclomine [Bentyl] 10 mg PO QID PRN 01/12/17 [History] Duloxetine HCl [Cymbalta] 60 mg PO DAILY 01/12/17 [History] Methocarbamol [Robaxin-750] 750 mg PO TID 01/12/17 [History] Naproxen Sodium [Aleve] 220 mg PO BID PRN 01/12/17 [History] Pantoprazole Sodium [Protonix] 40 mg PO DAILY 01/12/17 [History] Pravastatin Sodium [Pravachol] 40 mg PO HS 01/12/17 [History] Pregabalin [Lyrica] 100 mg PO BID 01/12/17 [History] Rivaroxaban [Xarelto] 15 mg PO DAILY 01/12/17 [History] Albuterol Neb [Proventil Neb] 2.5 mg IH Q2H PRN #0 inhsol 01/30/17 [Rx] Allergies/Adverse Reactions: Allergies Penicillins [PCN] Allergy (Severe, Verified 01/24/17 12:00) See Comments reaction documented in 566 diphenhydramine Allergy (Verified 01/24/17 12:00) See Comments reaction documented in 566 Date of admission: 01/30/17 12:05 Primary care physician: Marissa Madden CNP Consults: 01/30/17 13:37 Consult to Occupational Therapy [CONS] Routine Comment: evaluate, develop, and implement plan of care. Consult to Physical Therapy [CONS] Routine Comment: evaluate,develop, and implement plan of care Consult to System Safety Manager [CONS] Routine Reason for SW Consult: Discharge planning - Patient Status Disposition: Home Health Service Overall status at discharge: patient is progressing back to baseline - Discharge Instructions Follow Up With: Marissa Madden CNP [Advanced Practice Nurse] - 1 week - Diet and Activity Activity: ambulate only with your walker, as per physical therapy Diet: diabetic diet Hospital course: Ms. Hernandez is a 66 year old female who was hospitalized in acute care January 24- with bronchitis. Viral respiratory panel was negative. Pro-calcitonin was less than 0.07. Levaquin and prednisone were given during acute care stay but not continued into swing bed. She made good progress in therapy during acute care and it was felt she would benefit from ongoing therapy in swing bed. She had ongoing therapy in swing bed and made additional progress in her ambulatory ability. It was felt she would benefit from a front wheeled walker and tub transfer bench at time of discharge and these were ordered. Home health services will also be ordered. No complications and she wished to be discharged home February 04. She will follow with her PCP Marissa Prescott CNP in 1 week. - Time Spent with Patient Total time spent providing and/or coordinating discharge services: - Constitutional Vitals: Temp Pulse Resp BP Pulse Ox 97.6 F 77 18 117/66 95 02/04/17 06:20 02/04/17 06:20 02/04/17 06:20 02/04/17 06:20 02/04/17 06:20
--- NOTE | 2017-02-04 09:58 | Physician Discharge Referral ---
Home Health/Hosp Referral Info Transfer to: Home Health Attending Provider: Eliezer Provider in Charge Post Discharge: PCP (Marissa Madden CNP) - Diagnosis (1) Chronic atrial fibrillation Priority: Primary Status: Chronic (2) Diabetes mellitus Priority: Secondary Status: Chronic (3) Inability to walk Priority: Secondary Status: Acute - Respiratory Orders Smoking Cessation: Smoking cessation has been advised. For more information, call the [place] Tobacco Quit Line at 0-276-QXZZ-NOW. - Diet/Nutrition Diet/Nutrition Orders: No Concentrated Sweets - Activity Activity Orders: Walker - Services Needed Following services are medically necessary services: Nursing, Home Health Aide, Physical Therapy, Occupational Therapy - Transfer Medications Home Medications: Aspirin 81 mg PO DAILY tab.chew 06/24/15 [Rx] Carvedilol [Coreg] 25 mg PO BIDAC tablet 06/24/15 [Rx] Furosemide [Lasix] 40 mg PO DAILY #30 tablet 06/24/15 [Rx] Isosorbide DInitrate [Isordil] 30 mg PO BID tablet 06/24/15 [Rx] Nitroglycerin 0.4 mg SL Q5MIN PRN #15 tab.subl 06/24/15 [Rx] Ranitidine HCl [Zantac] 150 mg PO BID #30 tablet 06/24/15 [Rx] Saxagliptin HCl [Onglyza] 5 mg PO DAILY #30 tablet 06/24/15 [Rx] Sertraline [Zoloft] 50 mg PO DAILY tablet 06/24/15 [Rx] Acetaminophen [Tylenol] 650 mg PO QID PRN 01/12/17 [History] Amlodipine Besylate 10 mg PO DAILY 01/12/17 [History] Dicyclomine [Bentyl] 10 mg PO QID PRN 01/12/17 [History] Duloxetine HCl [Cymbalta] 60 mg PO DAILY 01/12/17 [History] Methocarbamol [Robaxin-750] 750 mg PO TID 01/12/17 [History] Naproxen Sodium [Aleve] 220 mg PO BID PRN 01/12/17 [History] Pantoprazole Sodium [Protonix] 40 mg PO DAILY 01/12/17 [History] Pravastatin Sodium [Pravachol] 40 mg PO HS 01/12/17 [History] Pregabalin [Lyrica] 100 mg PO BID 02/19/17 [History] Rivaroxaban [Xarelto] 15 mg PO DAILY 01/12/17 [History] Albuterol Neb [Proventil Neb] 2.5 mg IH Q2H PRN #0 inhsol 01/30/17 [Rx] Allergies/Adverse Reactions: Allergies Penicillins [PCN] Allergy (Severe, Verified 01/24/17 12:00) See Comments reaction documented in 566 diphenhydramine Allergy (Verified 01/24/17 12:00) See Comments reaction documented in 566 Certification: Further, I certify that my clinical findings support that this patient is homebound (i.e. absences from home require considerable and taxing effort and are for medical reasons or adventist services or infrequently or short duration when for other reasons) because: Homebound Reason: Leaving home requires considerable and taxing effort due to condition (Impaired walking ability) Attestation: My signature below is to certify that this patient is under my care and that I, or nurse practitioner, or a physician's assistant food service manager working with me, has a face-to -face encounter with this patient.
== END 2017-02-04 10:00 | disposition home health service (06) ==
LOC: INPPIK 12:05
PROVIDERS: ADMIT Internal Medicine; ATTEND Internal Medicine

== ENCOUNTER 2017-05-17 09:26 | Observation (INO) ==
[2017-05-17] MEDS ORDERED: 0.9 % Sodium Chloride 1,000 ML IVC ONE (09:31)
[2017-05-17] MEDS ORDERED: Acetaminophen 325 MG TABLET PO ONE ×2 (09:31→09:42)
--- NOTE | 2017-05-17 09:33 | Emergency Department Note ---
Disposition Clinical Impression: Gastroenteritis, Near syncope, Weakness, Postural dizziness with near syncope Disposition: Admitted As Inpatient Condition: Fair Referrals: Marissa Madden CNP [Primary Care Provider] - Forms: Work/School Release, ED Satisfaction Letter Weakness HPI - General Chief complaint: ED General Medical Stated complaint: flu like symptoms Time Seen by Provider: 05/17/17 09:31 Source: patient, EMS Mode of arrival: EMS Limitations: no limitations Nursing Notes Reviewed: Yes Vital Signs Reviewed: Yes - History of Present Illness HPI Narrative: Patient reports that she has had "flu symptoms" for 3-4 days. She indicates she is hand generalized weakness that has been progressive. She has been getting dizzy with standing and this has prompted her calling EMS to be brought to the emergency department. She reports nausea without vomiting and subsequent decrease oral intake. She does report diarrhea without blood or mucus. She denies any abdominal pain or cramping. She has been having some urinary frequency without dysuria or blood. She denies chest pain or cough but has had some mild dyspnea. She denies any ill exposures or concern of food borne illness. She did develop a headache just prior to arrival which she states was "because of the bouncing in the squad". She states her headache is now gone now that she is at rest in the emergency department. Pt Subjective Complaint: generalized weakness/fatigue Onset (ago): day(s) (4) Duration: gradually worsening Location: generalized Migration: none Pain Severity: none Pain Scale: 0 Improves with: none Worsens with: movement, exertion Associated symptoms: Reports: fever/chills (Chills), loss of appetite, nausea/ vomiting (Nausea only, has had diarrhea, no abdominal pain), shortness of breath. Denies: chest pain, confusion, dark stools, diaphoresis, dysuria ( Increased frequency of urination), easy bruising, headaches, myalgias, rash, syncope (History of postural dizziness) - Related Data Home Medications Medication Instructions Recorded Confirmed Acetaminophen [Tylenol] 650 mg PO QID PRN 01/12/17 05/17/17 Amlodipine Besylate 10 mg PO DAILY 01/12/17 05/17/17 Dicyclomine [Bentyl] 10 mg PO QID PRN 01/12/17 05/17/17 Duloxetine HCl [Cymbalta] 60 mg PO DAILY 01/12/17 05/17/17 Methocarbamol [Robaxin-750] 750 mg PO TID 01/12/17 05/17/17 Naproxen Sodium [Aleve] 220 mg PO BID PRN 01/12/17 05/17/17 Pantoprazole Sodium [Protonix] 40 mg PO DAILY 01/12/17 05/17/17 Pravastatin Sodium [Pravachol] 40 mg PO HS 01/12/17 05/17/17 Pregabalin [Lyrica] 100 mg PO BID 01/12/17 05/17/17 Rivaroxaban [Xarelto] 15 mg PO DAILY 01/12/17 05/17/17 Lisinopril [Zestril] 40 mg PO DAILY 05/17/17 05/17/17 Saxagliptin HCl [Onglyza] 5 mg PO 05/17/17 Previous Rx's Medication Instructions Recorded Aspirin 81 mg PO DAILY tab.chew 06/24/15 Carvedilol [Coreg] 25 mg PO BIDAC tablet 06/24/15 Furosemide [Lasix] 40 mg PO DAILY #30 tablet 06/24/15 Isosorbide DInitrate [Isordil] 30 mg PO BID tablet 06/24/15 Nitroglycerin 0.4 mg SL Q5MIN PRN #15 tab.subl 06/24/15 Ranitidine HCl [Zantac] 150 mg PO BID #30 tablet 06/24/15 Saxagliptin HCl [Onglyza] 5 mg PO DAILY #30 tablet 06/24/15 Sertraline [Zoloft] 50 mg PO DAILY tablet 06/24/15 Albuterol Neb [Proventil Neb] 2.5 mg IH Q2H PRN #0 inhsol 01/30/17 Allergies Allergy/AdvReac Type Severity Reaction Status Date / Time Penicillins [PCN] Allergy Severe See Verified 01/24/17 12:00 Comments diphenhydramine Allergy See Verified 01/24/17 12:00 Comments All systems ED: reviewed and negative except as stated. Past Medical History - Past Medical History Attestation: Yes The following information was validated with the patient. Source: patient, old records reviewed, nursing notes reviewed Medical history: Reports: asthma, atrial fibrillation, CHF, COPD, CVA, diabetes , hyperlipidemia, hypertension, kidney stones Surgical history: Reports: angioplasty/stent, cholecystectomy, herniorrhaphy, ureteral stent Psychiatric history: Reports: anxiety, depression - Social History Smoking Status: Never smoker Smokeless Tobacco Status: No Alcohol use: Reports: none Drug use: Reports: none Physical Exam - General Limitations: no limitations General appearance: alert, in no apparent distress - Head Head exam: atraumatic, normocephalic, normal inspection - Eye Eye exam: Present: normal appearance, PERRL, EOMI. Absent: scleral icterus, conjunctival injection - ENT ENT exam: normal exam, normal oropharynx, mucous membranes moist - Neck Neck exam: Present: normal inspection, full ROM, trachea midline. Absent: meningismus, lymphadenopathy - Chest Chest inspection: Present: normal inspection, symmetric chest wall rise - Respiratory Respiratory exam: Present: normal lung sounds bilaterally. Absent: respiratory distress, wheezes, prolonged expiratory phase - Cardiovascular Cardiovascular exam: Present: regular rate, normal rhythm, normal heart sounds. Absent: tachycardia - Abdominal Exam Abdominal exam: Present: soft, Non-Tender. Absent: tenderness, distention, guarding, rebound, rigidity Abdominal tenderness: Absent: suprapubic - Extremities Exam Extremities exam: Present: normal inspection, full ROM, normal capillary refill. Absent: tenderness, pedal edema, calf tenderness - Expanded Lower Extremity Exam Neurovascular/Tendon exam: Present: normal capillary refill. Absent: motor deficit, sensory deficit, tendon deficit Gait: not tested/not observed - Back Exam Back exam: Present: normal inspection, full ROM, CVA tenderness (R) (Mild), CVA tenderness (L) (Mild). Absent: tenderness, paraspinal tenderness, vertebral tenderness, straight leg raise (R), straight leg raise (L) - Neurological Exam Neurological exam: Present: alert, oriented X3. Absent: motor sensory deficit - Psychiatric Psychiatric exam: Present: normal affect, normal mood - Skin Skin exam: Present: warm, dry, intact, normal color. Absent: rash, diaphoresis , pallor Course Course Narrative: 1040: Care discussed with the patient and Dr. Mathew. Verbal orders have been obtained for this patient's observation and continued hydration. Vital Signs Temperature 98 F 05/17/17 09:29 Pulse Rate 79 05/17/17 09:29 Respiratory Rate 18 05/17/17 09:29 Blood Pressure 114/58 05/17/17 09:29 O2 Sat by Pulse Oximetry 98 05/17/17 09:29 Temperature 98 F 05/17/17 09:32 Pulse Rate 88 05/17/17 10:34 Respiratory Rate 18 05/17/17 10:34 Blood Pressure 116/76 05/17/17 10:34 O2 Sat by Pulse Oximetry 98 05/17/17 10:34 Oxygen Delivery Oxygen Delivery Room Air Weakness - Differential Diagnosis Differential Diagnosis: Likely: anemia, hypoglycemia, sepsis/infection, dehydration, metabolic - Medical Records Medical records reviewed: Yes I reviewed the patient's medical records. - Lab Data Lab results reviewed: Yes I reviewed the patient's lab results. Result diagrams: 05/17/17 09:55 05/17/17 09:55 Lab Results 05/17/17 05/17/17 05/17/17 Range/Units 09:48 09:55 09:55 WBC 7.7 (4.3-11.1) K/mcL RBC 4.24 (3.82-4.97) M/mcL Hgb 12.2 (11.5-15.4) g/dL Hct 37.6 (35.3-44.9) % MCV 88.7 (83.0-100.0) fL MCH 28.8 (28.0-33.3) pg MCHC 32.4 (31.6-35.5) g/dL RDW 13.8 (11.5-14.5) % Plt Count 202 (140-400) K/mcL MPV 11.4 (9.4-12.4) fL Immature Gran % 0.3 (0-4) % Seg Neutrophils % 71.6 % Lymphocytes % 19.5 % Monocytes % 6.3 % Eosinophils % 1.9 % Basophils % 0.4 % Neutrophils # 5.5 (1.6-8.9) K/mcL Lymphocytes # 1.5 (0.6-4.6) K/mcL Monocytes # 0.5 (0.0-1.3) K/mcL Eosinophils # 0.2 (0.0-0.6) K/mcL Basophils # 0.0 (0.0-0.2) K/mcL VBG Lactic Acid (0.5-2.2) mmol/L Sodium 142 (136-145) mEq/L Potassium 4.0 (3.5-4.5) mEq/L Chloride 103 (98-109) mEq/L Carbon Dioxide 26 (19-29) mEq/L BUN 18 (7-20) mg/dL Creatinine 1.19 H (0.57-1.11) mg/dL Est GFR ( Amer) 55 L (> 60) Est GFR (Non-Af Amer) 45 L (> 60) BUN/Creatinine Ratio 15 (6-26) Glucose 145 H (70-99) mg/dL Calculated Osmolality 298 (280-300) Calcium 9.3 (8.6-10.8) mg/dL Total Bilirubin 0.5 (0.2-1.2) mg/dL AST 15 (5-34) Units/L ALT 9 (0-55) Units/L Alkaline Phosphatase 112 (38-126) Units/L Troponin I (0-0.03) ng/mL Serum Total Protein 7.3 (6.0-8.3) g/dL Albumin 3.3 L (3.5-5.0) g/dL Globulin 4.0 H (2.4-3.5) g/dL Albumin/Globulin Ratio 0.8 L (1.1-2.2) Urine Color Yellow (Yellow) Urine Clarity Clear (Clear) Urine pH 5.5 (5.0-8.0) pH Units Ur Specific [place] 1.015 (1.010-1.025) Urine Protein Negative (Neg-Trace) mg/dL Urine Glucose (UA) Normal (Normal) mg/dL Urine Ketones Negative (Negative) mg/dL Urine Blood Negative (Negative) Urine Nitrite Negative (Negative) Urine Bilirubin Negative (Negative) Urine Urobilinogen Normal (Normal) mg/dL Ur Leukocyte Esterase Negative (Negative) Ur Culture Indicated? NO (NO) 05/17/17 05/17/17 Range/Units 09:55 09:55 WBC (4.3-11.1) K/mcL RBC (3.82-4.97) M/mcL Hgb (11.5-15.4) g/dL Hct (35.3-44.9) % MCV (83.0-100.0) fL MCH (28.0-33.3) pg MCHC (31.6-35.5) g/dL RDW (11.5-14.5) % Plt Count (140-400) K/mcL MPV (9.4-12.4) fL Immature Gran % (0-4) % Seg Neutrophils % % Lymphocytes % % Monocytes % % Eosinophils % % Basophils % % Neutrophils # (1.6-8.9) K/mcL Lymphocytes # (0.6-4.6) K/mcL Monocytes # (0.0-1.3) K/mcL Eosinophils # (0.0-0.6) K/mcL Basophils # (0.0-0.2) K/mcL VBG Lactic Acid 1.2 (0.5-2.2) mmol/L Sodium (136-145) mEq/L Potassium (3.5-4.5) mEq/L Chloride (98-109) mEq/L Carbon Dioxide (19-29) mEq/L BUN (7-20) mg/dL Creatinine (0.57-1.11) mg/dL Est GFR ( Amer) (> 60) Est GFR (Non-Af Amer) (> 60) BUN/Creatinine Ratio (6-26) Glucose (70-99) mg/dL Calculated Osmolality (280-300) Calcium (8.6-10.8) mg/dL Total Bilirubin (0.2-1.2) mg/dL AST (5-34) Units/L ALT (0-55) Units/L Alkaline Phosphatase (38-126) Units/L Troponin I 0.03 (0-0.03) ng/mL Serum Total Protein (6.0-8.3) g/dL Albumin (3.5-5.0) g/dL Globulin (2.4-3.5) g/dL Albumin/Globulin Ratio (1.1-2.2) Urine Color (Yellow) Urine Clarity (Clear) Urine pH (5.0-8.0) pH Units Ur Specific [place] (1.010-1.025) Urine Protein (Neg-Trace) mg/dL Urine Glucose (UA) (Normal) mg/dL Urine Ketones (Negative) mg/dL Urine Blood (Negative) Urine Nitrite (Negative) Urine Bilirubin (Negative) Urine Urobilinogen (Normal) mg/dL Ur Leukocyte Esterase (Negative) Ur Culture Indicated? (NO) - Radiology Data Radiology results reviewed: Yes I reviewed the patient's radiology results. Single view chest x-ray is performed. This does not demonstrate evidence for infiltrate, effusion, pneumothorax, foreign body or heart failure. The cardiac silhouette is normal. I do not see abnormality to the osseous structures of the chest. This is on my interpretation. Impressions Chest X-Ray 05/17/17 09:31 IMPRESSION: Stable cardiomegaly. No evidence of acute cardiopulmonary process. D/ / Emani Corbin MD / Emani Corbin MD Interpreting Provider: Emani Corbin MD - EKG Data EKG attestation: Yes I reviewed and interpreted this EKG. EKG shows normal: intervals, QRS complexes, ST-T waves Rate: normal Rhythm: A.Fib [place]/QRS: left axis deviation Interpretation: no acute changes, unchanged when compared to prior tracing (date )
[2017-05-17 10:10] LABS: Basophils % 0.4 %; Eosinophils # 0.2 K/mcL (0.0-0.6); Eosinophils % 1.9 %; Hematocrit 37.6 % (35.3-44.9); Hemoglobin 12.2 g/dL (11.5-15.4); Immature Granulocytes % 0.3 % (0-4); Lymphocytes # 1.5 K/mcL (0.6-4.6); Lymphocytes % 19.5 %; Mean Corpuscular HGB Conc 32.4 g/dL (31.6-35.5); Mean Corpuscular Hemoglobin 28.8 pg (28.0-33.3); Mean Corpuscular Volume 88.7 fL (83.0-100.0); Mean Platelet Volume 11.4 fL (9.4-12.4); Monocytes # 0.5 K/mcL (0.0-1.3); Monocytes % 6.3 %; Neutrophils # 5.5 K/mcL (1.6-8.9); Platelet Count 202 K/mcL (140-400); Red Blood Count 4.24 M/mcL (3.82-4.97); Red Cell Distribution Width 13.8 % (11.5-14.5); Segmented Neutrophils % 71.6 %
[2017-05-17 10:28] LABS: Albumin 3.3 g/dL (3.5-5.0); Albumin/Globulin Ratio 0.8 (1.1-2.2); Bilirubin,Total 0.5 mg/dL (0.2-1.2); Calcium 9.3 mg/dL (8.6-10.8); Total Protein 7.3 g/dL (6.0-8.3)
[2017-05-17 10:37] LABS: Bilirubin,Urine Negative (Negative); Blood,Urine Negative (Negative); Clarity,Urine Clear (Clear); Color,Urine Yellow (Yellow); Glucose,Urine (UA) Normal (Normal); Ketones,Urine Negative (Negative); Leukocyte Esterase,Urine Negative (Negative); Nitrite,Urine Negative (Negative); PH,Urine 5.5 pH Units (5.0-8.0); Protein,Urine Negative (Neg-Trace); Specific Gravity,Urine 1.015 (1.010-1.025); Urobilinogen,Urine Normal (Normal)
[2017-05-17] MEDS ORDERED: Ondansetron 4 MG/2 ML VIAL IVP ONE (10:42)
[2017-05-17] MEDS ORDERED: 0.9 % Sodium Chloride 1,000 ML IVC SCH (10:45)
[2017-05-17] MEDS ORDERED: Acetaminophen 325 MG TABLET PO PRN (11:51)
[2017-05-17] MEDS ORDERED: Albuterol 2.5 MG/3 ML NEBULIZER IH PRN (11:51)
[2017-05-17] MEDS ORDERED: Ondansetron 4 MG/2 ML VIAL IVP PRN (11:51)
[2017-05-17] MEDS ORDERED: Nitroglycerin 0.4 MG TAB.SUBL SL PRN (11:51)
[2017-05-17] MEDS ORDERED: Naloxone 0.4 MG/ML INJ IVP PRN (11:51)
[2017-05-17] MEDS ORDERED: MOM Conc 10 ML UD.LIQ PO PRN (11:51)
[2017-05-17] MEDS: 0.9 % Sodium Chloride 1,000 ML IVC SCH ×2 (12:23→19:26)
[2017-05-17] MEDS: Methocarbamol 500 MG TABLET PO SCH ×2 (15:51→21:10)
[2017-05-17] MEDS: Famotidine 20 MG TABLET PO SCH (21:09)
[2017-05-17] MEDS: Pregabalin 50 MG CAPSULE PO SCH (21:10)
[2017-05-17] MEDS ORDERED: *HR* Acetaminophen w/Cod 300-30 mg 1 TAB TABLET PO PRN (22:01)
--- NOTE | 2017-05-17 23:11 | Internal Med History&Physical ---
Date of Encounter: 05/17/17 Time of Encounter: 23:05 Assessment and Plan (1) Gastroenteritis Current visit: Yes Status: Acute Not being able to tolerate foods give IV fluids and liquids as tolerated (2) Postural dizziness with near syncope Current visit: Yes Status: Acute Dizzy when she stands up prior related to somewhat dehydration from gastritis (3) Near syncope Current visit: Yes Status: Acute Probably some dehydration (4) Weakness Current visit: Yes Status: Acute Generally weak with history of right hemiplegia (5) Diabetes mellitus Current visit: No Status: Chronic Reports being hypoglycemic home who can check a hemoglobin A1c and Accu-Cheks low sliding-scale Qualifiers: Diabetes mellitus type: type 2 Diabetes mellitus complication status: with kidney complications Diabetes mellitus complication detail: with chronic kidney disease Diabetes mellitus medical assistant instructor insulin use: without medical assistant instructor use Chronic kidney disease stage: stage 3 (moderate) Qualified Code(s): E11.22 - Type 2 diabetes mellitus with diabetic chronic kidney disease; N18.3 - Chronic kidney disease, stage 3 (moderate) (6) Chronic atrial fibrillation Current visit: Yes Status: Chronic Continue the Coumadin and following up labs PT/INR Internal Medicine - H&P: HPI Chief complaint: Flulike symptoms Admitted From: Home Plans for Post Hospital Care: Home History of present illness: Ms. Hernandez is a 66 year old female resident emergency room with flulike symptoms for last 3-4 days. She has been getting more weak and fatigued and tired. Having nausea and belching a lot. She reports diarrhea without blood and no vomiting abdominal cramping. She reports having some chest discomfort when she coughs as sharp. She has a little shortness of breath. She has a little pain with urination. She reports fevers and chills weakness fatigue headache muscle aches and spasms. Rest of review of systems is negative She generally stressed out because her sister this last week of drug and alcohol complications. She reports going on a diet to lose weight she is skipping meals becoming hypoglycemic. She is reports diet-controlled diabetes point. Listen to her details, answer questions, addressed her concerns. Past Med Surg Social Fam HX - Past Medical History Medical history: asthma, atrial fibrillation, CHF, COPD, CVA (Left hemiplegia), diabetes, hyperlipidemia, hypertension, kidney stones, other (Morbid obesity) Psychiatric history: anxiety, depression - Past Surgical History Surgical History: angioplasty/stent, cataract (Bilateral), cholecystectomy, herniorrhaphy, ureteral stent, other (Thyroid biopsy benign, colonoscopy normal) - Social History Smoking Status: Never smoker Smokeless Tobacco Status: No Alcohol use: none Drug use: other (3 cups of decaf coffee a day, Because caffeine is a stimulant and makes one feel a boost of energy by tapping into ones reserve energy, it can lead to anxiety and panic attacks. When used routiely, it interferes with deep sleep, so the reserve energy isn't being replaced effectively which leads to tiredness, depression, higher risk of infection. I recommend patients gives up daily use.) Current living situation: Home (With assistance) Activity Level: Uses cane/walker Internal Medicine - H&P: Meds Aspirin 81 mg PO DAILY tab.chew 06/24/15 [Rx] Carvedilol [Coreg] 25 mg PO BIDAC tablet 06/24/15 [Rx] Furosemide [Lasix] 40 mg PO DAILY #30 tablet 06/24/15 [Rx] Isosorbide DInitrate [Isordil] 30 mg PO BID tablet 06/24/15 [Rx] Nitroglycerin 0.4 mg SL Q5MIN PRN #15 tab.subl 06/24/15 [Rx] Ranitidine HCl [Zantac] 150 mg PO BID #30 tablet 06/24/15 [Rx] Saxagliptin HCl [Onglyza] 5 mg PO DAILY #30 tablet 06/24/15 [Rx] Sertraline [Zoloft] 50 mg PO DAILY tablet 06/24/15 [Rx] Acetaminophen [Tylenol] 650 mg PO QID PRN 01/12/17 [History] Amlodipine Besylate 10 mg PO DAILY 01/12/17 [History] Dicyclomine [Bentyl] 10 mg PO QID PRN 01/12/17 [History] Duloxetine HCl [Cymbalta] 60 mg PO DAILY 01/12/17 [History] Methocarbamol [Robaxin-750] 750 mg PO TID 01/12/17 [History] Naproxen Sodium [Aleve] 220 mg PO BID PRN 01/12/17 [History] Pantoprazole Sodium [Protonix] 40 mg PO DAILY 01/12/17 [History] Pravastatin Sodium [Pravachol] 40 mg PO HS 01/12/17 [History] Pregabalin [Lyrica] 100 mg PO BID 01/12/17 [History] Rivaroxaban [Xarelto] 15 mg PO DAILY 01/12/17 [History] Albuterol Neb [Proventil Neb] 2.5 mg IH Q2H PRN #0 inhsol 01/30/17 [Rx] Lisinopril [Zestril] 40 mg PO DAILY 05/17/17 [History] Saxagliptin HCl [Onglyza] 5 mg PO 05/17/17 [History] Allergies Penicillins [PCN] Allergy (Severe, Verified 01/24/17 12:00) See Comments reaction documented in 566 diphenhydramine Allergy (Verified 01/24/17 12:00) See Comments reaction documented in 566 All Systems PM: A 10-system review of systems was performed and is negative for pertinent findings except as documented above in the HPI. - Constitutional Vitals: Temp Pulse Resp BP Pulse Ox 97.6 F 70 18 120/70 93 05/17/17 18:20 05/17/17 18:20 05/17/17 18:20 05/17/17 18:20 05/17/17 18:20 - Head Head exam: Present: atraumatic, normocephalic - Eye Eye exam: Present: PERRL, conjuntiva pink, sclera anicteric Pupils: Present: PERRL - Neck Neck exam general surgery: Present: supple, trachea midline. Absent: lymphadenopathy - Respiratory Respiratory exam: Present: CTAB. Absent: accessory muscle use, rales, rhonchi, wheezes - Cardiovascular Cardiovascular exam: Present: RRR, +S1, +S2. Absent: diastolic murmur, gallop, rubs, systolic murmur - GI/Abdominal GI/Abdominal exam: Present: normal bowel sounds, soft, no peritoneal signs. Absent: distended, tenderness - Extremities Exam Extremities exam: Present: warm. Absent: calf tenderness, cyanotic, pedal edema Additional comments: Left-sided weakness about 4-4+ out of 5, left hand clenched. Right lower extremity about 4+ out 5 strength - Neurological Exam Neurological exam: Present: CN II-XII intact, oriented X3. Absent: facial droop , speech deficit - Psychiatric Psychiatric exam: Present: depressed - Skin Skin exam: Present: dry, intact Internal Med - H&P Results - Labs CBC & Chem 7: 05/17/17 09:55 05/17/17 09:55
[2017-05-18] MEDS: 0.9 % Sodium Chloride 1,000 ML IVC SCH (03:23)
[2017-05-18 05:01] LABS: Basophils % 0.5 %; Eosinophils # 0.2 K/mcL (0.0-0.6); Eosinophils % 3.3 %; Hematocrit 33.6 % (35.3-44.9); Hemoglobin 10.9 g/dL (11.5-15.4); Immature Granulocytes % 0.3 % (0-4); Lymphocytes # 1.7 K/mcL (0.6-4.6); Lymphocytes % 28.6 %; Mean Corpuscular HGB Conc 32.4 g/dL (31.6-35.5); Mean Corpuscular Hemoglobin 29.1 pg (28.0-33.3); Mean Corpuscular Volume 89.6 fL (83.0-100.0); Mean Platelet Volume 11.2 fL (9.4-12.4); Monocytes # 0.5 K/mcL (0.0-1.3); Monocytes % 8.9 %; Neutrophils # 3.5 K/mcL (1.6-8.9); Platelet Count 172 K/mcL (140-400); Red Blood Count 3.75 M/mcL (3.82-4.97); Red Cell Distribution Width 13.6 % (11.5-14.5); Segmented Neutrophils % 58.4 %
[2017-05-18 05:11] LABS: INR 1.2; Prothrombin Time 13.3 Seconds (9.4-12.1)
[2017-05-18 05:20] LABS: BUN/Creatinine Ratio 14 (6-26); Blood Urea Nitrogen 12 mg/dL (7-20); Calcium 8.7 mg/dL (8.6-10.8); Carbon Dioxide 26 mEq/L (19-29); Chloride 109 mEq/L (98-109); Glucose 90 mg/dL (70-99); Osmolality,Calculated 299 (280-300); Potassium 3.5 mEq/L (3.5-4.5); Sodium 145 mEq/L (136-145); eGFR For African Americans > 60 (> 60); eGFR For Non-African Americans > 60 (> 60)
[2017-05-18] MEDS ORDERED: Aspirin 81 MG TAB.CHEW PO SCH (09:00)
[2017-05-18] MEDS ORDERED: amLODIPine 5 MG TABLET PO SCH (09:00)
[2017-05-18] MEDS ORDERED: Lisinopril 20 MG TABLET PO SCH (09:00)
[2017-05-18] MEDS ORDERED: *HR* Rivaroxaban 10 MG TABLET PO SCH (09:00)
[2017-05-18] MEDS ORDERED: (Saxagliptin Hcl [Onglyza] 5 MG) PO SCH (09:00)
[2017-05-18] MEDS: Pregabalin 50 MG CAPSULE PO SCH (09:54)
[2017-05-18] MEDS: Methocarbamol 500 MG TABLET PO SCH (09:56)
[2017-05-18] MEDS: Famotidine 20 MG TABLET PO SCH (09:56)
[2017-05-18 11:21] VITALS: BP 100/52
--- NOTE | 2017-05-18 11:43 | Discharge Summary ---
Date of Encounter: 05/18/17 Time of Encounter: 11:40 - Discharge Diagnosis (1) Gastroenteritis Priority: Primary Status: Acute Comments: Nausea improved to the point of tolerating fluids and urine output. She feels stable going home. She probably has home health aide Meals on Wheels she is a walker at home (2) Postural dizziness with near syncope Priority: Primary Status: Acute Comments: Dizziness is improved (3) Near syncope Priority: Primary Status: Acute Comments: No more lightheadedness or chest pain or shortness of breath she is on home oxygen (4) Weakness Priority: Secondary Status: Acute Comments: He reports using walker at home. Has home health arranged (5) Diabetes mellitus Priority: Secondary Status: Chronic Comments: Stable continue proper diet and Onglyza she can hold Onglyza if she is not eating Qualifiers: Diabetes mellitus type: type 2 Diabetes mellitus complication status: with kidney complications Diabetes mellitus complication detail: with chronic kidney disease Diabetes mellitus intermediate insulin use: without director long term care use Chronic kidney disease stage: stage 3 (moderate) Qualified Code(s): E11.22 - Type 2 diabetes mellitus with diabetic chronic kidney disease; N18.3 - Chronic kidney disease, stage 3 (moderate) (6) Chronic atrial fibrillation Priority: Secondary Status: Chronic Comments: Stable continue - Discharge Medications Home Medications: Aspirin 81 mg PO DAILY tab.chew 06/24/15 [Rx] Carvedilol [Coreg] 25 mg PO BIDAC tablet 06/24/15 [Rx] Furosemide [Lasix] 40 mg PO DAILY #30 tablet 06/24/15 [Rx] Isosorbide DInitrate [Isordil] 30 mg PO BID tablet 06/24/15 [Rx] Nitroglycerin 0.4 mg SL Q5MIN PRN #15 tab.subl 06/24/15 [Rx] Ranitidine HCl [Zantac] 150 mg PO BID #30 tablet 06/24/15 [Rx] Saxagliptin HCl [Onglyza] 5 mg PO DAILY #30 tablet 06/24/15 [Rx] Sertraline [Zoloft] 50 mg PO DAILY tablet 06/24/15 [Rx] Acetaminophen [Tylenol] 650 mg PO QID PRN 01/12/17 [History] Amlodipine Besylate 10 mg PO DAILY 01/12/17 [History] Dicyclomine [Bentyl] 10 mg PO QID PRN 01/12/17 [History] Duloxetine HCl [Cymbalta] 60 mg PO DAILY 01/12/17 [History] Methocarbamol [Robaxin-750] 750 mg PO TID 01/12/17 [History] Naproxen Sodium [Aleve] 220 mg PO BID PRN 01/12/17 [History] Pantoprazole Sodium [Protonix] 40 mg PO DAILY 01/12/17 [History] Pravastatin Sodium [Pravachol] 40 mg PO HS 01/12/17 [History] Pregabalin [Lyrica] 100 mg PO BID 01/12/17 [History] Rivaroxaban [Xarelto] 15 mg PO DAILY 01/12/17 [History] Albuterol Neb [Proventil Neb] 2.5 mg IH Q2H PRN #0 inhsol 01/30/17 [Rx] Lisinopril [Zestril] 40 mg PO DAILY 05/17/17 [History] Saxagliptin HCl [Onglyza] 5 mg PO 05/17/17 [History] Allergies/Adverse Reactions: Allergies Penicillins [PCN] Allergy (Severe, Verified 01/24/17 12:00) See Comments reaction documented in 566 diphenhydramine Allergy (Verified 01/24/17 12:00) See Comments reaction documented in 566 Date of admission: 05/17/17 11:08 Primary care physician: Marissa Madden Consults: 05/17/17 14:14 Consult to Issuing Operator [CONS] Routine Reason for SW Consult: pt has HH, 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[employer] , and receives MOW Discharging clinician: Collin Mathew Anticipated date of discharge: 05/18/17 - Patient Status Disposition: Home Health Service Condition: Fair Functional capacity at discharge: uses cane/walker Overall status at discharge: patient is progressing back to baseline - Discharge Instructions Follow Up With: Marissa Madden, MANOHAR [Primary Care Provider] - 1 week - Diet and Activity Activity: resume usual activities as tolerated Diet: advance to your usual diet Interval History: 67-year-old female came in as observation for gastroenteritis to weakness or syncope postural dizziness. She felt like she improved overnight with IV fluids. She is very anxious because her sister recently from drugs and alcohol zolpidem helped her get a good nights sleep. She feels much better today she feels ready to go home. Started discharge but when home health called there is a report that she had to be reevaluated before she could be discharged. At the nurse will check that since she was observation for admission they should feel to continue home health. Alexa called the home health nurse who is on away. He denies any chest pain shortness of breath she has nausea able to hold fluids down she is able and weight with a walker and get around and she wants to go home. Questions answered concerns addressed, continue home medicines as before. Hospital course: Ms. Hernandez is a 66 year old female - Time Spent with Patient Total time spent providing and/or coordinating discharge services: Greater than 30 minutes - Constitutional Vitals: Temp Pulse Resp BP Pulse Ox 97.7 F 74 18 100/52 91 05/18/17 11:16 05/18/17 11:16 05/18/17 11:16 05/18/17 11:16 05/18/17 11:16 Exam: General: Alert and oriented, no acute distress Lungs: Clear to auscultation bilaterally without wheezing or crackles Heart: Regular rate and rythms without murmer or rubs Abdomen: Soft, nontender, Extremities: no edema, redness
--- NOTE | 2017-05-18 12:17 | Electrocardiograph Report ---
[address] [place], [place] [address] Test Date: 2017-05-17 Pat Name: Yuly Hernandez Department: [id number] Room: [facility] Gender: F Cerner Analyst: [id number] : 1950 Requested By: Hitesh Macedo Order Number: [id number] Reading MD: Kiara Ceron Measurements Intervals [place] Rate: 77 P: [place]: 0 QRS: -44 QRSD: 106 T: -32 QT: 383 QTc: 415 Interpretive Statements ATRIAL FIBRILLATION LEFT AXIS DEVIATION POSSIBLE OLD ANTERIOR MO LOW QRS VOLTAGE IN EXTREMITY LEADS Electronically Signed On 05-18-2017 12:15:38 EDT by Kiara Ceron
[2017-05-18 17:08] LABS: Hemoglobin A1C 5.8 %
[2017-05-19] MEDS ORDERED: *HR* Rivaroxaban 10 MG TABLET PO SCH (18:00)
== END 2017-05-18 12:56 | disposition home health service (06) ==
LOC: EMEROOPIK 09:26 → INPPIK 09:26
PROVIDERS: ADMIT Family Medicine; ATTEND Family Medicine

== ENCOUNTER 2017-12-21 16:44 | Inpatient (IN) ==
[2017-12-21 17:46] LABS: Bilirubin,Urine Negative (Negative); Blood,Urine Small (Negative); Clarity,Urine Turbid (Clear); Color,Urine Yellow (Yellow); Glucose,Urine (UA) Normal (Normal); Ketones,Urine Negative (Negative); Leukocyte Esterase,Urine Large (Negative); Nitrite,Urine Positive (Negative); Protein,Urine 30 mg/dL (Neg-Trace); Specific Gravity,Urine 1.015 (1.010-1.025); Urobilinogen,Urine Normal (Normal)
[2017-12-21 17:54] LABS: Bacteria,Urine Many per hpf (None-Few); Renal Epithelial Cells,Urine Moderate per hpf (None-Few); WBC,Urine TNTC per hpf (0-3)
--- NOTE | 2017-12-21 17:54 | Emergency Department Note ---
Disposition Clinical Impression: Weakness, KACEY (acute kidney injury) UTI (urinary tract infection) Qualifiers: Urinary tract infection type: acute cystitis Hematuria presence: without hematuria Qualified Code(s): N30.00 - Acute cystitis without hematuria Disposition: Admitted As Inpatient Condition: Fair Referrals: Marissa Madden CNP [Primary Care Provider] - General Adult HPI - General Chief complaint: ED General Medical Stated complaint: shaking legs and cannot stand up Source: patient, EMS Mode of arrival: EMS Limitations: no limitations Nursing Notes Reviewed: Yes Vital Signs Reviewed: Yes - History of Present Illness HPI Narrative: Patient presents to the ED via EMS complaining of generalized weakness, dry mouth, shaking in her legs and arms occasionally and having difficulty standing or moving her wheelchair. She also reports a dry cough for 1 week. She denies any abdominal pain, chest pain or shortness of breath. No URI symptoms. No urinary symptoms although she does have chronic incontinence. No nausea, vomiting, diarrhea or constipation. No fever or chills. She states the shaking in her arms and legs are intermittent and ongoing on for 1 week. She reports today her teeth were chattering and her hand was shaking so much she could not eat breakfast. She does have history of prior CVAs with last stroke in 2016. She has some residual left-sided weakness and is wheelchair bound as a complication. She does require assistance to stand and pivot at baseline but states she can normally move herself around in her wheelchair and is unable to do that currently because of feeling generally weak. She denies any new focal weakness in arm or leg. No numbness or tingling in her arms or legs. No difficulty with speech. No recent change in medications. No sick contacts or travel. Pain Scale: 0 - Related Data Home Medications Medication Instructions Recorded Confirmed Acetaminophen [Tylenol] 650 mg PO Q4HR PRN 12/21/17 12/21/17 Aspirin [Lo-Dose Aspirin EC] 81 mg PO QAM 12/21/17 12/21/17 Carvedilol [Coreg] 25 mg PO HS 12/21/17 12/21/17 Dicyclomine [Bentyl] 10 mg PO Q6H 12/21/17 12/21/17 Duloxetine HCl [Cymbalta] 60 mg PO QAM 12/21/17 12/21/17 Furosemide [Lasix] 40 mg PO QAM 12/21/17 12/21/17 Isosorbide DInitrate [Isosorbide 30 mg PO BID 12/21/17 12/21/17 Dinitrate] Lisinopril [Zestril] 40 mg PO QPM 12/21/17 12/21/17 Methocarbamol [Robaxin-750] 750 mg PO TID 12/21/17 12/21/17 Naproxen Sodium [Aleve] 220 mg PO BID PRN 12/21/17 12/21/17 Pantoprazole Sodium [Protonix] 40 mg PO QAM 12/21/17 12/21/17 Pravastatin Sodium [Pravachol] 40 mg PO HS 12/21/17 12/21/17 Pregabalin [Lyrica] 100 mg PO BID 12/21/17 12/21/17 Ranitidine HCl [Zantac] 150 mg PO BID PRN 12/21/17 12/21/17 Rivaroxaban [Xarelto] 15 mg PO QAM 12/21/17 12/21/17 Saxagliptin HCl [Onglyza] 5 mg PO QAM 12/21/17 12/21/17 Sertraline [Zoloft] 50 mg PO QAM 12/21/17 12/21/17 amLODIPine [Norvasc] 10 mg PO QAM 12/21/17 12/21/17 hydrALAZINE [HydrALAZINE] 50 mg PO TID 12/21/17 12/21/17 Allergies Allergy/AdvReac Type Severity Reaction Status Date / Time Penicillins [PCN] Allergy Severe See Verified 12/21/17 16:45 Comments diphenhydramine Allergy See Verified 12/21/17 16:45 Comments Constitutional: Reports: weakness (generalized). Denies: fever, chills, weight change Eyes: Denies: eye pain, eye discharge, vision change ENT ED: Denies: ear pain, throat pain, dental pain, hearing loss, epistaxis, congestion, dysphagia Cardiovascular: Denies: chest pain, palpitations, dyspnea on exertion, edema, syncope Respiratory: Denies: cough, dyspnea, wheezes, hemoptysis, stridor Gastrointestinal: Denies: abdominal pain, nausea, vomiting, diarrhea, constipation, hematemesis, melena, hematochezia Genitourinary: Denies: dysuria, frequency, hematuria, discharge Musculoskeletal: Denies: back pain, neck pain, arthralgia, myalgia Integumentary: Denies: rash, abrasion, lesions Neurological: Denies: headache, weakness, numbness, paresthesias, confusion, abnormal gait, vertigo Psychiatric: Denies: anxiety, depression, suicidal thoughts, homicidal thoughts , auditory hallucinations, visual hallucinations Endocrine: Denies: fatigue Hematological/Lymphatic: Denies: easy bleeding, easy bruising Allergic/Immunologic: Denies: facial swelling, urticaria Past Medical History - Past Medical History Medical history: Reports: asthma, atrial fibrillation, CHF, COPD, CVA, diabetes , hyperlipidemia, hypertension, kidney stones, other Surgical history: Reports: angioplasty/stent, cataract (Bilateral), cholecystectomy, herniorrhaphy, ureteral stent, other (Thyroid biopsy benign, colonoscopy normal) Psychiatric history: Reports: anxiety, depression - Social History Smoking Status: Never smoker Smokeless Tobacco Status: No Alcohol use: Reports: none Drug use: Reports: none Physical Exam - General Limitations: no limitations General appearance: alert, in no apparent distress - Head Head exam: atraumatic - Eye Eye exam: Present: normal appearance, PERRL, EOMI - ENT ENT exam: normal exam, normal oropharynx, mucous membranes dry - Neck Neck exam: Present: normal inspection, full ROM, trachea midline - Chest Chest inspection: Present: normal inspection, symmetric chest wall rise - Respiratory Respiratory exam: Present: normal lung sounds bilaterally, wheezes (scattered) - Cardiovascular Cardiovascular exam: Present: regular rate, irregular rhythm, normal heart sounds - Abdominal Exam Abdominal exam: Present: soft, Non-Tender. Absent: tenderness, distention, guarding, rebound, rigidity - Extremities Exam Extremities exam: Present: normal inspection, full ROM, normal capillary refill. Absent: tenderness, pedal edema - Back Exam Back exam: Present: normal inspection, full ROM. Absent: tenderness - Neurological Exam Neurological exam: Present: alert, oriented X3, CN II-XII intact. Absent: motor sensory deficit - Expanded Neurological Exam Patient oriented to: Present: person, place, time Speech: Present: fluid speech Motor strength - LUE: 4/5 Motor strength - RUE: 5/5 Motor strength - LLE: 5/5 Motor strength - RLE: 5/5 Sensory exam upper extremity: light touch: Normal Sensory exam lower extremity: light touch: Normal Coma Scale Eye Opening: Spontaneous Coma Scale Motor Response: Obeys Commands Coma Scale Verbal Response: Oriented Coma Scale Total: 15 - Psychiatric Psychiatric exam: Present: normal mood, anxious - Skin Skin exam: Present: warm, dry, intact, normal color Course Course Narrative: Patient presents to the ED complaining of feeling generally weak and shaky along with dry mouth and a recent cough. She is afebrile and hemodynamically stable on arrival. She does appear clinically dehydrated on exam. She has a history of A. fib and EKG on arrival shows A. fib is rate controlled at 80. Given her cough will obtain chest x-ray to rule out possibility of pneumonia. Will check routine labs and urinalysis for other signs of infection or other underlying problem such as a left-sided abnormality. Given her history of strokes with what appears to be intermittent tremors will obtain head CT as well. Will give IV fluids initially for her. Dehydration. - Reevaluation(s) Reevaluation #1: CBC and BMP are unremarkable other than elevated creatinine was 3.0 compared to a normal baseline. Urinalysis does show significant evidence of UTI. There is no leukocytosis. Coags are normal. Chest x-ray does not show any acute pathology. She will be started on Cipro for her UTI and will continue IV fluids. Given her acute kidney injury she will would benefit from admission for continued IV fluids and reevaluation. I discussed this with the patient who is in agreement. Will contact the hospitalist on-call. Reevaluation #2: I spoke to the hospitalist on-call, Dr. Martins, who has agreed to accept the patient. We will continue IV fluids. Vital Signs Temperature 97.6 F 12/21/17 16:46 Pulse Rate 79 12/21/17 16:46 Respiratory Rate 17 12/21/17 16:46 Blood Pressure 107/45 12/21/17 16:46 O2 Sat by Pulse Oximetry 92 12/21/17 16:46 Temperature 97.6 F 12/21/17 16:46 Pulse Rate 83 12/21/17 19:49 Respiratory Rate 16 12/21/17 19:49 Blood Pressure 115/63 12/21/17 19:49 O2 Sat by Pulse Oximetry 93 12/21/17 19:49 Oxygen Delivery Oxygen Delivery Room Air Medical Decision Making - Differential Diagnosis Dehydration, viral infection, electrolyte abnormality, pneumonia, UTI - Medical Records Medical records reviewed: Yes I reviewed the patient's medical records. - Lab Data Lab results reviewed: Yes I reviewed the patient's lab results. Result diagrams: 12/21/17 18:05 12/21/17 18:05 Lab Results 12/21/17 12/21/17 12/21/17 Range/Units 17:41 18:05 18:05 WBC 10.7 (4.3-11.1) K/mcL RBC 3.57 L (3.82-4.97) M/mcL Hgb 10.6 L (11.5-15.4) g/dL Hct 32.8 L (35.3-44.9) % MCV 91.9 (83.0-100.0) fL MCH 29.7 (28.0-33.3) pg MCHC 32.3 (31.6-35.5) g/dL RDW 13.9 (11.5-14.5) % Plt Count 178 (140-400) K/mcL MPV 11.1 (9.4-12.4) fL Immature Gran % 0.6 (0-4) % Seg Neutrophils % 67.7 % Lymphocytes % 19.0 % Monocytes % 8.7 % Eosinophils % 3.7 % Basophils % 0.3 % Neutrophils # 7.2 (1.6-8.9) K/mcL Lymphocytes # 2.0 (0.6-4.6) K/mcL Monocytes # 0.9 (0.0-1.3) K/mcL Eosinophils # 0.4 (0.0-0.6) K/mcL Basophils # 0.0 (0.0-0.2) K/mcL PT 14.8 H (9.4-12.1) Seconds INR 1.4 Sodium (136-145) mEq/L Potassium (3.5-5.1) mEq/L Chloride (98-107) mEq/L Carbon Dioxide (23-29) mEq/L BUN (8-23) mg/dL Creatinine (0.60-1.20) mg/dL Est GFR ( Amer) (> 60) Est GFR (Non-Af Amer) (> 60) BUN/Creatinine Ratio (6-26) Glucose (70-105) mg/dL Calculated Osmolality (280-300) Calcium (8.6-10.3) mg/dL Urine Color Yellow (Yellow) Urine Clarity Turbid A (Clear) Urine pH 5.0 (5.0-8.0) pH Units Ur Specific [place] 1.015 (1.010-1.025) Urine Protein 30 H (Neg-Trace) mg/dL Urine Glucose (UA) Normal (Normal) mg/dL Urine Ketones Negative (Negative) mg/dL Urine Blood Small H (Negative) Urine Nitrite Positive A (Negative) Urine Bilirubin Negative (Negative) Urine Urobilinogen Normal (Normal) mg/dL Ur Leukocyte Esterase Large H (Negative) Urine Microscopic WBC TNTC H (0-3) per hpf Ur Renal Epithelial Cell Moderate H (None-Few) per hpf Urine Bacteria Many H (None-Few) per hpf Ur Culture Indicated? YES A (NO) 12/21/17 Range/Units 18:05 WBC (4.3-11.1) K/mcL RBC (3.82-4.97) M/mcL Hgb (11.5-15.4) g/dL Hct (35.3-44.9) % MCV (83.0-100.0) fL MCH (28.0-33.3) pg MCHC (31.6-35.5) g/dL RDW (11.5-14.5) % Plt Count (140-400) K/mcL MPV (9.4-12.4) fL Immature Gran % (0-4) % Seg Neutrophils % % Lymphocytes % % Monocytes % % Eosinophils % % Basophils % % Neutrophils # (1.6-8.9) K/mcL Lymphocytes # (0.6-4.6) K/mcL Monocytes # (0.0-1.3) K/mcL Eosinophils # (0.0-0.6) K/mcL Basophils # (0.0-0.2) K/mcL PT (9.4-12.1) Seconds INR Sodium 136 (136-145) mEq/L Potassium 4.8 (3.5-5.1) mEq/L Chloride 101 (98-107) mEq/L Carbon Dioxide 28 (23-29) mEq/L BUN 68 H (8-23) mg/dL Creatinine 2.98 H (0.60-1.20) mg/dL Est GFR ( Amer) 19 L (> 60) Est GFR (Non-Af Amer) 16 L (> 60) BUN/Creatinine Ratio 23 (6-26) Glucose 140 H (70-105) mg/dL Calculated Osmolality 304 H (280-300) Calcium 8.7 (8.6-10.3) mg/dL Urine Color (Yellow) Urine Clarity (Clear) Urine pH (5.0-8.0) pH Units Ur Specific [place] (1.010-1.025) Urine Protein (Neg-Trace) mg/dL Urine Glucose (UA) (Normal) mg/dL Urine Ketones (Negative) mg/dL Urine Blood (Negative) Urine Nitrite (Negative) Urine Bilirubin (Negative) Urine Urobilinogen (Normal) mg/dL Ur Leukocyte Esterase (Negative) Urine Microscopic WBC (0-3) per hpf Ur Renal Epithelial Cell (None-Few) per hpf Urine Bacteria (None-Few) per hpf Ur Culture Indicated? (NO) - Radiology Data Radiology results reviewed: Yes I reviewed the patient's radiology results. ITS Impressions Head CT 12/21/17 17:55 IMPRESSION: Sequela of chronic small vessel ischemic change. No acute intracranial abnormality is seen. D/ / 12/21/2017 19:16:49 Myles Whalen MD / cameron Interpreting Provider: Myles Whalen MD Chest X-Ray 12/21/17 17:56 IMPRESSION: Pulmonary venous congestion without overt edema. D/ / Guilherme Mesa MD / Guilherme Mesa MD Interpreting Provider: Guilherme Mesa MD - EKG Data EKG #1 EKG attestation: Yes I reviewed and interpreted this EKG. Rate: normal Rhythm: A.Fib Carson/QRS: right axis deviation Interpretation: no acute changes, other (rate controlled A-fib)
[2017-12-21] MEDS ORDERED: 0.9 % Sodium Chloride 1,000 ML IVC ONE (17:55)
[2017-12-21 18:13] LABS: Basophils % 0.3 %; Eosinophils # 0.4 K/mcL (0.0-0.6); Eosinophils % 3.7 %; Hematocrit 32.8 % (35.3-44.9); Hemoglobin 10.6 g/dL (11.5-15.4); Immature Granulocytes % 0.6 % (0-4); Mean Corpuscular HGB Conc 32.3 g/dL (31.6-35.5); Mean Corpuscular Hemoglobin 29.7 pg (28.0-33.3); Mean Corpuscular Volume 91.9 fL (83.0-100.0); Mean Platelet Volume 11.1 fL (9.4-12.4); Monocytes # 0.9 K/mcL (0.0-1.3); Monocytes % 8.7 %; Neutrophils # 7.2 K/mcL (1.6-8.9); Platelet Count 178 K/mcL (140-400); Red Blood Count 3.57 M/mcL (3.82-4.97); Red Cell Distribution Width 13.9 % (11.5-14.5); Segmented Neutrophils % 67.7 %
[2017-12-21 18:19] LABS: INR 1.4; Prothrombin Time 14.8 Seconds (9.4-12.1)
[2017-12-21 18:29] LABS: Calcium 8.7 mg/dL (8.6-10.3); Potassium 4.8 mEq/L (3.5-5.1)
[2017-12-21] MEDS ORDERED: 0.9 % Sodium Chloride 1,000 ML ONE ×2 (20:13→20:58)
[2017-12-21] MEDS ORDERED: 0.9 % Sodium Chloride 1,000 ML IV SCH (20:18)
[2017-12-21] MEDS ORDERED: Naloxone 0.4 MG/ML INJ IVP PRN ×2 (20:29→20:58)
[2017-12-21] MEDS: 0.9 % Sodium Chloride 1,000 ML IV SCH (20:55)
[2017-12-21] MEDS ORDERED: Famotidine 20 MG TABLET PO PRN (20:58)
[2017-12-21] MEDS ORDERED: D5% in Water 1,000 ML IVC PRN (20:58)
[2017-12-21] MEDS ORDERED: *HR* Dextrose 50 % in Water (Syg) 50 ML SYRINGE IVP PRN (20:58)
[2017-12-21] MEDS ORDERED: Dextrose Gel 15 GM/37.5 ML TUBE PO PRN ×2 (20:58)
[2017-12-21] MEDS ORDERED: Acetaminophen 325 MG TABLET PO PRN (20:58)
[2017-12-22] MEDS: Insulin LISPRO 300 UNITS/3 ML VIAL SQ SCH ×5 (00:37→19:50)
[2017-12-22] MEDS: Pregabalin 50 MG CAPSULE PO SCH ×3 (00:38→19:50)
[2017-12-22] MEDS: Methocarbamol 500 MG TABLET PO SCH ×2 (00:38→07:48)
[2017-12-22] MEDS: hydrALAZINE 25 MG TABLET PO SCH ×2 (00:38→07:47)
[2017-12-22] MEDS: 0.9 % Sodium Chloride 1,000 ML IV SCH (04:15)
[2017-12-22 07:15] LABS: Calcium 8.5 mg/dL (8.6-10.3); Potassium 4.4 mEq/L (3.5-5.1)
[2017-12-22] MEDS: Saxagliptin Hcl [Onglyza] 5 MG PO SCH (07:49)
[2017-12-22] MEDS: *HR* Rivaroxaban 15 MG TABLET PO SCH ×2 (07:49→16:31)
[2017-12-22] MEDS ORDERED: Famotidine 20 MG TABLET PO PRN (08:15)
[2017-12-22] MEDS ORDERED: Aspirin Enteric Coated 81 MG Tablet PO SCH (09:00)
[2017-12-22] MEDS ORDERED: amLODIPine 5 MG TABLET PO SCH (09:00)
--- NOTE | 2017-12-22 10:06 | Internal Med History&Physical ---
Date of Encounter: 12/22/17 Time of Encounter: 09:45 Assessment and Plan (1) KACEY (acute kidney injury) Current visit: Yes Status: Acute Suspect due to dehydration. We will give IV fluids and hold Lasix. Recheck labs in a.m. (2) Chronic atrial fibrillation Current visit: No Status: Chronic Continues Xarelto (3) Hypertension Current visit: No Status: Chronic Blood pressure is low. We will hold amlodipine, hydralazine and Coreg and give IV fluids. Qualifiers: Hypertension type: essential hypertension Qualified Code(s): I10 - Essential (primary) hypertension (4) UTI (urinary tract infection) Current visit: Yes Status: Acute She was given Cipro in the emergency room. I will give her IV Rocephin with lactobacillus. Urine culture has been ordered. Qualifiers: Urinary tract infection type: acute cystitis Hematuria presence: with hematuria Qualified Code(s): N30.01 - Acute cystitis with hematuria Internal Medicine - H&P: HPI Chief complaint: Weakness, dehydration, UTI Admitted From: Emergency Dept Plans for Post Hospital Care: Home History of present illness: Ms. Hernandez is a 67 year old female who was brought to emergency room by squad after she had weakness and difficulty standing or moving her wheelchair at home. Emergency room reports states she reported a dry cough for a week with sensation of chilling. She was evaluated in emergency room and found to have azotemia probably secondary to dehydration, UTI, and mild anemia. [facility]. She is lethargic at this time and cannot give any reliable history. She was hospitalized at [facility] January 2017 with bronchitis. Past Med Surg Social Fam HX - Past Medical History Medical history: asthma, atrial fibrillation, CHF, COPD, CVA, diabetes, hyperlipidemia, hypertension, kidney stones, other Psychiatric history: anxiety, depression - Past Surgical History Surgical History: angioplasty/stent, cataract, cholecystectomy, herniorrhaphy, ureteral stent, other - Social History Smoking Status: Never smoker Smokeless Tobacco Status: No Alcohol use: none Drug use: none Internal Medicine - H&P: Meds Acetaminophen [Tylenol] 650 mg PO Q4HR PRN 12/21/17 [History] Aspirin [Lo-Dose Aspirin EC] 81 mg PO QAM 12/21/17 [History] Carvedilol [Coreg] 25 mg PO HS 12/21/17 [History] Dicyclomine [Bentyl] 10 mg PO Q6H 12/21/17 [History] Duloxetine HCl [Cymbalta] 60 mg PO QAM 12/21/17 [History] Furosemide [Lasix] 40 mg PO QAM 12/21/17 [History] Isosorbide DInitrate [Isosorbide Dinitrate] 30 mg PO BID 12/21/17 [History] Lisinopril [Zestril] 40 mg PO QPM 12/21/17 [History] Methocarbamol [Robaxin-750] 750 mg PO TID 12/21/17 [History] Naproxen Sodium [Aleve] 220 mg PO BID PRN 12/21/17 [History] Pantoprazole Sodium [Protonix] 40 mg PO QAM 12/21/17 [History] Pravastatin Sodium [Pravachol] 40 mg PO HS 12/21/17 [History] Pregabalin [Lyrica] 100 mg PO BID 12/21/17 [History] Ranitidine HCl [Zantac] 150 mg PO BID PRN 12/21/17 [History] Rivaroxaban [Xarelto] 15 mg PO QAM 12/21/17 [History] Saxagliptin HCl [Onglyza] 5 mg PO QAM 12/21/17 [History] Sertraline [Zoloft] 50 mg PO QAM 12/21/17 [History] amLODIPine [Norvasc] 10 mg PO QAM 12/21/17 [History] hydrALAZINE [HydrALAZINE] 50 mg PO TID 12/21/17 [History] 3 Allergy/AdvReac Type Severity Reaction Status Date / Time Penicillins [PCN] Allergy Severe See Verified 12/21/17 16:45 Comments diphenhydramine Allergy See Verified 12/21/17 16:45 Comments All Systems PM: A 10-system review of systems was performed and is negative for pertinent findings except as documented above in the HPI. Review of systems: Review of systems from her January 2017 [facility] hospitalization were reviewed and revised as below. Gen.: Her weight has decreased from 106.957 kg on 01/30/2017 to 100.698 kg on admission. Cardiovascular: She has history of hypertension. She has chronic atrial fibrillation and takes Xarelto. She claims a history of heart failure but an echocardiogram done 06/24/2015 showed LVEF of 60-65%. There was indeterminate diastolic function due to atrial fibrillation. No significant valvular abnormalities were seen. She had LAE at 4.2 cm. She had a Regadenoson stress test 04/23/2016 which showed no EKG or perfusion changes to indicate ischemia or infarct. She denies DVT or pulmonary embolus Respiratory: As per history of present illness GI: She has had cholecystectomy. She has GERD and IBS. She claims a colonoscopy done early December 2016 was unremarkable. She denies disorders of her liver or exocrine pancreas : She has chronic kidney disease but has not yet seen a software engineer intern. She denies other kidney or bladder disorders Neurologic: She claims she has had 5 strokes with the most recent one in 2009. Sequelae include a swallowing deficit and left hemiparesis. She uses a walker for ambulation. She denies seizures. Endocrine: She was diagnosed with DM 2 approximately 2013. Her most recent hemoglobin A1c was 5.8% on 05/18/2017. She has presumed hyperlipidemia and is on Pravachol. She denies thyroid disease but TSH was slightly suppressed at 0.247 on 01/14/2017. Hematology/oncology: She denies blood disorders or cancers. Hemoglobin was low at 10.6 in emergency room. Psychiatric: She has a diagnosis of depression but denies anxiety or other mental health issues Musk skeletal: She has DJD but denies gout or other bone joint or muscle disorders. - Constitutional Vitals: Temp Pulse Resp BP Pulse Ox 98.7 F 80 17 92/50 98 12/22/17 06:30 12/22/17 06:30 12/22/17 06:30 12/22/17 06:30 12/22/17 06:30 Exam: Gen.: She is well-developed overweight female lying in bed who is lethargic. She awakens and answers a few questions with short but often inaccurate answers HEENT: Head is atraumatic and normocephalic. Eyes: EOMI. There is no scleral icterus. Mouth: Mucosa is dry. Neck: There is no thyromegaly or adenopathy noted. Heart: Irregularly irregular. Tones are soft. Lungs: No wheezes or crackles are heard. Abdomen: Soft and nontender. No masses or guarding are noted. Extremities: There is no cyanosis edema or clubbing noted. Dorsalis pedis and posterior tibial pulses are trace to 1+ palpable bilaterally. Neurologic: Mental status: She is lethargic. She awakens but does not know her age or location. Cranial nerves: Facial movements are minimal but appear to be symmetric. EOMI. Tongue protrudes midline. Motor: She does not move much spontaneously. She is stiff on passive range of motion. No other neurologic testing is attempted. Skin: Warm and dry Internal Med - H&P Results - Labs CBC & Chem 7: 12/21/17 18:05 12/22/17 06:45 Labs: BMP 12/22/17 06:45 Sodium 138 Potassium 4.4 Chloride 106 Carbon Dioxide 27 BUN 52 H Creatinine 1.97 H Glucose 159 H Calcium 8.5 L - VTE Reasons for not Prescribing Prophylaxis: Not indicated-Anticoagulated or INR therapeutic
[2017-12-22] MEDS: *HR* LORazepam 2 MG/ML VIAL IVP PRN (18:52)
[2017-12-22] MEDS: Lactobacillus 1 EACH CAP.SPRINK PO SCH (19:50)
[2017-12-23 04:06] LABS: Basophils % 0.3 %; Eosinophils # 0.3 K/mcL (0.0-0.6); Hemoglobin 9.9 g/dL (11.5-15.4); Immature Granulocytes % 0.4 % (0-4); Lymphocytes # 1.8 K/mcL (0.6-4.6); Lymphocytes % 25.7 %; Mean Corpuscular HGB Conc 31.9 g/dL (31.6-35.5); Mean Corpuscular Hemoglobin 29.4 pg (28.0-33.3); Mean Platelet Volume 11.1 fL (9.4-12.4); Monocytes # 0.6 K/mcL (0.0-1.3); Monocytes % 9.3 %; Neutrophils # 4.1 K/mcL (1.6-8.9); Platelet Count 171 K/mcL (140-400); Red Blood Count 3.37 M/mcL (3.82-4.97); Red Cell Distribution Width 13.6 % (11.5-14.5); Segmented Neutrophils % 59.3 %
[2017-12-23 04:34] LABS: Albumin 3.1 g/dL (3.5-5.7); Albumin/Globulin Ratio 1.1 (1.1-2.2); Bilirubin,Total 0.4 mg/dL (0.3-1.0); Calcium 8.6 mg/dL (8.6-10.3); Globulin 2.8 g/dL (2.4-3.5); Magnesium 2.2 mg/dL (1.6-2.6); Potassium 4.1 mEq/L (3.5-5.1); Total Protein 5.9 g/dL (6.4-8.9)
[2017-12-23] MEDS: Insulin LISPRO 300 UNITS/3 ML VIAL SQ SCH ×4 (07:35→22:18)
[2017-12-23] MEDS: Saxagliptin Hcl [Onglyza] 5 MG PO SCH (08:08)
[2017-12-23] MEDS: Lactobacillus 1 EACH CAP.SPRINK PO SCH ×2 (08:56→19:24)
[2017-12-23] MEDS: Pregabalin 50 MG CAPSULE PO SCH ×2 (08:56→19:24)
--- NOTE | 2017-12-23 09:44 | Internal Med Progress Note ---
Date of Encounter: 12/23/17 Time of Encounter: 09:35 - Assessment and plan (1) KACEY (acute kidney injury) Current Visit: Yes Status: Acute Assessment and plan: December 23. Significantly improved. Continue IV fluids and hold Lasix. Recheck labs in a.m. (2) Chronic atrial fibrillation Current Visit: No Status: Chronic Assessment and plan: December 23. Continue Xarelto (3) Hypertension Current Visit: No Status: Chronic Assessment and plan: December 23. Blood pressure improved. Continue to hold amlodipine, hydralazine , Coreg, and give IV fluids. Qualifiers: Hypertension type: essential hypertension Qualified Code(s): I10 - Essential (primary) hypertension (4) UTI (urinary tract infection) Current Visit: Yes Status: Acute Assessment and plan: December 23. Urine culture preliminary report shows gram-negative rods. Continue Rocephin and lactobacillus. Qualifiers: Urinary tract infection type: acute cystitis Hematuria presence: with hematuria Qualified Code(s): N30.01 - Acute cystitis with hematuria (5) Anemia Current Visit: Yes Status: Acute Assessment and plan: December 23. Will order anemia testing in a.m. Qualifiers: Anemia type: unspecified type Qualified Code(s): D64.9 - Anemia, unspecified - Subjective Interval history: December 23. She is sleeping. No new problems have arisen. - Constitutional Vitals: Temp Pulse Resp BP Pulse Ox 97.8 F 72 20 107/59 96 12/23/17 06:36 12/23/17 06:36 12/23/17 06:36 12/23/17 06:36 12/23/17 09:23 Exam: She is resting comfortably in bed. She arouses slightly to light touch. Heart is irregularly irregular. Lungs are clear anteriorly. I reviewed her medications and lab results. Internal Medicine: Result - Labs CBC & Chem 7: 12/23/17 03:35 12/23/17 03:35 Labs: Short CBC 12/23/17 Range/Units 03:35 WBC 6.9 (4.3-11.1) K/mcL Hgb 9.9 L (11.5-15.4) g/dL Hct 31.0 L (35.3-44.9) % Plt Count 171 (140-400) K/mcL Neutrophils # 4.1 (1.6-8.9) K/mcL BMP 12/23/17 03:35 Sodium 138 Potassium 4.1 Chloride 109 H Carbon Dioxide 26 BUN 36 H Creatinine 1.22 H Glucose 93 Calcium 8.6 Liver Function 12/23/17 Range/Units 03:35 Total Bilirubin 0.4 (0.3-1.0) mg/dL AST 19 (13-39) Units/L ALT 10 (7-52) Units/L Alkaline Phosphatase 71 (34-104) Units/L Albumin 3.1 L (3.5-5.7) g/dL - ABG Interpretation ABG results: PT/INR, D-dimer PT 14.8 Seconds (9.4-12.1) H 12/21/17 18:05 - VTE Reasons for not Prescribing Prophylaxis: Not indicated-Anticoagulated or INR therapeutic Consult Discharge Plan - Plan
[2017-12-23] MEDS: *HR* Rivaroxaban 15 MG TABLET PO SCH (17:27)
--- NOTE | 2017-12-23 19:23 | Electrocardiograph Report ---
[address] [place], [place] [address] Test Date: 2017-12-21 Pat Name: Yuly Hernandez Department: [id number] Room: [facility] Gender: F [employer]iche Duplicator: [id number] : 1950 Requested By: Kayy Pugh Order Number: [id number] Reading MD: Josefina Loja Measurements Intervals [place] Rate: 80 P: [place]: 0 QRS: 114 QRSD: 106 T: 46 QT: 374 QTc: 410 Interpretive Statements ATRIAL FIBRILLATION MARKED RIGHT AXIS DEVIATION LOW QRS VOLTAGE POSSIBLE ANTERIOR MYOCARDIAL INFARCTION, OF INDETERMINATE AGE Electronically Signed On 12-23-2017 19:22:10 EST by Josefina Loja
[2017-12-24] MEDS: *HR* LORazepam 2 MG/ML VIAL IVP PRN ×3 (04:12→22:31)
[2017-12-24 05:10] LABS: Basophils % 0.4 %; Eosinophils # 0.3 K/mcL (0.0-0.6); Eosinophils % 2.9 %; Hematocrit 33.4 % (35.3-44.9); Hemoglobin 10.9 g/dL (11.5-15.4); Immature Granulocytes % 0.6 % (0-4); Lymphocytes # 1.4 K/mcL (0.6-4.6); Lymphocytes % 16.2 %; Mean Corpuscular HGB Conc 32.6 g/dL (31.6-35.5); Mean Corpuscular Hemoglobin 29.5 pg (28.0-33.3); Mean Corpuscular Volume 90.3 fL (83.0-100.0); Mean Platelet Volume 11.1 fL (9.4-12.4); Monocytes # 0.7 K/mcL (0.0-1.3); Monocytes % 8.7 %; Platelet Count 172 K/mcL (140-400); Segmented Neutrophils % 71.2 %
[2017-12-24 05:33] LABS: BUN/Creatinine Ratio 22 (6-26); Blood Urea Nitrogen 19 mg/dL (8-23); Carbon Dioxide 27 mEq/L (23-29); Chloride 107 mEq/L (98-107); Glucose 91 mg/dL (70-105); Osmolality,Calculated 292 (280-300); Potassium 4.1 mEq/L (3.5-5.1); Sodium 140 mEq/L (136-145); eGFR For Non-African Americans > 60 (> 60)
[2017-12-24 05:47] LABS: Thyroid Stimulating Hormone 2.477 mcIU/mL (0.340-5.600)
[2017-12-24] MEDS: Pregabalin 50 MG CAPSULE PO SCH ×2 (08:30→19:49)
[2017-12-24] MEDS: Lactobacillus 1 EACH CAP.SPRINK PO SCH ×2 (08:30→19:49)
[2017-12-24] MEDS: Saxagliptin Hcl [Onglyza] 5 MG PO SCH (08:33)
[2017-12-24 09:25] LABS: % Iron Saturation 16 % (15-50); Ferritin 144 ng/ml (10-120); Iron 46 mcg/dL (50-170); Transferrin 203 mg/dL (203-362)
[2017-12-24 10:20] LABS: Folate 21.7 ng/mL (3.0-16.0)
[2017-12-24] MEDS: Insulin LISPRO 300 UNITS/3 ML VIAL SQ SCH ×4 (12:18→22:34)
[2017-12-24] MEDS: *HR* Rivaroxaban 15 MG TABLET PO SCH (16:47)
[2017-12-24] MEDS ORDERED: Bumetanide 1 MG TABLET PO ONE (19:39)
--- NOTE | 2017-12-24 19:43 | Internal Med Progress Note ---
Date of Encounter: 12/24/17 Time of Encounter: 19:35 - Assessment and plan (1) KACEY (acute kidney injury) Current Visit: Yes Status: Acute Assessment and plan: December 23. Significantly improved. Continue IV fluids and hold Lasix. Recheck labs in a.m. December 24. Resolved. We will discontinue IV fluids. (2) Chronic atrial fibrillation Current Visit: No Status: Chronic Assessment and plan: December 23. Continue Xarelto December 24. Continue Xarelto. We will restart Coreg at a lower dose to help control ventricular rate. (3) Hypertension Current Visit: No Status: Chronic Assessment and plan: December 23. Blood pressure improved. Continue to hold amlodipine, hydralazine , Coreg, and give IV fluids. December 24. Blood pressure has risen. We will restart Coreg at lower dose. Continue to hold amlodipine and hydralazine. Qualifiers: Hypertension type: essential hypertension Qualified Code(s): I10 - Essential (primary) hypertension (4) UTI (urinary tract infection) Current Visit: Yes Status: Acute Assessment and plan: December 23. Urine culture preliminary report shows gram-negative rods. Continue Rocephin and lactobacillus. December 24. Urine culture report shows Escherichia coli. We will start Septra DS and continue lactobacillus. Qualifiers: Urinary tract infection type: acute cystitis Hematuria presence: with hematuria Qualified Code(s): N30.01 - Acute cystitis with hematuria (5) Anemia Current Visit: Yes Status: Acute Assessment and plan: December 23. Will order anemia testing in a.m. December 24. Anemia testing showed no significant factor deficiency. Hemoglobin has improved. Qualifiers: Anemia type: unspecified type Qualified Code(s): D64.9 - Anemia, unspecified - Subjective Interval history: December 23. She is sleeping. No new problems have arisen. December 24. She has no new complaints. - Constitutional Vitals: Temp Pulse Resp BP Pulse Ox 97.7 F 85 18 146/97 95 12/24/17 15:37 12/24/17 15:37 12/24/17 15:37 12/24/17 15:37 12/24/17 15:37 Exam: She is resting in bed and appears slightly dyspneic. She states she has been trying to get up. Her heart is irregularly irregular with rate approximately 102/m. Lungs are clear anteriorly. Extremity show no edema. I reviewed her medications and lab results. Internal Medicine: Result - Labs CBC & Chem 7: 12/24/17 04:31 12/24/17 04:31 Labs: Short CBC 12/24/17 Range/Units 04:31 WBC 8.5 (4.3-11.1) K/mcL Hgb 10.9 L (11.5-15.4) g/dL Hct 33.4 L (35.3-44.9) % Plt Count 172 (140-400) K/mcL Neutrophils # 6.0 (1.6-8.9) K/mcL BMP 12/24/17 04:31 Sodium 140 Potassium 4.1 Chloride 107 Carbon Dioxide 27 BUN 19 Creatinine 0.87 Glucose 91 Calcium 9.0 - ABG Interpretation ABG results: PT/INR, D-dimer PT 14.8 Seconds (9.4-12.1) H 12/21/17 18:05 - VTE Reasons for not Prescribing Prophylaxis: Not indicated-Anticoagulated or INR therapeutic Consult Discharge Plan - Plan Referrals: Marissa Madden, MANOHAR [Primary Care Provider] - 1 week
[2017-12-24] MEDS: Sulfamethoxazole/Trimeth DS 1 EACH TABLET PO SCH (20:04)
[2017-12-25] MEDS: Sulfamethoxazole/Trimeth DS 1 EACH TABLET PO SCH ×2 (08:16→20:55)
[2017-12-25] MEDS: Lactobacillus 1 EACH CAP.SPRINK PO SCH ×2 (08:16→20:56)
[2017-12-25] MEDS: Pregabalin 50 MG CAPSULE PO SCH ×2 (08:17→20:54)
[2017-12-25] MEDS: Insulin LISPRO 300 UNITS/3 ML VIAL SQ SCH ×4 (08:20→21:25)
[2017-12-25] MEDS: Saxagliptin Hcl [Onglyza] 5 MG PO SCH (08:23)
--- NOTE | 2017-12-25 09:46 | Internal Med Progress Note ---
Date of Encounter: 12/25/17 Time of Encounter: 09:40 - Assessment and plan (1) KACEY (acute kidney injury) Current Visit: Yes Status: Acute Assessment and plan: December 23. Significantly improved. Continue IV fluids and hold Lasix. Recheck labs in a.m. December 24. Resolved. We will discontinue IV fluids. (2) Chronic atrial fibrillation Current Visit: No Status: Chronic Assessment and plan: December 23. Continue Xarelto December 24. Continue Xarelto. We will restart Coreg at a lower dose to help control ventricular rate. (3) Hypertension Current Visit: No Status: Chronic Assessment and plan: December 23. Blood pressure improved. Continue to hold amlodipine, hydralazine , Coreg, and give IV fluids. December 24. Blood pressure has risen. We will restart Coreg at lower dose. Continue to hold amlodipine and hydralazine. December 25. Coreg has been reordered. We will continue to hold amlodipine and hydralazine. Qualifiers: Hypertension type: essential hypertension Qualified Code(s): I10 - Essential (primary) hypertension (4) UTI (urinary tract infection) Current Visit: Yes Status: Acute Assessment and plan: December 23. Urine culture preliminary report shows gram-negative rods. Continue Rocephin and lactobacillus. December 24. Urine culture report shows Escherichia coli. We will start Septra DS and continue lactobacillus. December 25. Continue Septra and lactobacillus. Qualifiers: Urinary tract infection type: acute cystitis Hematuria presence: with hematuria Qualified Code(s): N30.01 - Acute cystitis with hematuria (5) Anemia Current Visit: Yes Status: Acute Assessment and plan: December 23. Will order anemia testing in a.m. December 24. Anemia testing showed no significant factor deficiency. Hemoglobin has improved. Qualifiers: Anemia type: unspecified type Qualified Code(s): D64.9 - Anemia, unspecified (6) Confusion Current Visit: Yes Status: Acute Assessment and plan: December 25. I suspect she has a component of schizophrenia with agitation. I spoke with the social security assessor and recommend she be evaluated by mental health professionals to adjust medications for behavior and psychosis. - Subjective Interval history: December 23. She is sleeping. No new problems have arisen. December 24. She has no new complaints. December 25. She has no new complaints. She states she wants to go home. - Constitutional Vitals: Temp Pulse Resp BP Pulse Ox 96.6 F L 101 17 131/81 90 12/25/17 08:31 12/25/17 08:31 12/25/17 08:31 12/25/17 08:31 12/25/17 08:31 Exam: She is sitting in a chair at bedside. She is in no respiratory distress. Heart is irregularly irregular. Lungs are clear. Extremities show no pitting edema. She is not dyspneic. Her mental status shows her to be slightly agitated. She is confused about her length of stay. She states she came today to "visit her grandchildren but they are not here". She has difficulty focusing and having appropriate conversation. Internal Medicine: Result - Labs CBC & Chem 7: 12/24/17 04:31 12/24/17 04:31 - ABG Interpretation ABG results: PT/INR, D-dimer PT 14.8 Seconds (9.4-12.1) H 12/21/17 18:05 - VTE Reasons for not Prescribing Prophylaxis: Not indicated-Anticoagulated or INR therapeutic Consult Discharge Plan - Plan Referrals: Marissa Madden, ROVING HAND [Primary Care Provider] - 1 week
[2017-12-25] MEDS: *HR* Rivaroxaban 15 MG TABLET PO SCH (19:02)
[2017-12-26 06:28] VITALS: BP 142/98
[2017-12-26] MEDS: Saxagliptin Hcl [Onglyza] 5 MG PO SCH (09:34)
[2017-12-26] MEDS: Insulin LISPRO 300 UNITS/3 ML VIAL SQ SCH (09:34)
[2017-12-26] MEDS: Pregabalin 50 MG CAPSULE PO SCH (09:42)
[2017-12-26] MEDS: Lactobacillus 1 EACH CAP.SPRINK PO SCH (09:43)
[2017-12-26] MEDS: Sulfamethoxazole/Trimeth DS 1 EACH TABLET PO SCH (09:43)
--- NOTE | 2017-12-26 10:03 | Discharge Summary ---
Date of Encounter: 12/26/17 Time of Encounter: 09:50 - Discharge Diagnosis (1) KACEY (acute kidney injury) Priority: Primary Status: Resolved (2) Chronic atrial fibrillation Priority: Secondary Status: Chronic (3) Hypertension Priority: Secondary Status: Chronic Qualifiers: Hypertension type: essential hypertension Qualified Code(s): I10 - Essential (primary) hypertension (4) UTI (urinary tract infection) Priority: Secondary Status: Acute Qualifiers: Urinary tract infection type: acute cystitis Hematuria presence: with hematuria Qualified Code(s): N30.01 - Acute cystitis with hematuria (5) Anemia Priority: Secondary Status: Acute Qualifiers: Anemia type: unspecified type Qualified Code(s): D64.9 - Anemia, unspecified (6) Confusion Priority: Secondary Status: Acute - Discharge Medications Home Medications: Acetaminophen [Tylenol] 650 mg PO Q4HR PRN 12/21/17 [History] Duloxetine HCl [Cymbalta] 60 mg PO QAM 12/21/17 [History] Isosorbide DInitrate [Isosorbide Dinitrate] 30 mg PO BID 12/21/17 [History] Pravastatin Sodium [Pravachol] 40 mg PO HS 12/21/17 [History] Pregabalin [Lyrica] 100 mg PO BID 12/21/17 [History] Ranitidine HCl [Zantac] 150 mg PO BID PRN 12/21/17 [History] Rivaroxaban [Xarelto] 15 mg PO QAM 12/21/17 [History] Saxagliptin HCl [Onglyza] 5 mg PO QAM 12/21/17 [History] Sertraline [Zoloft] 50 mg PO QAM 12/21/17 [History] Aspirin [Lo-Dose Aspirin EC] 81 mg PO Q48H #0 12/26/17 [Rx] Bumetanide [Bumex] 0.5 mg PO Q48H tablet 12/26/17 [Rx] Carvedilol [Coreg] 12.5 mg PO BIDWM tablet 12/26/17 [Rx] Allergies/Adverse Reactions: 3 Allergy/AdvReac Type Severity Reaction Status Date / Time Penicillins [PCN] Allergy Severe See Verified 12/21/17 16:45 Comments diphenhydramine Allergy See Verified 12/21/17 16:45 Comments Date of admission: 12/23/17 12:26 Primary care physician: Marissa Madden Consults: 12/24/17 09:44 Consult to Occupational Therapy [CONS] Routine Comment: Evaluate, develop and implement POC Reason for Consult: Weakness Consult to Physical Therapy [CONS] Routine Comment: Evaluate, develop and implement POC Reason for Consult: Weakness - Patient Status Disposition: Transfer SNF Condition: Fair Functional capacity at discharge: uses cane/walker Overall status at discharge: patient is progressing back to baseline - Discharge Instructions Forms: ED Satisfaction Letter, Work/School Release - Diet and Activity Activity: as per physical therapy Diet: regular diet Hospital course: Ms. Hernandez is a 67 year old female who was brought to emergency room by squad after she had weakness and difficulty standing or moving her wheelchair at home. Emergency room reports states she reported a dry cough for a week with sensation of chilling. She was evaluated in emergency room and found to have azotemia probably secondary to dehydration, UTI, and mild anemia. She was admitted to [facility] floor for ongoing care needs. Initial orders were written by the emergency room physician. I saw her on December 22 and performed the history and physical. She was started on IV fluids and Lasix was held. Azotemia resolved with BUN and creatinine being 19 and 0.7 respectively on December 24. Anemia testing showed iron 46, transferrin saturation 16, transferrin 203, ferritin 144, B12 312, and folate 21.7. Her hemoglobin improved to 10.9 on December 24. TSH was normal at 2.477. She was started empirically on Rocephin for UTI. Urine culture returned with Escherichia coli. She's changed to Septra DS twice a day for the remainder of hospitalization. She will not continue antibiotics at the intermediate. She was borderline hypotensive on admission. Amlodipine and hydralazine were discontinued. Coreg dose was reduced. Blood pressure returned to a satisfactory range. Bumex every other day will be given in place of Lasix. Labs will be monitored as needed at the intermediate. She had frequent confusion during her hospitalization. It was felt she would benefit from ongoing care at a SNF. She will be discharged to [facility] and follow with me. Anticipated length of stay for therapy is less than 30 days. - Time Spent with Patient Total time spent providing and/or coordinating discharge services: - Constitutional Vitals: Temp Pulse Resp BP Pulse Ox 98.8 F 96 18 142/98 96 12/26/17 06:23 12/26/17 06:23 12/26/17 06:23 12/26/17 06:23 12/26/17 06:23 - VTE Reasons for not Prescribing Prophylaxis: Not indicated-Anticoagulated or INR therapeutic
--- NOTE | 2017-12-26 10:11 | Physician Discharge Referral ---
ExtendedCare Referral Info Transfer To: [facility] Provider in Charge: Eliezer Provider in Charge after Transfer: PCP (Eliezer) - Diagnosis (1) KACEY (acute kidney injury) Priority: Primary Status: Resolved (2) Chronic atrial fibrillation Priority: Secondary Status: Chronic (3) Hypertension Priority: Secondary Status: Chronic (4) UTI (urinary tract infection) Priority: Secondary Status: Acute (5) Anemia Priority: Secondary Status: Acute (6) Confusion Priority: Secondary Status: Acute Prognosis: Fair Aware of Diagnosis: Patient, Family Aware of Prognosis: Patient, Family - Transfer Medications Home Medications: Acetaminophen [Tylenol] 650 mg PO Q4HR PRN 12/21/17 [History] Duloxetine HCl [Cymbalta] 60 mg PO QAM 12/21/17 [History] Isosorbide DInitrate [Isosorbide Dinitrate] 30 mg PO BID 12/21/17 [History] Pravastatin Sodium [Pravachol] 40 mg PO HS 12/21/17 [History] Pregabalin [Lyrica] 100 mg PO BID 12/21/17 [History] Ranitidine HCl [Zantac] 150 mg PO BID PRN 12/21/17 [History] Rivaroxaban [Xarelto] 15 mg PO QAM 12/21/17 [History] Saxagliptin HCl [Onglyza] 5 mg PO QAM 12/21/17 [History] Sertraline [Zoloft] 50 mg PO QAM 12/21/17 [History] Aspirin [Lo-Dose Aspirin EC] 81 mg PO Q48H #0 12/26/17 [Rx] Bumetanide [Bumex] 0.5 mg PO Q48H tablet 12/26/17 [Rx] Carvedilol [Coreg] 12.5 mg PO BIDWM tablet 12/26/17 [Rx] Allergies/Adverse Reactions: 3 Allergy/AdvReac Type Severity Reaction Status Date / Time Penicillins [PCN] Allergy Severe See Verified 12/21/17 16:45 Comments diphenhydramine Allergy See Verified 12/21/17 16:45 Comments - Respiratory Orders Oxygen / L per min (2 L/m by nasal cannula as necessary to keep sat greater than 90%.) Smoking Cessation: Smoking cessation has been advised. For more information, call the [employer] Tobacco Quit Line at 3-275-YTOF-NOW. - Lab Orders Lab Orders: Other (include drug levels w/frequency) (CBC with differential, BMP , BNP peptide in 5 days) - Rehabiliation Orders Rehab Potential: Fair Rehab Orders: Evaluation for Physical Therapy, Evaluation for Occupational Therapy - Diet Orders Regular CERTIFICATION: I certify that the transfer of the above named patient to an Extended Care Facility is necessary for the continuing treatment of the diagnosis listed. The above information is true and accurate reflection of patient's current condition. Confidential - Redisclosure prohibited without a patient's written consent.
== END 2017-12-26 11:10 | DRG 683 ==
LOC: EMEROOPIK 16:44 → INPPIK 16:44
PROVIDERS: ADMIT Internal Medicine; ATTEND Internal Medicine

== ENCOUNTER 2018-01-20 04:41 | Observation (INO) ==
--- NOTE | 2018-01-20 04:45 | Emergency Department Note ---
Disposition Clinical Impression: Respiratory insufficiency Pneumonia Qualifiers: Pneumonia type: due to unspecified organism Laterality: unspecified laterality Lung location: unspecified part of lung Qualified Code(s): J18.9 - Pneumonia, unspecified organism Disposition: Admitted As Inpatient Condition: Fair Time of Disposition: 06:55 SOB HPI - General Chief Complaint: ED Shortness of Breath/Dyspnea Stated Complaint: Dyspnea onset this evening Time Seen by Provider: 01/20/18 04:44 Source: patient Mode of arrival: EMS Limitations: no limitations Nursing Notes Reviewed: Yes Vital Signs Reviewed: Yes - History of Present Illness Pt Subjective Complaint: shortness of breath, cough Onset (ago): week(s) (5) Context: other (Patient was recently hospitalized and discharged to long-term facility secondary to dehydration and UTI. She was re-diagnosed with UTI 1 week ago and was given Septra. The patient reports worsening shortness breath for last last week but seems worse the last 24 hours. She also has an associated cough with mild production.) Severity: moderate Consistency/Duration: gradually worsening Improves with: oxygen, rest Worsens with: exertion, coughing Known history of: COPD, congestive heart failure Associated symptoms: Reports: cough, wheezing, sputum production. Denies: chest pain, pain with inspiration, fever, orthopnea, lower extremity pain, polyuria, polydipsia, parasthesias, palpitations, hemoptysis, diaphoresis, nausea/vomiting, syncope, abdominal pain, sense of impending doom Treatment prior to arrival: oxygen Cough present: Yes Cough Description: Involuntary, Hacking, Weak, Bronchospastic, Rattling Cough Frequency: Intermittent Sputum production: Yes Sputum Amount: Scant Sputum Color: White, Green - Related Data Home Medications Medication Instructions Recorded Confirmed Acetaminophen [Tylenol] 650 mg PO Q4HR PRN 12/21/17 01/20/18 Duloxetine HCl [Cymbalta] 60 mg PO QAM 12/21/17 01/20/18 Isosorbide DInitrate [Isosorbide 30 mg PO BID 12/21/17 01/20/18 Dinitrate] Pravastatin Sodium [Pravachol] 40 mg PO HS 12/21/17 01/20/18 Pregabalin [Lyrica] 100 mg PO BID 12/21/17 01/20/18 Ranitidine HCl [Zantac] 150 mg PO BID PRN 12/21/17 01/20/18 Rivaroxaban [Xarelto] 15 mg PO QAM 12/21/17 01/20/18 Saxagliptin HCl [Onglyza] 5 mg PO QAM 12/21/17 01/20/18 Sertraline [Zoloft] 50 mg PO QAM 12/21/17 01/20/18 Previous Rx's Medication Instructions Recorded Aspirin [Lo-Dose Aspirin EC] 81 mg PO Q48H #0 12/26/17 Bumetanide [Bumex] 0.5 mg PO Q48H tablet 12/26/17 Carvedilol [Coreg] 12.5 mg PO BIDWM tablet 12/26/17 Allergies Allergy/AdvReac Type Severity Reaction Status Date / Time Penicillins [PCN] Allergy Severe See Verified 01/20/18 04:01 Comments diphenhydramine Allergy See Verified 01/20/18 04:01 Comments All systems ED: reviewed and negative except as stated. Past Medical History - Past Medical History Medical history: Reports: asthma, atrial fibrillation, CHF, COPD, CVA, diabetes , hyperlipidemia, hypertension, kidney stones, other Surgical history: Reports: angioplasty/stent, cataract, cholecystectomy, herniorrhaphy, ureteral stent, other Psychiatric history: Reports: anxiety, depression - Social History Smoking Status: Never smoker Smokeless Tobacco Status: No Alcohol use: Reports: none Drug use: Reports: none Physical Exam - General Limitations: physical limitation General appearance: alert, in distress - Head Head exam: atraumatic, normocephalic - Eye Eye exam: Present: normal appearance, PERRL, EOMI. Absent: scleral icterus, conjunctival injection - ENT ENT exam: normal exam, normal oropharynx, mucous membranes dry - Neck Neck exam: Present: normal inspection, full ROM - Chest Chest inspection: Present: normal inspection, symmetric chest wall rise - Respiratory Respiratory exam: Present: respiratory distress, wheezes, prolonged expiratory phase. Absent: stridor, accessory muscle use - Cardiovascular Cardiovascular exam: Present: regular rate, normal rhythm, normal heart sounds, JVD - Abdominal Exam Abdominal exam: Present: soft, Non-Tender, normal bowel sounds - Extremities Exam Extremities exam: Present: normal inspection, full ROM, normal capillary refill , pedal edema - Back Exam Back exam: Present: normal inspection, full ROM. Absent: tenderness - Skin Skin exam: Present: warm, dry, intact Course Vital Signs Temperature 99.1 F 01/20/18 04:44 Pulse Rate 87 01/20/18 04:44 Respiratory Rate 22 01/20/18 04:44 Blood Pressure 144/70 01/20/18 04:44 O2 Sat by Pulse Oximetry 96 01/20/18 04:44 Temperature 99.1 F 01/20/18 04:44 Pulse Rate 78 01/20/18 07:21 Respiratory Rate 18 01/20/18 07:21 Blood Pressure 129/69 01/20/18 07:21 O2 Sat by Pulse Oximetry 99 01/20/18 07:21 Oxygen Delivery Oxygen Delivery Nasal Cannula Shortness of Breath/Dyspnea - Differential Diagnosis Likely: acute exacerbation of chronic obstructive airways disease, congestive heart failure, pneumonia, arrhythmia - Medical Records Medical records reviewed: Yes I reviewed the patient's medical records. - Lab Data Lab results reviewed: Yes I reviewed the patient's lab results. Result diagrams: 01/20/18 05:15 01/20/18 05:15 Lab Results 01/20/18 01/20/18 01/20/18 Range/Units 05:02 05:15 05:15 WBC 11.5 H (4.3-11.1) K/mcL RBC 3.69 L (3.82-4.97) M/mcL Hgb 10.9 L (11.5-15.4) g/dL Hct 34.6 L (35.3-44.9) % MCV 93.8 (83.0-100.0) fL MCH 29.5 (28.0-33.3) pg MCHC 31.5 L (31.6-35.5) g/dL RDW 14.6 H (11.5-14.5) % Plt Count 166 (140-400) K/mcL MPV 10.6 (9.4-12.4) fL Immature Gran % 0.4 (0-4) % Seg Neutrophils % 75.1 % Lymphocytes % 12.2 % Monocytes % 8.6 % Eosinophils % 3.5 % Basophils % 0.2 % Neutrophils # 8.6 (1.6-8.9) K/mcL Lymphocytes # 1.4 (0.6-4.6) K/mcL Monocytes # 1.0 (0.0-1.3) K/mcL Eosinophils # 0.4 (0.0-0.6) K/mcL Basophils # 0.0 (0.0-0.2) K/mcL Sample Site L Brach ABG pH 7.33 (7.32-7.45) pH Units ABG pCO2 54 H (35-45) mmHg ABG pO2 98 (85-104) mmHg ABG HCO3 28 H (21-27) mEq/L ABG Total CO2 30 H (20-26) mEq/L ABG O2 Saturation 97 (95-98) % ABG Base Excess 2 (-2 to 3) mEq/L Hank Test N/A O2 Delivery Device Cannula Inspired O2 3.0 (1-15=lpm [id number]=%) Sodium 142 (136-145) mEq/L Potassium 3.6 (3.5-5.1) mEq/L Chloride 108 H (98-107) mEq/L Carbon Dioxide 27 (23-29) mEq/L BUN 14 (8-23) mg/dL Creatinine 0.93 (0.60-1.20) mg/dL Est GFR ( Amer) > 60 (> 60) Est GFR (Non-Af Amer) 60 (> 60) BUN/Creatinine Ratio 15 (6-26) Glucose 118 H (70-105) mg/dL Calculated Osmolality 296 (280-300) Lactic Acid (0.5-2.2) mmol/L Calcium 8.3 L (8.6-10.3) mg/dL B-Natriuretic Peptide (Less than 100) pg/mL 01/20/18 01/20/18 Range/Units 05:15 05:25 WBC (4.3-11.1) K/mcL RBC (3.82-4.97) M/mcL Hgb (11.5-15.4) g/dL Hct (35.3-44.9) % MCV (83.0-100.0) fL MCH (28.0-33.3) pg MCHC (31.6-35.5) g/dL RDW (11.5-14.5) % Plt Count (140-400) K/mcL MPV (9.4-12.4) fL Immature Gran % (0-4) % Seg Neutrophils % % Lymphocytes % % Monocytes % % Eosinophils % % Basophils % % Neutrophils # (1.6-8.9) K/mcL Lymphocytes # (0.6-4.6) K/mcL Monocytes # (0.0-1.3) K/mcL Eosinophils # (0.0-0.6) K/mcL Basophils # (0.0-0.2) K/mcL Sample Site ABG pH (7.32-7.45) pH Units ABG pCO2 (35-45) mmHg ABG pO2 (85-104) mmHg ABG HCO3 (21-27) mEq/L ABG Total CO2 (20-26) mEq/L ABG O2 Saturation (95-98) % ABG Base Excess (-2 to 3) mEq/L Hank Test O2 Delivery Device Inspired O2 (1-15=lpm [id number]=%) Sodium (136-145) mEq/L Potassium (3.5-5.1) mEq/L Chloride (98-107) mEq/L Carbon Dioxide (23-29) mEq/L BUN (8-23) mg/dL Creatinine (0.60-1.20) mg/dL Est GFR ( Amer) (> 60) Est GFR (Non-Af Amer) (> 60) BUN/Creatinine Ratio (6-26) Glucose (70-105) mg/dL Calculated Osmolality (280-300) Lactic Acid 0.8 (0.5-2.2) mmol/L Calcium (8.6-10.3) mg/dL B-Natriuretic Peptide 334 H (Less than 100) pg/mL - Radiology Data Radiology results reviewed: Yes I reviewed the patient's radiology results. - EKG Data EKG attestation: Yes I reviewed and interpreted this EKG. Rate: Reports: normal Rhythm: Reports: A.Fib [place]/QRS: Reports: right axis deviation Interpretation: Reports: nonspecific ST-T wave changes
[2018-01-20] MEDS ORDERED: Ipratropium/Albuterol Neb 3 ML IH ONE (04:46)
[2018-01-20] MEDS ORDERED: GuaiFENesin/Dextromethorphan TABLET PO STA (04:52)
[2018-01-20] MEDS ORDERED: Cefepime HCl 2,000 MG in D5% in Water (Mini-Bag+) 100 ML IVPB STA (04:59)
[2018-01-20] MEDS ORDERED: Levofloxacin 750 MG/150 ML 750 MG/150 ML BAG IVPB ONE (05:00)
[2018-01-20 05:05] LABS: ABG Base Excess 2 mEq/L (-2 to 3); ABG HCO3 28 mEq/L (21-27); ABG Oxygen Saturation 97 % (95-98); ABG PCO2 54 mmHg (35-45); ABG PH 7.33 pH Units (7.32-7.45); ABG PO2 98 mmHg (85-104); ABG TCO2 30 mEq/L (20-26)
[2018-01-20 05:29] LABS: Basophils % 0.2 %; Eosinophils # 0.4 K/mcL (0.0-0.6); Eosinophils % 3.5 %; Hematocrit 34.6 % (35.3-44.9); Hemoglobin 10.9 g/dL (11.5-15.4); Immature Granulocytes % 0.4 % (0-4); Lymphocytes # 1.4 K/mcL (0.6-4.6); Lymphocytes % 12.2 %; Mean Corpuscular HGB Conc 31.5 g/dL (31.6-35.5); Mean Corpuscular Hemoglobin 29.5 pg (28.0-33.3); Mean Corpuscular Volume 93.8 fL (83.0-100.0); Mean Platelet Volume 10.6 fL (9.4-12.4); Monocytes % 8.6 %; Neutrophils # 8.6 K/mcL (1.6-8.9); Platelet Count 166 K/mcL (140-400); Red Blood Count 3.69 M/mcL (3.82-4.97); Red Cell Distribution Width 14.6 % (11.5-14.5); Segmented Neutrophils % 75.1 %
[2018-01-20 05:47] LABS: BUN/Creatinine Ratio 15 (6-26); Blood Urea Nitrogen 14 mg/dL (8-23); Calcium 8.3 mg/dL (8.6-10.3); Carbon Dioxide 27 mEq/L (23-29); Chloride 108 mEq/L (98-107); Glucose 118 mg/dL (70-105); Osmolality,Calculated 296 (280-300); Potassium 3.6 mEq/L (3.5-5.1); Sodium 142 mEq/L (136-145); eGFR For African Americans > 60 (> 60); eGFR For Non-African Americans 60 (> 60)
[2018-01-20] MEDS ORDERED: Vancomycin 500 MG in 0.9 % Sodium Chloride Mini Bag 100 ML IVPB ONE ×2 (06:00→08:16)
[2018-01-20] MEDS ORDERED: Naloxone 0.4 MG/ML INJ IVP PRN ×2 (06:43→08:16)
[2018-01-20] MEDS ORDERED: Acetaminophen 325 MG TABLET PO PRN ×3 (06:43→08:16)
[2018-01-20] MEDS ORDERED: Ondansetron 4 MG/2 ML VIAL IVP PRN ×2 (06:43→08:16)
[2018-01-20] MEDS ORDERED: Famotidine 20 MG TABLET PO PRN (08:16)
[2018-01-20] MEDS ORDERED: Albuterol 2.5 MG/3 ML NEBULIZER ONE (09:54)
[2018-01-20] MEDS: Albuterol 2.5 MG/3 ML NEBULIZER IH PRN ×5 (10:03→22:42)
[2018-01-20] MEDS: ONGLYZA PO SCH (10:50)
[2018-01-20] MEDS: Pregabalin 50 MG CAPSULE PO SCH ×2 (11:13→21:47)
[2018-01-20] MEDS: *HR* Rivaroxaban 15 MG TABLET PO SCH (11:14)
--- NOTE | 2018-01-20 12:09 | Internal Med History&Physical ---
Date of Encounter: 01/20/18 Time of Encounter: 11:45 Assessment and Plan (1) Acute bronchitis Current visit: No Status: Acute No evidence of pneumonia on chest x-ray in emergency room. We will give supportive care including antitussives and expectorants without antibiotics at this time. Qualifiers: Bronchitis organism: unspecified organism Qualified Code(s): J20.9 - Acute bronchitis, unspecified (2) Diastolic heart failure Current visit: Yes Status: Chronic Suspect exacerbation due to acute bronchitis. Will give diuretics and reassess in a.m. Qualifiers: Heart failure chronicity: chronic Qualified Code(s): I50.32 - Chronic diastolic (congestive) heart failure (3) Chronic atrial fibrillation Current visit: No Status: Chronic Continue Xarelto. (4) Anemia Current visit: No Status: Acute Workup December 2017 showed no obvious factor deficiency. Will monitor CBC. Qualifiers: Anemia type: unspecified type Qualified Code(s): D64.9 - Anemia, unspecified Internal Medicine - H&P: HPI Chief complaint: Cough and dyspnea Admitted From: Emergency Dept Plans for Post Hospital Care: Home History of present illness: Ms. Hernandez is a 67 year old female who came to emergency room stating she had onset of cough and dyspnea approximately 2 days earlier at the intermediate. She reports cough produced yellow and green sputum but she denies hemoptysis. She had a single episode of vomiting after extended coughing. She denies other GI symptoms. She denies significant pain. She was evaluated in emergency room felt to have respiratory insufficiency with possible pneumonia. She was admitted to [facility] floor for ongoing care needs. She was discharged from [facility] approximately 3 weeks ago to [facility] for ongoing care needs. Her respiratory history is significant for being a lifelong nonsmoker and having no documented chronic lung disease. She does wear oxygen at the intermediate on a when necessary basis. Past Med Surg Social Fam HX - Past Medical History Medical history: asthma, atrial fibrillation, CHF, COPD, CVA, diabetes, hyperlipidemia, hypertension, kidney stones, other Psychiatric history: anxiety, depression - Past Surgical History Surgical History: angioplasty/stent, cataract, cholecystectomy, herniorrhaphy, ureteral stent, other - Social History Smoking Status: Never smoker Smokeless Tobacco Status: No Alcohol use: none Drug use: none Internal Medicine - H&P: Meds Acetaminophen [Tylenol] 650 mg PO Q4HR PRN 12/21/17 [History] Duloxetine HCl [Cymbalta] 60 mg PO QAM 12/21/17 [History] Isosorbide DInitrate [Isosorbide Dinitrate] 30 mg PO BID 12/21/17 [History] Pravastatin Sodium [Pravachol] 40 mg PO HS 12/21/17 [History] Pregabalin [Lyrica] 100 mg PO BID 12/21/17 [History] Ranitidine HCl [Zantac] 150 mg PO BID PRN 12/21/17 [History] Rivaroxaban [Xarelto] 15 mg PO QAM 12/21/17 [History] Saxagliptin HCl [Onglyza] 5 mg PO QAM 12/21/17 [History] Sertraline [Zoloft] 50 mg PO QAM 12/21/17 [History] Aspirin [Lo-Dose Aspirin EC] 81 mg PO Q48H #0 12/26/17 [Rx] Bumetanide [Bumex] 0.5 mg PO Q48H tablet 12/26/17 [Rx] Carvedilol [Coreg] 12.5 mg PO BIDWM tablet 12/26/17 [Rx] 3 Allergy/AdvReac Type Severity Reaction Status Date / Time Penicillins [PCN] Allergy Severe See Verified 01/20/18 04:01 Comments diphenhydramine Allergy See Verified 01/20/18 04:01 Comments All Systems PM: A 10-system review of systems was performed and is negative for pertinent findings except as documented above in the HPI. Review of systems: Review of systems from her December 2017 [facility] hospitalization were reviewed and revised as below. Gen.: Her weight has decreased from 106.957 kg on 01/30/2017 to 102.5 for kg on admission now. Cardiovascular: She has history of hypertension. She has chronic atrial fibrillation and takes Xarelto. She claims a history of heart failure but an echocardiogram done 06/24/2015 showed LVEF of 60-65%. There was indeterminate diastolic function due to atrial fibrillation. No significant valvular abnormalities were seen. She had LAE at 4.2 cm. She had a Regadenoson stress test 04/23/2016 which showed no EKG or perfusion changes to indicate ischemia or infarct. She denies DVT or pulmonary embolus Respiratory: As per history of present illness GI: She has had cholecystectomy. She has GERD and IBS. She claims a colonoscopy done early December 2016 was unremarkable. She denies disorders of her liver or exocrine pancreas : She has chronic kidney disease but has not yet seen a lip reading teacher. She denies other kidney or bladder disorders Neurologic: She claims she has had 5 strokes with the most recent one in 2009. Sequelae include a swallowing deficit and left hemiparesis. She uses a walker for ambulation. She denies seizures. Endocrine: She was diagnosed with DM 2 approximately 2013. Her most recent hemoglobin A1c was 5.8% on 05/18/2017. She has presumed hyperlipidemia and is on Pravachol. She denies thyroid disease but TSH was slightly suppressed at 0.247 on 01/14/2017. Hematology/oncology: She denies blood disorders or cancers. Hemoglobin was low at 10.9 in emergency room. Anemia testing December 2017 admission showed no factor deficiency. Psychiatric: She has a diagnosis of depression but denies anxiety or other mental health issues Musk skeletal: She has DJD but denies gout or other bone joint or muscle disorders. - Constitutional Vitals: Temp Pulse Resp BP Pulse Ox 98.3 F 97 20 122/77 96 01/20/18 10:36 01/20/18 10:36 01/20/18 10:36 01/20/18 10:36 01/20/18 10:36 Exam: Gen.: She is a well-developed morbidly obese female lying in bed who appears in mild respiratory discomfort HEENT: Head is atraumatic and normocephalic. Eyes: EOMI. There is no scleral icterus. Mouth: Mucosa is moist. Neck: Supple and nontender. There is no thyromegaly or adenopathy noted. Heart: Irregularly irregular without murmurs or gallops Lungs: She has scattered rhonchi in both lungs more on the right than the left. No expiratory wheezing is heard. Abdomen: She has a large abdomen. It is nontender to palpation. Extremities: There is no cyanosis edema or clubbing noted. Dorsalis pedis and posttibial pulses are trace palpable bilaterally. Neurologic: Mental status: She is talkative and a good historian. Cranial nerves: Smile is symmetric. Forehead wrinkles bilaterally. Tongue protrudes midline. EOMI. Motor: There is no pronator drift. Cerebellar: Finger to nose is intact bilaterally. Skin: Warm and dry Internal Med - H&P Results - Labs CBC & Chem 7: 01/20/18 05:15 01/20/18 05:15
[2018-01-20] MEDS ORDERED: Bumetanide 1 MG/4 ML VIAL IVP ONE ×2 (12:20→16:55)
[2018-01-20] MEDS: methylPREDNISolone 125 MG/2 ML VIAL IVP SCH (17:24)
[2018-01-20] MEDS ORDERED: Dextrose Gel 15 GM PO PRN ×2 (17:38)
[2018-01-20] MEDS ORDERED: *HR* Dextrose 50 % in Water (Syg) 50 ML SYRINGE IVP PRN (17:38)
[2018-01-20] MEDS ORDERED: D5% in Water 1,000 ML IVC PRN (17:38)
[2018-01-20] MEDS: Budesonide/Formoterol 160/4.5 MDI IH SCH ×2 (17:50→22:42)
[2018-01-20] MEDS: Insulin LISPRO 300 UNITS/3 ML VIAL SQ SCH (21:48)
[2018-01-20 22:26] LABS: Bilirubin,Urine Negative (Negative); Blood,Urine Small (Negative); Clarity,Urine Slightly Cloudy (Clear); Glucose,Urine (UA) Normal (Normal); Ketones,Urine Negative (Negative); Leukocyte Esterase,Urine Large (Negative); Nitrite,Urine Negative (Negative); Protein,Urine Negative (Neg-Trace); Specific Gravity,Urine <= 1.005 (1.010-1.025); Urobilinogen,Urine Normal (Normal)
[2018-01-20 22:29] LABS: Color,Urine Light Yellow (Yellow)
[2018-01-20 22:38] LABS: Hyaline Casts,Urine Few per lpf (None-Few); RBC,Urine 0-3 per hpf (0-3); Squamous Epithelial Cell,Urine Moderate per lpf (None-Few); WBC,Urine 30-50 per hpf (0-3)
[2018-01-20 22:39] LABS: Bacteria,Urine Moderate per hpf (None-Few)
[2018-01-21] MEDS: methylPREDNISolone 125 MG/2 ML VIAL IVP SCH ×3 (04:25→17:19)
[2018-01-21 05:19] LABS: Basophils % 0.1 %; Hematocrit 36.6 % (35.3-44.9); Hemoglobin 11.8 g/dL (11.5-15.4); Immature Granulocytes % 0.5 % (0-4); Lymphocytes # 0.9 K/mcL (0.6-4.6); Lymphocytes % 10.1 %; Mean Corpuscular HGB Conc 32.2 g/dL (31.6-35.5); Mean Corpuscular Hemoglobin 29.7 pg (28.0-33.3); Mean Corpuscular Volume 92.2 fL (83.0-100.0); Monocytes # 0.1 K/mcL (0.0-1.3); Monocytes % 1.7 %; Neutrophils # 7.4 K/mcL (1.6-8.9); Platelet Count 166 K/mcL (140-400); Red Blood Count 3.97 M/mcL (3.82-4.97); Red Cell Distribution Width 14.4 % (11.5-14.5); Segmented Neutrophils % 87.6 %
[2018-01-21 05:40] LABS: BUN/Creatinine Ratio 14 (6-26); Blood Urea Nitrogen 15 mg/dL (8-23); Calcium 8.8 mg/dL (8.6-10.3); Carbon Dioxide 30 mEq/L (23-29); Chloride 102 mEq/L (98-107); Glucose 242 mg/dL (70-105); Osmolality,Calculated 301 (280-300); Sodium 141 mEq/L (136-145); eGFR For African Americans > 60 (> 60); eGFR For Non-African Americans 50 (> 60)
[2018-01-21] MEDS: Albuterol 2.5 MG/3 ML NEBULIZER IH PRN ×5 (06:47→20:56)
[2018-01-21] MEDS: Insulin LISPRO 300 UNITS/3 ML VIAL SQ SCH ×3 (07:54→17:19)
[2018-01-21] MEDS: Aspirin Enteric Coated 81 MG Tablet PO SCH (07:59)
[2018-01-21] MEDS: *HR* Rivaroxaban 15 MG TABLET PO SCH (08:01)
[2018-01-21] MEDS: ONGLYZA PO SCH (08:01)
[2018-01-21] MEDS: Pregabalin 50 MG CAPSULE PO SCH ×2 (08:01→21:16)
[2018-01-21] MEDS: Budesonide/Formoterol 160/4.5 MDI IH SCH ×2 (08:43→20:56)
[2018-01-21] MEDS ORDERED: Bumetanide 1 MG TABLET PO SCH (09:00)
--- NOTE | 2018-01-21 10:08 | Internal Med Progress Note ---
Date of Encounter: 01/21/18 Time of Encounter: 10:00 - Assessment and plan (1) Acute bronchitis Current Visit: No Status: Acute Assessment and plan: January 21. Continue present regimen. Qualifiers: Bronchitis organism: unspecified organism Qualified Code(s): J20.9 - Acute bronchitis, unspecified (2) Diastolic heart failure Current Visit: Yes Status: Chronic Assessment and plan: January 21. BN peptide improved to 240. Continue present regimen. Qualifiers: Heart failure chronicity: chronic Qualified Code(s): I50.32 - Chronic diastolic (congestive) heart failure (3) Chronic atrial fibrillation Current Visit: No Status: Chronic Assessment and plan: January 21. Continue Xarelto. (4) Anemia Current Visit: No Status: Acute Assessment and plan: January 21. We will monitor CBC. Qualifiers: Anemia type: unspecified type Qualified Code(s): D64.9 - Anemia, unspecified - Subjective Interval history: January 21. She has no new complaints and feels better. She reports she is still coughing with yellow-green sputum production. - Constitutional Vitals: Temp Pulse Resp BP Pulse Ox 97.9 F 80 18 145/72 96 01/21/18 07:51 01/21/18 07:51 01/21/18 08:44 01/21/18 07:51 01/21/18 08:44 Exam: She is resting in bed and appears slightly less dyspneic than yesterday. Her speech is appropriate. I reviewed her medications and lab results. Internal Medicine: Result - Labs CBC & Chem 7: 01/21/18 04:55 01/21/18 04:55 Labs: Short CBC 01/21/18 Range/Units 04:55 WBC 8.4 (4.3-11.1) K/mcL Hgb 11.8 (11.5-15.4) g/dL Hct 36.6 (35.3-44.9) % Plt Count 166 (140-400) K/mcL Neutrophils # 7.4 (1.6-8.9) K/mcL BMP 01/21/18 04:55 Sodium 141 Potassium 4.0 Chloride 102 Carbon Dioxide 30 H BUN 15 Creatinine 1.09 Glucose 242 H Calcium 8.8 Urine 01/20/18 Range/Units 21:45 Urine Color Light Yellow (Yellow) Urine Clarity Slightly Cloudy A (Clear) Urine pH 5.0 (5.0-8.0) pH Units Ur Specific Outing <= 1.005 L (1.010-1.025) Urine Protein Negative (Neg-Trace) mg/dL Urine Glucose (UA) Normal (Normal) mg/dL - ABG Interpretation ABG results: ABG ABG pH 7.33 pH Units (7.32-7.45) 01/20/18 05:02 ABG pCO2 54 mmHg (35-45) H 01/20/18 05:02 ABG pO2 98 mmHg (85-104) 01/20/18 05:02 ABG O2 Saturation 97 % (95-98) 01/20/18 05:02 Consult Discharge Plan - Plan Referrals: Collin Martins MD [Primary Care Provider] - 1 week
[2018-01-21] MEDS: Bumetanide 1 MG TABLET PO SCH (11:29)
[2018-01-22] MEDS: Insulin LISPRO 300 UNITS/3 ML VIAL SQ SCH ×5 (00:58→21:27)
[2018-01-22] MEDS: methylPREDNISolone 125 MG/2 ML VIAL IVP SCH ×3 (02:26→17:20)
[2018-01-22] MEDS: Albuterol 2.5 MG/3 ML NEBULIZER IH PRN ×3 (05:43→20:06)
[2018-01-22] MEDS ORDERED: Bumetanide 1 MG TABLET PO SCH (09:00)
[2018-01-22] MEDS: Budesonide/Formoterol 160/4.5 MDI IH SCH ×2 (09:15→20:06)
[2018-01-22] MEDS: *HR* Rivaroxaban 15 MG TABLET PO SCH (09:41)
[2018-01-22] MEDS: Bumetanide 1 MG TABLET PO SCH (09:43)
[2018-01-22] MEDS: Pregabalin 50 MG CAPSULE PO SCH ×2 (09:44→21:25)
[2018-01-22] MEDS: ONGLYZA PO SCH (09:45)
--- NOTE | 2018-01-22 11:28 | Internal Med Progress Note ---
Date of Encounter: 01/22/18 Time of Encounter: 11:15 - Assessment and plan (1) Acute bronchitis Current Visit: No Status: Acute Assessment and plan: January 21. Continue present regimen. Qualifiers: Bronchitis organism: unspecified organism Qualified Code(s): J20.9 - Acute bronchitis, unspecified (2) Diastolic heart failure Current Visit: Yes Status: Chronic Assessment and plan: January 21. BN peptide improved to 240. Continue present regimen. January 22. Bumex was increased to 0.5 mg daily. Continue Coreg and isosorbide. Qualifiers: Heart failure chronicity: chronic Qualified Code(s): I50.32 - Chronic diastolic (congestive) heart failure (3) Chronic atrial fibrillation Current Visit: No Status: Chronic Assessment and plan: January 21. Continue Xarelto. (4) Anemia Current Visit: No Status: Acute Assessment and plan: January 21. We will monitor CBC. Qualifiers: Anemia type: unspecified type Qualified Code(s): D64.9 - Anemia, unspecified - Subjective Interval history: January 21. She has no new complaints and feels better. She reports she is still coughing with yellow-green sputum production. January 22. She has no new complaints and states she feels better. - Constitutional Vitals: Temp Pulse Resp BP Pulse Ox 98.4 F 90 20 115/70 94 01/22/18 11:09 01/22/18 11:09 01/22/18 11:09 01/22/18 11:09 01/22/18 11:09 Exam: She is resting in bed. She appears slightly dyspneic. She has mild audible wheezing without use of stethoscope. I reviewed her medications and lab results. Internal Medicine: Result - Labs CBC & Chem 7: 01/21/18 04:55 01/21/18 04:55 - ABG Interpretation ABG results: ABG ABG pH 7.33 pH Units (7.32-7.45) 01/20/18 05:02 ABG pCO2 54 mmHg (35-45) H 01/20/18 05:02 ABG pO2 98 mmHg (85-104) 01/20/18 05:02 ABG O2 Saturation 97 % (95-98) 01/20/18 05:02 Consult Discharge Plan - Plan Referrals: Collin Martins MD [Primary Care Provider] - 1 week
[2018-01-23] MEDS: Albuterol 2.5 MG/3 ML NEBULIZER IH PRN ×2 (00:18→08:47)
[2018-01-23] MEDS: methylPREDNISolone 125 MG/2 ML VIAL IVP SCH ×2 (01:01→08:26)
[2018-01-23 06:48] LABS: Basophils % 0.1 %; Hematocrit 37.3 % (35.3-44.9); Hemoglobin 12.3 g/dL (11.5-15.4); Immature Granulocytes % 0.8 % (0-4); Mean Corpuscular Hemoglobin 29.9 pg (28.0-33.3); Mean Corpuscular Volume 90.5 fL (83.0-100.0); Mean Platelet Volume 11.2 fL (9.4-12.4); Monocytes # 0.1 K/mcL (0.0-1.3); Monocytes % 0.8 %; Neutrophils # 13.2 K/mcL (1.6-8.9); Platelet Count 177 K/mcL (140-400); Red Blood Count 4.12 M/mcL (3.82-4.97); Red Cell Distribution Width 13.8 % (11.5-14.5); Segmented Neutrophils % 91.3 %
[2018-01-23 07:01] VITALS: BP 163/90
[2018-01-23 07:06] LABS: BUN/Creatinine Ratio 34 (6-26); Blood Urea Nitrogen 31 mg/dL (8-23); Calcium 8.8 mg/dL (8.6-10.3); Carbon Dioxide 30 mEq/L (23-29); Chloride 101 mEq/L (98-107); Glucose 279 mg/dL (70-105); Osmolality,Calculated 303 (280-300); Sodium 138 mEq/L (136-145); eGFR For African Americans > 60 (> 60); eGFR For Non-African Americans > 60 (> 60)
[2018-01-23] MEDS: ONGLYZA PO SCH (08:01)
[2018-01-23] MEDS: Bumetanide 1 MG TABLET PO SCH (08:22)
[2018-01-23] MEDS: Aspirin Enteric Coated 81 MG Tablet PO SCH (08:24)
[2018-01-23] MEDS: Pregabalin 50 MG CAPSULE PO SCH (08:25)
[2018-01-23] MEDS: *HR* Rivaroxaban 15 MG TABLET PO SCH (08:25)
[2018-01-23] MEDS: Insulin LISPRO 300 UNITS/3 ML VIAL SQ SCH (08:29)
[2018-01-23] MEDS: Budesonide/Formoterol 160/4.5 MDI IH SCH (08:44)
[2018-01-23] MEDS ORDERED: levoFLOXacin 500 MG TABLET PO ONE (09:17)
--- NOTE | 2018-01-23 09:17 | Discharge Summary ---
Date of Encounter: 01/23/18 Time of Encounter: 09:05 - Discharge Diagnosis (1) Acute bronchitis Priority: Primary Status: Acute Qualifiers: Bronchitis organism: unspecified organism Qualified Code(s): J20.9 - Acute bronchitis, unspecified (2) Diastolic heart failure Priority: Secondary Status: Chronic Qualifiers: Heart failure chronicity: chronic Qualified Code(s): I50.32 - Chronic diastolic (congestive) heart failure (3) Chronic atrial fibrillation Priority: Secondary Status: Chronic (4) Anemia Priority: Secondary Status: Acute Qualifiers: Anemia type: unspecified type Qualified Code(s): D64.9 - Anemia, unspecified Hospital course: Ms. Hernandez is a 67 year old female who came to emergency room stating she had onset of cough and dyspnea approximately 2 days earlier at the longterm. She reports cough produced yellow and green sputum but she denies hemoptysis. She had a single episode of vomiting after extended coughing. She denies other GI symptoms. She denies significant pain. She was evaluated in emergency room felt to have respiratory insufficiency with possible pneumonia. She was admitted to [facility] for ongoing care needs. Initial orders were written by the emergency room physician. I saw her on January 20 and performed a history and physical. She was given antitussives and expectorants for acute bronchitis. IV steroids were added for asthmatic component. She had gradual improvement in her dyspnea. WBC count louie to 14.5 on January 23 with left shift. I felt was reasonable to give her short course of antibiotics. She will be given Levaquin prior to discharge and continue Levaquin and probiotic for 3 additional days at the longterm with oral steroids. She was started on Symbicort and this will be continued after discharge. Additional Bumex was given and her BN peptide improved to 208. On January 23 I felt she was stable for discharge to [facility] where she will follow with me. - Time Spent with Patient Total time spent providing and/or coordinating discharge services: - Discharge Medications Prescriptions: Lactobacillus [Culturelle] 1 each PO BID 3 Days cap.sprink levoFLOXacin [Levaquin] 500 mg PO DAILY 3 Days tablet predniSONE [PredniSONE] 10 mg PO BIDWM 3 Days tablet Home Medications: Acetaminophen [Tylenol] 650 mg PO Q4HR PRN 12/21/17 [History] Duloxetine HCl [Cymbalta] 60 mg PO QAM 12/21/17 [History] Isosorbide DInitrate [Isosorbide Dinitrate] 30 mg PO BID 12/21/17 [History] Pravastatin Sodium [Pravachol] 40 mg PO HS 12/21/17 [History] Pregabalin [Lyrica] 100 mg PO BID 12/21/17 [History] Ranitidine HCl [Zantac] 150 mg PO BID PRN 12/21/17 [History] Rivaroxaban [Xarelto] 15 mg PO QAM 12/21/17 [History] Saxagliptin HCl [Onglyza] 5 mg PO QAM 12/21/17 [History] Sertraline [Zoloft] 50 mg PO QAM 12/21/17 [History] Aspirin [Lo-Dose Aspirin EC] 81 mg PO Q48H #0 12/26/17 [Rx] Bumetanide [Bumex] 0.5 mg PO Q48H tablet 12/26/17 [Rx] Carvedilol [Coreg] 12.5 mg PO BIDWM tablet 12/26/17 [Rx] Budesonide/Formoterol 160/4.5 [Symbicort 160/4.5] 2 puff IH BIDR inhaler [Rx] GuaiFENesin/Dextromethorphan [Robitussin/Dm] 10 ml PO Q6HR PRN 5 Days udc 01/23 [Rx] Lactobacillus [Culturelle] 1 each PO BID 3 Days cap.sprink 01/23/18 [Rx] levoFLOXacin [Levaquin] 500 mg PO DAILY 3 Days tablet 01/23/18 [Rx] predniSONE [PredniSONE] 10 mg PO BIDWM 3 Days tablet 01/23/18 [Rx] Allergies/Adverse Reactions: 3 Allergy/AdvReac Type Severity Reaction Status Date / Time Penicillins [PCN] Allergy Severe See Verified 01/20/18 04:01 Comments diphenhydramine Allergy See Verified 01/20/18 04:01 Comments Date of admission: 01/20/18 07:15 Primary care physician: Collin Martins MD - Constitutional Vitals: Temp Pulse Resp BP Pulse Ox 97.6 F 82 18 163/90 94 01/23/18 07:00 01/23/18 07:00 01/23/18 07:00 01/23/18 07:00 01/23/18 07:00 - Patient Status Disposition: Transfer SNF Condition: Fair Overall status at discharge: patient is progressing back to baseline - Discharge Instructions - Diet and Activity Activity: resume usual activities as tolerated Diet: advance to your usual diet
--- NOTE | 2018-01-23 09:25 | Physician Discharge Referral ---
ExtendedCare Referral Info Transfer To: [place] Provider in Charge: Eliezer Provider in Charge after Transfer: PCP [place]) Institutional Level of Care: Skilled - Diagnosis (1) Acute bronchitis Priority: Primary Status: Acute (2) Diastolic heart failure Priority: Secondary Status: Chronic (3) Chronic atrial fibrillation Priority: Secondary Status: Chronic (4) Anemia Priority: Secondary Status: Acute Aware of Diagnosis: Patient Aware of Prognosis: Patient - Transfer Medications Prescriptions: Lactobacillus [Culturelle] 1 each PO BID 3 Days cap.sprink levoFLOXacin [Levaquin] 500 mg PO DAILY 3 Days tablet predniSONE [PredniSONE] 10 mg PO BIDWM 3 Days tablet Home Medications: Acetaminophen [Tylenol] 650 mg PO Q4HR PRN 12/21/17 [History] Duloxetine HCl [Cymbalta] 60 mg PO QAM 12/21/17 [History] Isosorbide DInitrate [Isosorbide Dinitrate] 30 mg PO BID 12/21/17 [History] Pravastatin Sodium [Pravachol] 40 mg PO HS 12/21/17 [History] Pregabalin [Lyrica] 100 mg PO BID 12/21/17 [History] Ranitidine HCl [Zantac] 150 mg PO BID PRN 12/21/17 [History] Rivaroxaban [Xarelto] 15 mg PO QAM 12/21/17 [History] Saxagliptin HCl [Onglyza] 5 mg PO QAM 12/21/17 [History] Sertraline [Zoloft] 50 mg PO QAM 12/21/17 [History] Aspirin [Lo-Dose Aspirin EC] 81 mg PO Q48H #0 12/26/17 [Rx] Bumetanide [Bumex] 0.5 mg PO Q48H tablet 12/26/17 [Rx] Carvedilol [Coreg] 12.5 mg PO BIDWM tablet 12/26/17 [Rx] Budesonide/Formoterol 160/4.5 [Symbicort 160/4.5] 2 puff IH BIDR inhaler [Rx] GuaiFENesin/Dextromethorphan [Robitussin/Dm] 10 ml PO Q6HR PRN 5 Days udc 01/23 [Rx] Lactobacillus [Culturelle] 1 each PO BID 3 Days cap.sprink 01/23/18 [Rx] levoFLOXacin [Levaquin] 500 mg PO DAILY 3 Days tablet 01/23/18 [Rx] predniSONE [PredniSONE] 10 mg PO BIDWM 3 Days tablet 01/23/18 [Rx] Allergies/Adverse Reactions: 3 Allergy/AdvReac Type Severity Reaction Status Date / Time Penicillins [PCN] Allergy Severe See Verified 01/20/18 04:01 Comments diphenhydramine Allergy See Verified 01/20/18 04:01 Comments - Respiratory Orders Oxygen / L per min (2 L/m by nasal cannula when necessary to keep sat greater than 90%.) Smoking Cessation: Smoking cessation has been advised. For more information, call the [place] Tobacco Quit Line at 0-089-TKMK-NOW. - Lab Orders Lab Orders: Other (include drug levels w/frequency) (CBC with differential, bn peptide, BMP in 5 days) - Rehabiliation Orders Rehab Potential: Fair Rehab Orders: Evaluation for Physical Therapy, Evaluation for Occupational Therapy CERTIFICATION: I certify that the transfer of the above named patient to an Extended Care Facility is necessary for the continuing treatment of the diagnosis listed. The above information is true and accurate reflection of patient's current condition. Confidential - Redisclosure prohibited without a patient's written consent.
--- NOTE | 2018-01-23 09:38 | Electrocardiograph Report ---
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
== END 2018-01-23 11:00 ==
LOC: EMEROOPIK 04:41 → INPPIK 04:41
PROVIDERS: ADMIT Internal Medicine; ATTEND Internal Medicine

== ENCOUNTER 2018-03-23 18:07 | Observation (INO) ==
--- NOTE | 2018-03-23 18:23 | Emergency Department Note ---
Disposition Clinical Impression: Weakness Urinary tract infection Qualifiers: Urinary tract infection type: acute cystitis Hematuria presence: without hematuria Qualified Code(s): N30.00 - Acute cystitis without hematuria Disposition: Admitted As Inpatient Condition: Fair Forms: ED Satisfaction Letter Female Urogenital HPI - General Chief complaint: ED Urogenital-Female Stated complaint: UTI Time Seen by Provider: 03/23/18 18:16 Source: patient, EMS Mode of arrival: EMS Limitations: no limitations Nursing Notes Reviewed: Yes Vital Signs Reviewed: Yes - History of Present Illness HPI Narrative: Patient was seen earlier this afternoon with weakness and a urinary tract infection. She is insistent on going home but the transport squad find nobody there to care for her or to even get her inside to get her back on her oxygen. She declined observation earlier but is agreeable to staying at this time. She denies any other new changes to her symptoms. She denies headache, visual changes, chest pain or palpitation. She has not been having vomiting, diarrhea , abdominal pain or bloody or black stool. She has a feeling of weakness. Her speech is still little slurred but appropriate. Pt Subjective Complaint: dysuria, other (Weakness) Onset (ago): day(s) Location: suprapubic Radiation: non-radiating Severity: mild Duration: intermittent Improves with: none Worsens with: urination Urinary Symptoms: dysuria, frequency, no urgency, no hematuria - Related Data Home Medications Medication Instructions Recorded Confirmed Acetaminophen [Tylenol] 650 mg PO Q4HR PRN 12/21/17 03/23/18 Duloxetine HCl [Cymbalta] 60 mg PO QAM 12/21/17 03/23/18 Isosorbide DInitrate [Isosorbide 30 mg PO BID 12/21/17 03/23/18 Dinitrate] Pravastatin Sodium [Pravachol] 40 mg PO HS 12/21/17 03/23/18 Ranitidine HCl [Zantac] 150 mg PO BID PRN 12/21/17 03/23/18 Rivaroxaban [Xarelto] 15 mg PO QAM 12/21/17 03/23/18 Saxagliptin HCl [Onglyza] 5 mg PO QAM 12/21/17 03/23/18 Albuterol Sulfate [Albuterol 180 mcg Q6HR 03/23/18 03/23/18 Inhaler] Carvedilol [Coreg] 25 mg PO BID 03/23/18 03/23/18 Dicyclomine [Bentyl] 20 mg PO QID 03/23/18 03/23/18 Methocarbamol [Robaxin-750] 750 mg PO TID 03/23/18 03/23/18 Pantoprazole Sodium [Protonix] 40 mg PO DAILY 03/23/18 03/23/18 Previous Rx's Medication Instructions Recorded Aspirin [Lo-Dose Aspirin EC] 81 mg PO Q48H #0 12/26/17 Bumetanide [Bumex] 0.5 mg PO Q48H tablet 12/26/17 Budesonide/Formoterol 160/4.5 2 puff IH BIDR inhaler 01/23/18 [Symbicort 160/4.5] GuaiFENesin/Dextromethorphan 10 ml PO Q6HR PRN 5 Days udc 01/23/18 [Robitussin/Dm] Lactobacillus [Culturelle] 1 each PO BID 3 Days cap.sprink 01/23/18 Allergies Allergy/AdvReac Type Severity Reaction Status Date / Time Penicillins [PCN] Allergy Severe See Verified 01/20/18 04:01 Comments diphenhydramine Allergy See Verified 01/20/18 04:01 Comments All systems ED: reviewed and negative except as stated. Past Medical History - Past Medical History Attestation: Yes The following information was validated with the patient. Source: patient, old records reviewed, obtained from family, nursing notes reviewed Medical history: Reports: asthma, atrial fibrillation, CHF, COPD, CVA, diabetes , hyperlipidemia, hypertension, kidney stones, other Surgical history: Reports: angioplasty/stent, cataract, cholecystectomy, herniorrhaphy, ureteral stent, other Psychiatric history: Reports: anxiety, depression - Social History Smoking Status: Never smoker Smokeless Tobacco Status: No Alcohol use: Reports: none Drug use: Reports: none Physical Exam - General Limitations: no limitations General appearance: alert, in no apparent distress - Head Head exam: atraumatic, normocephalic, normal inspection - Eye Eye exam: Present: normal appearance, PERRL, EOMI. Absent: conjunctival injection - ENT ENT exam: normal exam, normal oropharynx, mucous membranes moist - Neck Neck exam: Present: normal inspection, full ROM, trachea midline - Chest Chest inspection: Present: normal inspection, symmetric chest wall rise - Respiratory Respiratory exam: Present: normal lung sounds bilaterally. Absent: respiratory distress, wheezes, prolonged expiratory phase - Cardiovascular Cardiovascular exam: Present: regular rate, normal rhythm, normal heart sounds. Absent: tachycardia - Abdominal Exam Abdominal exam: Present: soft, Non-Tender, normal bowel sounds. Absent: tenderness, distention, guarding, rebound, rigidity - Extremities Exam Extremities exam: Present: normal inspection, full ROM, normal capillary refill. Absent: tenderness, pedal edema - Expanded Lower Extremity Exam Neurovascular/Tendon exam: Present: normal capillary refill. Absent: motor deficit, sensory deficit, tendon deficit Gait: not tested/not observed - Back Exam Back exam: Present: normal inspection, full ROM. Absent: tenderness, CVA tenderness (R), CVA tenderness (L) - Neurological Exam Neurological exam: Present: alert, oriented X3. Absent: motor sensory deficit - Psychiatric Psychiatric exam: Present: normal affect, normal mood - Skin Skin exam: Present: warm, dry, intact, normal color. Absent: diaphoresis, pallor Course Course Narrative: 1814: I spoke with Dr. Martins who is agreeable with observation of this patient. The patient has artery received Rocephin. Verbal orders are obtained for continuation of inpatient care. Vital Signs Temperature 98.4 F 03/23/18 18:07 Pulse Rate 74 03/23/18 18:07 Respiratory Rate 16 03/23/18 18:07 Blood Pressure 101/70 03/23/18 18:07 O2 Sat by Pulse Oximetry 98 03/23/18 18:07 Temperature 98.4 F 03/23/18 18:07 Pulse Rate 74 03/23/18 18:07 Respiratory Rate 16 03/23/18 18:07 Blood Pressure 101/70 03/23/18 18:07 O2 Sat by Pulse Oximetry 98 03/23/18 18:07 Oxygen Delivery Oxygen Delivery Nasal Cannula Urogenital-Female - Differential Diagnosis Likely: urinary tract infection - Medical Records Medical records reviewed: Yes I reviewed the patient's medical records.
[2018-03-23] MEDS ORDERED: Naloxone 0.4 MG/ML INJ IVP PRN (20:15)
[2018-03-24] MEDS: 0.9 % Sodium Chloride 1,000 ML IVC SCH ×2 (01:22→08:54)
[2018-03-24] MEDS: cefTRIAXone 1,000 MG in Water for inj. (sterile) 20 ML 10 ML IVPB SCH (08:56)
--- NOTE | 2018-03-24 10:25 | Internal Med History&Physical ---
Date of Encounter: 03/24/18 Time of Encounter: 10:00 Assessment and Plan (1) UTI (urinary tract infection) Current visit: Yes Status: Acute She was started on Rocephin in emergency room. We will continue this with lactobacillus. Qualifiers: Urinary tract infection type: acute cystitis Hematuria presence: without hematuria Qualified Code(s): N30.00 - Acute cystitis without hematuria (2) Weakness Current visit: Yes Status: Acute Will order PT and OT evaluation. (3) Chronic atrial fibrillation Current visit: No Status: Chronic Continue Xarelto (4) Diabetes mellitus Current visit: No Status: Chronic Hemoglobin A1c was 5.8% on 12/31/2017. Continue Onglyza. Qualifiers: Diabetes mellitus type: type 2 Diabetes mellitus penitentiary insulin use: without penitentiary use Diabetes mellitus complication status: with kidney complications Diabetes mellitus complication detail: with chronic kidney disease Chronic kidney disease stage: stage 3 (moderate) Qualified Code(s): E11.22 - Type 2 diabetes mellitus with diabetic chronic kidney disease; N18.3 - Chronic kidney disease, stage 3 (moderate) (5) Hypertension Current visit: No Status: Chronic Continue Coreg and isosorbide Qualifiers: Hypertension type: essential hypertension Qualified Code(s): I10 - Essential (primary) hypertension (6) Hypokalemia Current visit: Yes Status: Acute Will order potassium supplementation. Internal Medicine - H&P: HPI Chief complaint: Weakness, UTI Admitted From: Emergency Dept Plans for Post Hospital Care: Home History of present illness: Ms. Hernandez is a 67 year old female who returned to emergency room with complaints of weakness after having been seen a few hours earlier and was diagnosed with UTI. She declined admission but after returning home felt she needed to return to ER. She was admitted to [facility] floor for ongoing care needs. She was hospitalized at [facility] approximately 2 months ago with bronchitis. She was discharged to [facility] where she remained until approximately 10 days ago. She has chronic kidney disease stage III but has not seen a cash applications analyst. She denies other kidney or bladder disorders. Past Med Surg Social Fam HX - Past Medical History Medical history: asthma, atrial fibrillation, CHF, COPD, CVA, diabetes, hyperlipidemia, hypertension, kidney stones, other Psychiatric history: anxiety, depression - Past Surgical History Surgical History: angioplasty/stent, cataract, cholecystectomy, herniorrhaphy, ureteral stent, other - Social History Smoking Status: Never smoker Smokeless Tobacco Status: No Alcohol use: none Drug use: none Internal Medicine - H&P: Meds Acetaminophen [Tylenol] 650 mg PO Q4HR PRN 12/21/17 [History] Duloxetine HCl [Cymbalta] 60 mg PO QAM 12/21/17 [History] Isosorbide DInitrate [Isosorbide Dinitrate] 30 mg PO BID 12/21/17 [History] Pravastatin Sodium [Pravachol] 40 mg PO HS 12/21/17 [History] Ranitidine HCl [Zantac] 150 mg PO BID PRN 12/21/17 [History] Rivaroxaban [Xarelto] 15 mg PO QAM 12/21/17 [History] Saxagliptin HCl [Onglyza] 5 mg PO QAM 12/21/17 [History] Aspirin [Lo-Dose Aspirin EC] 81 mg PO Q48H #0 12/26/17 [Rx] Bumetanide [Bumex] 0.5 mg PO Q48H tablet 12/26/17 [Rx] Budesonide/Formoterol 160/4.5 [Symbicort 160/4.5] 2 puff IH BIDR inhaler [Rx] GuaiFENesin/Dextromethorphan [Robitussin/Dm] 10 ml PO Q6HR PRN 5 Days udc 01/23 [Rx] Lactobacillus [Culturelle] 1 each PO BID 3 Days cap.sprink 01/23/18 [Rx] Albuterol Sulfate [Albuterol Inhaler] 180 mcg Q6HR 03/23/18 [History] Carvedilol [Coreg] 25 mg PO BID 03/23/18 [History] Dicyclomine [Bentyl] 20 mg PO QID 03/23/18 [History] Methocarbamol [Robaxin-750] 750 mg PO TID 03/23/18 [History] Pantoprazole Sodium [Protonix] 40 mg PO DAILY 03/23/18 [History] 3 Allergy/AdvReac Type Severity Reaction Status Date / Time Penicillins [PCN] Allergy Severe See Verified 01/20/18 04:01 Comments diphenhydramine Allergy See Verified 01/20/18 04:01 Comments All Systems PM: A 10-system review of systems was performed and is negative for pertinent findings except as documented above in the HPI. Review of systems: Review of systems from her December 2017 [facility] hospitalization were reviewed and revised as below. Gen.: Her weight has decreased from 106.957 kg on 01/30/2017 to 93.44 kg on admission now. Cardiovascular: She has history of hypertension. She has chronic atrial fibrillation and takes Xarelto. She claims a history of heart failure but an echocardiogram done 06/24/2015 showed LVEF of 60-65%. There was indeterminate diastolic function due to atrial fibrillation. No significant valvular abnormalities were seen. She had LAE at 4.2 cm. She had a Regadenoson stress test 04/23/2016 which showed no EKG or perfusion changes to indicate ischemia or infarct. She denies DVT or pulmonary embolus Respiratory: She is a lifelong nonsmoker and has no documented chronic lung disease. She uses her 's oxygen at home for dyspnea. GI: She has had cholecystectomy. She has GERD and IBS. She claims a colonoscopy done early December 2016 was unremarkable. She denies disorders of her liver or exocrine pancreas : As per history of present illness Neurologic: She claims she has had 5 strokes with the most recent one in 2009. Sequelae include a swallowing deficit and left hemiparesis. She uses a walker for ambulation. She denies seizures. Endocrine: She was diagnosed with DM 2 approximately 2013. Her most recent hemoglobin A1c was 5.8% on 12/26/2017. She has presumed hyperlipidemia and is on Pravachol. She has no documented thyroid disease. Hematology/oncology: She denies blood disorders or cancers. She has had anemia in the past. Anemia testing December 2017 admission showed no factor deficiency. Psychiatric: She has a diagnosis of depression but denies anxiety or other mental health issues Musk skeletal: She has DJD but denies gout or other bone joint or muscle disorders. - Constitutional Vitals: Temp Pulse Resp BP Pulse Ox 98.5 F 68 19 123/61 97 03/24/18 06:22 03/24/18 06:22 03/24/18 06:22 03/24/18 06:22 03/24/18 06:22 Exam: Gen.: She is well-developed overweight female lying in bed who appears weak. She denies pain or dyspnea HEENT: Head is atraumatic and normocephalic. Eyes: EOMI. There is no scleral icterus. Mouth: She has slight flattening of the left nasolabial full. Mucosa is dry. Neck: Supple and nontender. There is no thyromegaly or adenopathy noted. Heart: Irregularly irregular without murmurs or gallops Lungs: No wheezes or crackles are heard. Abdomen: Soft and nontender. No masses or guarding are noted. Extremities: There is no cyanosis or clubbing noted. She has trace to 1+ edema of the dorsum of the foot and lower anterior stern on the left. Right foot shows no edema. Neurologic: Mental status: She is able to answer questions but is dyspneic on conversation. Cranial nerves: There is flattening of the left nasolabial fold. Tongue protrudes midline forehead wrinkles bilaterally. EOMI. Motor: She cannot pronate the left arm. The right arm pronates normally. There is no pronator drift. Cerebellar: Finger to nose is intact bilaterally. Skin: Warm and dry
[2018-03-24] MEDS ORDERED: Albuterol 2.5 MG/3 ML NEBULIZER IH PRN (10:53)
[2018-03-24] MEDS ORDERED: Bumetanide 1 MG TABLET PO SCH (12:00)
[2018-03-24] MEDS: Budesonide/Formoterol 160/4.5 MDI IH SCH ×2 (12:31→22:15)
[2018-03-24] MEDS: *HR* Rivaroxaban 15 MG TABLET PO SCH (17:08)
[2018-03-24] MEDS: ALPRAZolam 0.5 MG TABLET PO PRN (18:48)
[2018-03-24] MEDS: Lactobacillus 1 EACH CAP.SPRINK PO SCH (21:05)
[2018-03-25 06:10] LABS: Basophils % 0.4 %; Eosinophils # 0.3 K/mcL (0.0-0.6); Hemoglobin 11.1 g/dL (11.5-15.4); Immature Granulocytes % 0.1 % (0-4); Lymphocytes % 28.6 %; Mean Corpuscular HGB Conc 31.7 g/dL (31.6-35.5); Mean Corpuscular Volume 91.4 fL (83.0-100.0); Monocytes # 0.7 K/mcL (0.0-1.3); Monocytes % 9.4 %; Platelet Count 192 K/mcL (140-400); Red Blood Count 3.83 M/mcL (3.82-4.97); Red Cell Distribution Width 13.9 % (11.5-14.5); Segmented Neutrophils % 57.5 %
[2018-03-25 06:41] LABS: BUN/Creatinine Ratio 12 (6-26); Blood Urea Nitrogen 9 mg/dL (8-23); Calcium 8.5 mg/dL (8.6-10.3); Carbon Dioxide 33 mEq/L (23-29); Chloride 104 mEq/L (98-107); Glucose 126 mg/dL (70-105); Osmolality,Calculated 290 (280-300); Potassium 3.6 mEq/L (3.5-5.1); Sodium 140 mEq/L (136-145); eGFR For African Americans > 60 (> 60); eGFR For Non-African Americans > 60 (> 60)
[2018-03-25] MEDS: Lactobacillus 1 EACH CAP.SPRINK PO SCH ×2 (08:00→20:39)
[2018-03-25] MEDS ORDERED: Aspirin 81 MG TAB.CHEW PO SCH (09:00)
[2018-03-25] MEDS: Budesonide/Formoterol 160/4.5 MDI IH SCH ×2 (11:03→21:31)
--- NOTE | 2018-03-25 12:25 | Internal Med Progress Note ---
Date of Encounter: 03/25/18 Time of Encounter: 12:15 - Assessment and plan (1) UTI (urinary tract infection) Current Visit: Yes Status: Acute Assessment and plan: March 25. Urine culture shows Escherichia coli with sensitivity to Rocephin. Continue this with lactobacillus. Qualifiers: Urinary tract infection type: acute cystitis Hematuria presence: without hematuria Qualified Code(s): N30.00 - Acute cystitis without hematuria (2) Weakness Current Visit: Yes Status: Acute Assessment and plan: March 25. Continue PT and OT intervention. She was agreeable to return to [facility] for ongoing care needs. (3) Chronic atrial fibrillation Current Visit: No Status: Chronic Assessment and plan: March 25. Continue Xarelto (4) Diabetes mellitus Current Visit: No Status: Chronic Assessment and plan: March 25. Hemoglobin A1c was 5.8% on 12/31/2017. 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 Continue Coreg and isosorbide Qualifiers: Hypertension type: essential hypertension Qualified Code(s): I10 - Essential (primary) hypertension (6) Hypokalemia Current Visit: Yes Status: Acute Assessment and plan: March 25. Resolved. Continue potassium supplementation. - Subjective Interval history: March 25. She has no new complaints. - Constitutional Vitals: Temp Pulse Resp BP Pulse Ox 97.4 F L 63 14 142/59 98 03/25/18 10:03 03/25/18 10:03 03/25/18 11:03 03/25/18 10:03 03/25/18 11:03 Exam: She is resting comfortably in bed and appears in no acute distress. She appears slightly lethargic but asks and answers questions appropriately. I reviewed her medications and lab results. Internal Medicine: Result - Labs CBC & Chem 7: 03/25/18 05:47 03/25/18 05:47 Labs: Short CBC 03/25/18 Range/Units 05:47 WBC 7.0 (4.3-11.1) K/mcL Hgb 11.1 L (11.5-15.4) g/dL Hct 35.0 L (35.3-44.9) % Plt Count 192 (140-400) K/mcL Neutrophils # 4.0 (1.6-8.9) K/mcL BMP 03/25/18 05:47 Sodium 140 Potassium 3.6 Chloride 104 Carbon Dioxide 33 H BUN 9 Creatinine 0.77 Glucose 126 H Calcium 8.5 L - VTE Documentation of Mechanical Device: Graduated compression elastic hosiery Consult Discharge Plan - Plan Referrals: Marissa Madden, MANOHAR [Primary Care Provider] - 1 week
[2018-03-25] MEDS: cefTRIAXone 1,000 MG in Water for inj. (sterile) 20 ML 10 ML IVPB SCH (14:57)
[2018-03-25] MEDS: *HR* Rivaroxaban 15 MG TABLET PO SCH (17:41)
[2018-03-25] MEDS: ALPRAZolam 0.5 MG TABLET PO PRN (20:39)
[2018-03-25] MEDS ORDERED: Ondansetron 4 MG/2 ML VIAL IVP SCH (22:26)
[2018-03-25] MEDS ORDERED: Ondansetron 4 MG/2 ML VIAL IVP PRN (22:38)
[2018-03-26] MEDS: cefTRIAXone 1,000 MG in Water for inj. (sterile) 20 ML 10 ML IVPB SCH (08:25)
[2018-03-26] MEDS: Lactobacillus 1 EACH CAP.SPRINK PO SCH (08:26)
--- NOTE | 2018-03-26 09:30 | Internal Med Progress Note ---
Date of Encounter: 03/26/18 Time of Encounter: 09:15 - Assessment and plan (1) UTI (urinary tract infection) Current Visit: Yes Status: Acute Assessment and plan: March 25. Urine culture shows Escherichia coli with sensitivity to Rocephin. Continue this with lactobacillus. Qualifiers: Urinary tract infection type: acute cystitis Hematuria presence: without hematuria Qualified Code(s): N30.00 - Acute cystitis without hematuria (2) Weakness Current Visit: Yes Status: Acute Assessment and plan: March 25. Continue PT and OT intervention. She was agreeable to return to [facility] for ongoing care needs. (3) Chronic atrial fibrillation Current Visit: No Status: Chronic Assessment and plan: March 25. Continue Xarelto (4) Diabetes mellitus Current Visit: No Status: Chronic Qualifiers: Diabetes mellitus type: type 2 Diabetes mellitus retirement insulin use: without ferry terminal agent use Diabetes mellitus complication status: with kidney complications Diabetes mellitus complication detail: with chronic kidney disease Chronic kidney disease stage: stage 3 (moderate) Qualified Code(s): E11.22 - Type 2 diabetes mellitus with diabetic chronic kidney disease; N18.3 - Chronic kidney disease, stage 3 (moderate); N18.3 - Chronic kidney disease, stage 3 (moderate) (5) Hypertension Current Visit: No Status: Chronic Qualifiers: Hypertension type: essential hypertension Qualified Code(s): I10 - Essential (primary) hypertension (6) Hypokalemia Current Visit: Yes Status: Acute - Subjective Interval history: March 25. She has no new complaints. - Constitutional Vitals: Temp Pulse Resp BP Pulse Ox 98.0 F 90 17 135/76 95 03/26/18 06:40 03/26/18 06:40 03/26/18 06:40 03/26/18 06:40 03/26/18 06:40 Internal Medicine: Result - Labs CBC & Chem 7: 03/25/18 05:47 03/25/18 05:47 - VTE Documentation of Mechanical Device: Graduated compression elastic hosiery Consult Discharge Plan - Plan Referrals: Marissa Madden, COOK CHEF [Primary Care Provider] - 1 week
[2018-03-26] MEDS: Budesonide/Formoterol 160/4.5 MDI IH SCH (10:00)
--- NOTE | 2018-03-26 14:42 | Discharge Summary ---
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 insulin use: without half-way use Diabetes mellitus complication status: with kidney complications Diabetes mellitus complication detail: with chronic kidney disease Chronic kidney disease stage: stage 3 (moderate) Qualified Code(s): E11.22 - Type 2 diabetes mellitus with diabetic chronic kidney disease; N18.3 - Chronic kidney disease, stage 3 (moderate); N18.3 - Chronic kidney disease, stage 3 (moderate) (5) Hypertension Priority: Secondary Status: Chronic Qualifiers: Hypertension type: essential hypertension Qualified Code(s): I10 - Essential (primary) hypertension (6) Hypokalemia Priority: Secondary Status: Resolved Hospital course: Ms. Hernandez is a 67 year old female who returned to emergency room with complaints of weakness after having been seen a few hours earlier and was diagnosed with UTI. She declined admission but after returning home felt she needed to return to ER. She was admitted to [facility] for ongoing care needs. Initial orders were written by the emergency room physician. I saw her on March 24 and performed a history and physical. She was started on Rocephin empirically in emergency room. I added lactobacillus. Urine culture was ordered but apparently was not collected. She remained afebrile throughout admission. She will continue with Ceftin and probiotic for 3 additional days at discharge. She had physical therapy and occupational therapy evaluations with ongoing intervention. It was felt she would benefit from continued therapy in a SNF. She was agreeable to return to [facility] for ongoing care needs. She will follow with me there. Onglyza was held and blood sugars remained satisfactory. Hemoglobin A1c was 5.8 % on 12/31/2017. She will remain off diabetic medication at this time. Blood pressure remained stable on Coreg and isosorbide. She remained on Xarelto for atrial fibrillation. She was discharged to [facility] the afternoon of 03/26/2018. - Time Spent with Patient Total time spent providing and/or coordinating discharge services: - Discharge Medications Prescriptions: Cefuroxime PO [Ceftin] 500 mg PO Q12HR 3 Days tablet Home Medications: Acetaminophen [Tylenol] 650 mg PO Q4HR PRN 12/21/17 [History] Duloxetine HCl [Cymbalta] 60 mg PO QAM 12/21/17 [History] Isosorbide DInitrate [Isosorbide Dinitrate] 30 mg PO BID 12/21/17 [History] Pravastatin Sodium [Pravachol] 40 mg PO HS 12/21/17 [History] Ranitidine HCl [Zantac] 150 mg PO BID PRN 12/21/17 [History] Rivaroxaban [Xarelto] 15 mg PO QAM 12/21/17 [History] Aspirin [Lo-Dose Aspirin EC] 81 mg PO Q48H #0 12/26/17 [Rx] Bumetanide [Bumex] 0.5 mg PO Q48H tablet 12/26/17 [Rx] Budesonide/Formoterol 160/4.5 [Symbicort 160/4.5] 2 puff IH BIDR inhaler [Rx] Lactobacillus [Culturelle] 1 each PO BID 3 Days cap.sprink 01/23/18 [Rx] Albuterol Sulfate [Albuterol Inhaler] 180 mcg Q6HR 03/23/18 [History] Carvedilol [Coreg] 12.5 mg PO BID #0 03/26/18 [Rx] Cefuroxime PO [Ceftin] 500 mg PO Q12HR 3 Days tablet 03/26/18 [Rx] Allergies/Adverse Reactions: 3 Allergy/AdvReac Type Severity Reaction Status Date / Time Penicillins [PCN] Allergy Severe See Verified 01/20/18 04:01 Comments diphenhydramine Allergy See Verified 01/20/18 04:01 Comments Date of admission: 03/23/18 19:56 Primary care physician: Marissa Madden Consults: 03/24/18 11:01 Consult to Occupational Therapy [CONS] Routine Comment: Evaluate, develop and implement POC Reason for Consult: Weakness Does patient have active BEDREST order?: No Is patient medically & hemodynamically stable?: Yes Patient assessed for mobility or mobilized this visit?: Yes Consult to Physical Therapy [CONS] Routine Comment: Evaluate, develop and implement POC Reason for Consult: Weakness Does patient have active BEDREST order?: No Is patient medically & hemodynamically stable?: Yes Patient assessed for mobility or mobilized this visit?: Yes - Constitutional Vitals: Temp Pulse Resp BP Pulse Ox 97.5 F L 80 15 149/74 99 03/26/18 10:40 03/26/18 10:40 03/26/18 10:40 03/26/18 10:40 03/26/18 10:40 - Patient Status Disposition: Transfer SNF Condition: Fair - Discharge Instructions - Diet and Activity Activity: as per physical therapy Diet: diabetic diet - VTE Documentation of Mechanical Device: Graduated compression elastic hosiery
--- NOTE | 2018-03-26 14:48 | Physician Discharge Referral ---
[facility] Referral Info Transfer To: [facility] Provider in Charge: Eliezer Provider in Charge after Transfer: PCP (Eliezer) - Diagnosis (1) UTI (urinary tract infection) Priority: Primary Status: Acute (2) Weakness Priority: Secondary Status: Acute (3) Chronic atrial fibrillation Priority: Secondary Status: Chronic (4) Diabetes mellitus Priority: Secondary Status: Chronic (5) Hypertension Priority: Secondary Status: Chronic (6) Hypokalemia Priority: Secondary Status: Resolved Prognosis: Fair Aware of Diagnosis: Patient Aware of Prognosis: Patient - Transfer Medications Prescriptions: Cefuroxime PO [Ceftin] 500 mg PO Q12HR 3 Days tablet Home Medications: Acetaminophen [Tylenol] 650 mg PO Q4HR PRN 12/21/17 [History] Duloxetine HCl [Cymbalta] 60 mg PO QAM 12/21/17 [History] Isosorbide DInitrate [Isosorbide Dinitrate] 30 mg PO BID 12/21/17 [History] Pravastatin Sodium [Pravachol] 40 mg PO HS 12/21/17 [History] Ranitidine HCl [Zantac] 150 mg PO BID PRN 12/21/17 [History] Rivaroxaban [Xarelto] 15 mg PO QAM 12/21/17 [History] Aspirin [Lo-Dose Aspirin EC] 81 mg PO Q48H #0 12/26/17 [Rx] Bumetanide [Bumex] 0.5 mg PO Q48H tablet 12/26/17 [Rx] Budesonide/Formoterol 160/4.5 [Symbicort 160/4.5] 2 puff IH BIDR inhaler [Rx] Lactobacillus [Culturelle] 1 each PO BID 3 Days cap.sprink 01/23/18 [Rx] Albuterol Sulfate [Albuterol Inhaler] 180 mcg Q6HR 03/23/18 [History] Carvedilol [Coreg] 12.5 mg PO BID #0 03/26/18 [Rx] Cefuroxime PO [Ceftin] 500 mg PO Q12HR 3 Days tablet 03/26/18 [Rx] Allergies/Adverse Reactions: 3 Allergy/AdvReac Type Severity Reaction Status Date / Time Penicillins [PCN] Allergy Severe See Verified 01/20/18 04:01 Comments diphenhydramine Allergy See Verified 01/20/18 04:01 Comments - Respiratory Orders Smoking Cessation: Smoking cessation has been advised. For more information, call the [place] Tobacco Quit Line at 5-483-WMSV-NOW. - Lab Orders Lab Orders: Other (include drug levels w/frequency) (CBC with differential, BMP , BN peptide in 1 week.) - Rehabiliation Orders Rehab Potential: Fair Rehab Orders: Evaluation for Physical Therapy, Evaluation for Occupational Therapy - Diet Orders No Concentrated Sweets CERTIFICATION: I certify that the transfer of the above named patient to an Extended Care Facility is necessary for the continuing treatment of the diagnosis listed. The above information is true and accurate reflection of patient's current condition. Confidential - Redisclosure prohibited without a patient's written consent.
[2018-03-26 15:01] VITALS: BP 145/88
== END 2018-03-26 17:44 ==
LOC: INPPIK 18:07 → EMEROOPIK 18:07 → INPPIK 20:10
PROVIDERS: ADMIT Emergency Medicine; ATTEND Internal Medicine

== ENCOUNTER 2019-06-12 19:26 | Observation (INO) ==
[2019-06-12] MEDS ORDERED: 0.9 % Sodium Chloride 1,000 ML IVC ONE (19:42)
--- NOTE | 2019-06-12 19:42 | Emergency Department Note ---
Disposition Clinical Impression: COPD with exacerbation, Weakness Disposition: Admitted As Inpatient Condition: Fair Referrals: Marissa Madden CNP [Primary Care Provider] - Time of Disposition: 20:40 General Adult HPI - General Chief complaint: ED General Medical Stated complaint: sent after well check Time Seen by Provider: 06/12/19 19:37 Source: patient, EMS Mode of arrival: EMS Limitations: no limitations Nursing Notes Reviewed: Yes Vital Signs Reviewed: Yes - History of Present Illness HPI Narrative: Patient presents with history of some generalized weakness. was called to check on her and she was not answering the phone. She states she is been staying in her bedroom and that she "could not get to the phone". She states she is been weak, uses a wheelchair to get around and she was not able to get up to get to where her phone is. She cannot specify any other specific new complaints. She denies any fall or injury. She has reported a generalized weakness and malaise. He has had chills. She states her medications are given to her does not believe them to be different. She has not been having chest pain, palpitation. She has had shortness of breath but no cough. She states she will cough after she eats. She denies any headache or visual changes. She has a localized numbness, tingling or weakness to the extremities. She denies any urinary frequency or burning. She has a lower extremity swelling or orthopnea. She denies history of CHF but admits to COPD with use of a home inhaler. She has an air conditioner does not believe she has he related troubles. She is not on home oxygen and was saturating 84% on arrival to our facility. She was placed on supplemental oxygen. Patient is on Xarelto per old record. She has history of atrial fibrillation with prior record as well as congestive heart failure in the past. Patient is diabetic and does not know what her blood sugars have been running. Onset (ago): day(s) - Related Data Home Medications Medication Instructions Recorded Confirmed Acetaminophen [Tylenol] 650 mg PO Q4HR PRN 12/21/17 06/12/19 Duloxetine HCl [Cymbalta] 60 mg PO QAM 12/21/17 06/12/19 Isosorbide DInitrate [Isosorbide 30 mg PO BID 12/21/17 06/12/19 Dinitrate] Pravastatin Sodium [Pravachol] 40 mg PO HS 12/21/17 06/12/19 Rivaroxaban [Xarelto] 15 mg PO QAM 12/21/17 06/12/19 raNITIdine HCl [Zantac] 150 mg PO BID PRN 12/21/17 06/12/19 Albuterol Sulfate [Proventil 180 mcg Q6HR 03/23/18 06/12/19 Inhaler] Previous Rx's Medication Instructions Recorded Aspirin [Lo-Dose Aspirin EC] 81 mg PO Q48H #0 12/26/17 Bumetanide [Bumex] 0.5 mg PO Q48H tablet 12/26/17 Budesonide/Formoterol 160/4.5 2 puff IH BIDR inhaler 01/23/18 [Symbicort 160/4.5] Lactobacillus [Culturelle] 1 each PO BID 3 Days cap.sprink 01/23/18 Carvedilol [Coreg] 12.5 mg PO BID #0 03/26/18 Cefuroxime PO [Ceftin] 500 mg PO Q12HR 3 Days tablet 03/26/18 Allergies Allergy/AdvReac Type Severity Reaction Status Date / Time Penicillins [PCN] Allergy Severe See Verified 06/12/19 19:46 Comments diphenhydramine Allergy See Verified 06/12/19 19:46 Comments All systems ED: reviewed and negative except as stated. Past Medical History - Past Medical History Attestation: Yes The following information was validated with the patient. Source: patient, old records reviewed, nursing notes reviewed Medical history: Reports: asthma, atrial fibrillation, CHF, COPD, CVA, diabetes, hyperlipidemia, hypertension, kidney stones, other Surgical history: Reports: angioplasty/stent, cataract, cholecystectomy, herniorrhaphy, ureteral stent, other Psychiatric history: Reports: anxiety, depression - Social History Smoking Status: Never smoker Smokeless Tobacco Status: No Alcohol use: Reports: none Drug use: Reports: none Physical Exam - General Limitations: no limitations General appearance: alert, in no apparent distress - Head Head exam: atraumatic, normocephalic, normal inspection - Eye Eye exam: Present: normal appearance, PERRL, EOMI - ENT ENT exam: normal exam, normal oropharynx, mucous membranes moist - Neck Neck exam: Present: normal inspection, full ROM, trachea midline - Chest Chest inspection: Present: normal inspection, symmetric chest wall rise - Respiratory Respiratory exam: Present: prolonged expiratory phase. Absent: respiratory distress, wheezes - Cardiovascular Cardiovascular exam: Present: regular rate, normal rhythm, normal heart sounds. Absent: tachycardia - Abdominal Exam Abdominal exam: Present: soft, Non-Tender, normal bowel sounds. Absent: tenderness, distention, guarding, rebound, rigidity - Extremities Exam Extremities exam: Present: normal inspection, full ROM, normal capillary refill. Absent: tenderness, pedal edema, calf tenderness - Expanded Lower Extremity Exam Neurovascular/Tendon exam: Present: normal capillary refill. Absent: motor deficit, sensory deficit, tendon deficit Gait: not tested/not observed - Neurological Exam Neurological exam: Present: alert, oriented X3. Absent: motor sensory deficit - Psychiatric Psychiatric exam: Present: normal affect, normal mood. Absent: agitated, anxious - Skin Skin exam: Present: warm, dry, intact, normal color. Absent: diaphoresis, pallor Course Course Narrative: With return of all testing except for urinalysis, care is discussed with Dr. Martins. Patient is resting comfortably with a heart rate in the 80s with atrial fibrillation. She has a saturation of 98% on supplemental oxygen with a respiratory rate of 28. She has received IV fluids as well as initial doses of antibiotics and Solu-Medrol. I feel she will need to be observed on respiratory protocol and assessed of the morning with regard to her degree of weakness and to assess her capacity for outpatient management. Dr. Martins is agreeable with observation and has given orders for her inpatient care. Vital Signs Temperature 98.6 F 06/12/19 19:28 Pulse Rate 91 06/12/19 19:28 Respiratory Rate 18 06/12/19 19:28 Blood Pressure 123/81 06/12/19 19:28 O2 Sat by Pulse Oximetry 97 06/12/19 19:28 Temperature 98.6 F 06/12/19 19:28 Pulse Rate 88 06/12/19 20:27 Respiratory Rate 18 06/12/19 20:27 Blood Pressure 123/81 06/12/19 20:27 O2 Sat by Pulse Oximetry 97 06/12/19 20:27 Oxygen Delivery Oxygen Delivery Nasal Cannula Medical Decision Making - Medical Records Medical records reviewed: Yes I reviewed the patient's medical records. - Lab Data Lab results reviewed: Yes I reviewed the patient's lab results. Result diagrams: 06/12/19 20:09 06/12/19 20:09 Lab Results 06/12/19 06/12/19 06/12/19 Range/Units 20:07 20:09 20:09 WBC 9.4 (4.3-11.1) K/mcL RBC 5.16 H (3.82-4.97) M/mcL Hgb 15.2 (11.5-15.4) g/dL Hct 44.8 (35.3-44.9) % MCV 86.8 (83.0-100.0) fL MCH 29.5 (28.0-33.3) pg MCHC 33.9 (31.6-35.5) g/dL RDW 13.1 (11.5-14.5) % Plt Count 243 (140-400) K/mcL MPV 10.7 (9.4-12.4) fL Immature Gran % 0.4 (0-4) % Seg Neutrophils % 70.1 % Lymphocytes % 20.8 % Monocytes % 7.3 % Eosinophils % 1.2 % Basophils % 0.2 % Neutrophils # 6.6 (1.6-8.9) K/mcL Lymphocytes # 2.0 (0.6-4.6) K/mcL Monocytes # 0.7 (0.0-1.3) K/mcL Eosinophils # 0.1 (0.0-0.6) K/mcL Basophils # 0.0 (0.0-0.2) K/mcL PT 18.0 H (9.4-12.1) Seconds INR 1.6 Sample Site L Radial ABG pH 7.42 (7.32-7.45) pH Units ABG pCO2 39 (35-45) mmHg ABG pO2 104 (85-104) mmHg ABG HCO3 25 (21-27) mEq/L ABG Total CO2 27 H (20-26) mEq/L ABG O2 Saturation 98 (95-98) % ABG Base Excess 1 (-2 to 3) mEq/L Hank Test Positive O2 Delivery Device Cannula Inspired O2 2.0 (1-15=lpm [id number]=%) Sodium (136-145) mEq/L Potassium (3.5-5.1) mEq/L Chloride (98-107) mEq/L Carbon Dioxide (23-29) mEq/L BUN (8-23) mg/dL Creatinine (0.60-1.20) mg/dL Est GFR ( Amer) (> 60) Est GFR (Non-Af Amer) (> 60) BUN/Creatinine Ratio (6-26) Glucose (70-105) mg/dL POC Glucose (70-99) mg/dL Calculated Osmolality (280-300) Lactic Acid (0.5-2.2) mmol/L Calcium (8.6-10.3) mg/dL Total Bilirubin (0.3-1.0) mg/dL AST (13-39) Units/L ALT (7-52) Units/L Alkaline Phosphatase (34-104) Units/L Troponin I (< 0.04) ng/mL Serum Total Protein (6.4-8.9) g/dL Albumin (3.5-5.7) g/dL Globulin (2.4-3.5) g/dL Albumin/Globulin Ratio (1.1-2.2) 06/12/19 06/12/19 06/12/19 Range/Units 20:09 20:09 20:21 WBC (4.3-11.1) K/mcL RBC (3.82-4.97) M/mcL Hgb (11.5-15.4) g/dL Hct (35.3-44.9) % MCV (83.0-100.0) fL MCH (28.0-33.3) pg MCHC (31.6-35.5) g/dL RDW (11.5-14.5) % Plt Count (140-400) K/mcL MPV (9.4-12.4) fL Immature Gran % (0-4) % Seg Neutrophils % % Lymphocytes % % Monocytes % % Eosinophils % % Basophils % % Neutrophils # (1.6-8.9) K/mcL Lymphocytes # (0.6-4.6) K/mcL Monocytes # (0.0-1.3) K/mcL Eosinophils # (0.0-0.6) K/mcL Basophils # (0.0-0.2) K/mcL PT (9.4-12.1) Seconds INR Sample Site ABG pH (7.32-7.45) pH Units ABG pCO2 (35-45) mmHg ABG pO2 (85-104) mmHg ABG HCO3 (21-27) mEq/L ABG Total CO2 (20-26) mEq/L ABG O2 Saturation (95-98) % ABG Base Excess (-2 to 3) mEq/L Hank Test O2 Delivery Device Inspired O2 (1-15=lpm [id number]=%) Sodium 140 (136-145) mEq/L Potassium 3.4 L (3.5-5.1) mEq/L Chloride 100 (98-107) mEq/L Carbon Dioxide 25 (23-29) mEq/L BUN 9 (8-23) mg/dL Creatinine 0.91 (0.60-1.20) mg/dL Est GFR ( Amer) > 60 (> 60) Est GFR (Non-Af Amer) > 60 (> 60) BUN/Creatinine Ratio 10 (6-26) Glucose 137 H (70-105) mg/dL POC Glucose 132 H (70-99) mg/dL Calculated Osmolality 291 (280-300) Lactic Acid 1.1 (0.5-2.2) mmol/L Calcium 9.4 (8.6-10.3) mg/dL Total Bilirubin 0.6 (0.3-1.0) mg/dL AST 20 (13-39) Units/L ALT 16 (7-52) Units/L Alkaline Phosphatase 122 H (34-104) Units/L Troponin I < 0.03 (< 0.04) ng/mL Serum Total Protein 7.4 (6.4-8.9) g/dL Albumin 4.0 (3.5-5.7) g/dL Globulin 3.4 (2.4-3.5) g/dL Albumin/Globulin Ratio 1.2 (1.1-2.2) - Radiology Data Radiology results reviewed: Yes I reviewed the patient's radiology results. Single view chest x-ray is performed. This does not demonstrate evidence for infiltrate, effusion, pneumothorax, foreign body or heart failure. The cardiac silhouette is enlarged. I do not see abnormality to the osseous structures of the chest. This is on my interpretation. Impressions Chest X-Ray 06/12/19 19:42 IMPRESSION: No acute abnormality identified. D/ / Patrick Quezada MD / Patrick Quezada MD Interpreting Provider: Patrick Quezada MD - EKG Data EKG #1 EKG attestation: Yes I reviewed and interpreted this EKG. EKG shows normal: intervals, QRS complexes, ST-T waves Rate: normal (80) Rhythm: A.Fib [place]/QRS: right axis deviation
[2019-06-12] MEDS ORDERED: methylPREDNISolone 125 MG/2 ML VIAL IVP ONE (19:44)
[2019-06-12] MEDS ORDERED: Azithromycin 500 MG in D5% in Water 250 ML IVPB ONE (19:44)
[2019-06-12] MEDS ORDERED: Ipratropium/Albuterol Neb 3 ML IH ONE (19:44)
[2019-06-12] MEDS ORDERED: cefTRIAXone 2,000 MG in Water for inj. (sterile) 20 ML IVP ONE (19:44)
[2019-06-12 20:11] LABS: ABG Base Excess 1 mEq/L (-2 to 3); ABG HCO3 25 mEq/L (21-27); ABG Oxygen Saturation 98 % (95-98); ABG PCO2 39 mmHg (35-45); ABG PH 7.42 pH Units (7.32-7.45); ABG PO2 104 mmHg (85-104); ABG TCO2 27 mEq/L (20-26)
[2019-06-12 20:19] LABS: Basophils % 0.2 %; Eosinophils # 0.1 K/mcL (0.0-0.6); Eosinophils % 1.2 %; Hematocrit 44.8 % (35.3-44.9); Hemoglobin 15.2 g/dL (11.5-15.4); Immature Granulocytes % 0.4 % (0-4); Lymphocytes % 20.8 %; Mean Corpuscular HGB Conc 33.9 g/dL (31.6-35.5); Mean Corpuscular Hemoglobin 29.5 pg (28.0-33.3); Mean Corpuscular Volume 86.8 fL (83.0-100.0); Mean Platelet Volume 10.7 fL (9.4-12.4); Monocytes # 0.7 K/mcL (0.0-1.3); Monocytes % 7.3 %; Neutrophils # 6.6 K/mcL (1.6-8.9); Platelet Count 243 K/mcL (140-400); Red Blood Count 5.16 M/mcL (3.82-4.97); Red Cell Distribution Width 13.1 % (11.5-14.5); Segmented Neutrophils % 70.1 %; White Blood Count 9.4 K/mcL (4.3-11.1)
[2019-06-12 20:27] LABS: INR 1.6
[2019-06-12 20:39] LABS: Alanine Aminotransferase 16 Units/L (7-52); Albumin/Globulin Ratio 1.2 (1.1-2.2); Alkaline Phosphatase 122 Units/L (34-104); Aspartate Amino Transferase 20 Units/L (13-39); BUN/Creatinine Ratio 10 (6-26); Bilirubin,Total 0.6 mg/dL (0.3-1.0); Blood Urea Nitrogen 9 mg/dL (8-23); Calcium 9.4 mg/dL (8.6-10.3); Carbon Dioxide 25 mEq/L (23-29); Chloride 100 mEq/L (98-107); Globulin 3.4 g/dL (2.4-3.5); Glucose 137 mg/dL (70-105); Osmolality,Calculated 291 (280-300); Potassium 3.4 mEq/L (3.5-5.1); Sodium 140 mEq/L (136-145); Total Protein 7.4 g/dL (6.4-8.9); Troponin I < 0.03 ng/mL (< 0.04); eGFR For African Americans > 60 (> 60); eGFR For Non-African Americans > 60 (> 60)
[2019-06-12 21:55] LABS: Bilirubin,Urine Small (Negative); Blood,Urine Small (Negative); Clarity,Urine Slightly Cloudy (Clear); Color,Urine Yellow (Yellow); Glucose,Urine (UA) Normal (Normal); Ketones,Urine 40 mg/dL (Negative); Leukocyte Esterase,Urine Small (Negative); Nitrite,Urine Negative (Negative); Protein,Urine Trace mg/dL (Neg-Trace); Urobilinogen,Urine Normal (Normal)
[2019-06-12 22:03] LABS: Hyaline Casts,Urine Few per lpf (None-Few); Squamous Epithelial Cell,Urine Many per lpf (None-Few)
[2019-06-12 22:04] LABS: Mucus,Urine Moderate (Few); RBC,Urine 0-3 per hpf (0-3); Renal Epithelial Cells,Urine Few per hpf (None-Few); WBC,Urine 0-3 per hpf (0-3)
[2019-06-12 22:07] LABS: Bacteria,Urine Moderate per hpf (None-Few); Yeast,Urine Few per hpf (None Seen)
[2019-06-12] MEDS ORDERED: Albuterol 2.5 MG/3 ML NEBULIZER IH PRN (22:12)
[2019-06-12] MEDS ORDERED: Naloxone 0.4 MG/ML INJ IVP PRN (22:12)
[2019-06-12] MEDS ORDERED: Famotidine 20 MG TABLET PO PRN (22:12)
[2019-06-12] MEDS ORDERED: Acetaminophen 325 MG TABLET PO PRN (22:12)
[2019-06-12] MEDS ORDERED: MOM Conc 10 ML UD.LIQ PO PRN (22:12)
[2019-06-12] MEDS ORDERED: Mag Hydrox/Al Hydrox/Simeth 30 ML UDC PO PRN (22:12)
[2019-06-12] MEDS: Bumetanide 1 MG TABLET PO SCH (22:56)
[2019-06-12] MEDS: Lactobacillus 1 EACH CAP.SPRINK PO SCH (22:56)
[2019-06-12] MEDS: Aspirin Enteric Coated 81 MG Tablet PO SCH (22:56)
[2019-06-12] MEDS: 0.9 % Sodium Chloride 1,000 ML IVC SCH (22:57)
[2019-06-12] MEDS: Ipratropium/Albuterol Neb 3 ML IH SCH (22:58)
[2019-06-13] MEDS: Ipratropium/Albuterol Neb 3 ML IH SCH ×2 (04:19→09:41)
[2019-06-13] MEDS ORDERED: predniSONE 20 MG TABLET PO SCH (08:00)
[2019-06-13] MEDS: *HR* Rivaroxaban 15 MG TABLET PO SCH (10:02)
[2019-06-13] MEDS: Lactobacillus 1 EACH CAP.SPRINK PO SCH ×2 (10:02→20:39)
[2019-06-13] MEDS: 0.9 % Sodium Chloride 1,000 ML IVC SCH (11:44)
--- NOTE | 2019-06-13 14:50 | Internal Med History&Physical ---
Date of Encounter: 06/13/19 Time of Encounter: 14:25 Assessment and Plan (1) Hypokalemia Current visit: No Status: Acute Suspect due in part to diuretic use. She states she has had some diarrhea in the past 2 days. Supplemental potassium will be given and further workup done as needed. (2) Chronic atrial fibrillation Current visit: No Status: Chronic Continue Xarelto (3) Diabetes mellitus Current visit: No Status: Chronic Check hemoglobin A1c in a.m. 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 Qualifiers: Heart failure chronicity: chronic Qualified Code(s): I50.32 - Chronic diastolic (congestive) heart failure (5) Confusion Current visit: No Status: Acute MMSE will be ordered. (6) Weakness Current visit: Yes Status: Acute Supplement potassium will be given. Magnesium level will be checked. Further workup will be done as needed. Internal Medicine - H&P: HPI Chief complaint: Weakness Admitted From: Emergency Dept Plans for Post Hospital Care: Home History of present illness: Ms. Hernandez is a 68 year old female who came to emergency room complaining of weakness. ER report states was called to her house because she was not answering her phone. She was brought to emergency room and was found to have hypokalemia. She was admitted to [facility] floor for ongoing care needs. She is a fair historian. She knows her age and address but does not know what day of the week it is. She gives different answers occasionally for questions that are repeated. Past Med Surg Social Fam HX - Past Medical History Medical history: asthma, atrial fibrillation, CHF, COPD, CVA, diabetes, hyperlipidemia, hypertension, kidney stones, other Additional medical history: Anemia. Cystitis with Hematuria Psychiatric history: anxiety, depression - Past Surgical History Surgical History: angioplasty/stent, cataract, cholecystectomy, herniorrhaphy, ureteral stent, other Additional surgical history: mesh implanted with hernia repair - Social History Smoking Status: Never smoker Smokeless Tobacco Status: No Alcohol use: none Drug use: none Internal Medicine - H&P: Meds Acetaminophen [Tylenol] 650 mg PO Q4HR PRN 12/21/17 [History] Duloxetine HCl [Cymbalta] 60 mg PO QAM 12/21/17 [History] Isosorbide DInitrate [Isosorbide Dinitrate] 30 mg PO BID 12/21/17 [History] Pravastatin Sodium [Pravachol] 40 mg PO HS 12/21/17 [History] Rivaroxaban [Xarelto] 15 mg PO QAM 12/21/17 [History] raNITIdine HCl [Zantac] 150 mg PO BID PRN 12/21/17 [History] Aspirin [Lo-Dose Aspirin EC] 81 mg PO Q48H #0 12/26/17 [Rx] Bumetanide [Bumex] 0.5 mg PO Q48H tablet 12/26/17 [Rx] Budesonide/Formoterol 160/4.5 [Symbicort 160/4.5] 2 puff IH BIDR inhaler 01/23/18 [Rx] Lactobacillus [Culturelle] 1 each PO BID 3 Days cap.sprink 01/23/18 [Rx] Albuterol Sulfate [Proventil Inhaler] 180 mcg Q6HR 03/23/18 [History] Carvedilol [Coreg] 12.5 mg PO BID #0 03/26/18 [Rx] Cefuroxime PO [Ceftin] 500 mg PO Q12HR 3 Days tablet 03/26/18 [Rx] Allergy/AdvReac Type Severity Reaction Status Date / Time Penicillins [PCN] Allergy Severe See Verified 06/12/19 19:46 Comments diphenhydramine Allergy See Verified 06/12/19 19:46 Comments All Systems PM: A 10-system review of systems was performed and is negative for pertinent findings except as documented above in the HPI. Review of systems: Review of systems from her March 2018 [facility] hospitalization were reviewed and revised as below. Gen.: Her weight has decreased from 106.957 kg on 01/30/2017 to 95.878 kg on admission now. Cardiovascular: She has history of hypertension. She has chronic atrial fibrillation and takes Xarelto. She claims a history of heart failure but an echocardiogram done 06/24/2015 showed LVEF of 60-65%. There was indeterminate diastolic function due to atrial fibrillation. No significant valvular abnormalities were seen. She had LAE at 4.2 cm. She had a Regadenoson stress test 04/23/2016 which showed no EKG or perfusion changes to indicate ischemia or infarct. She denies DVT or pulmonary embolus Respiratory: She is a lifelong nonsmoker and has no documented chronic lung disease. She uses supplemental oxygen at home for dyspnea. GI: She has had cholecystectomy. She has GERD and IBS. She claims a colonoscopy done early December 2016 was unremarkable. She denies disorders of her liver or exocrine pancreas : She has chronic kidney disease stage III but does not follow with a engineering teacher. She denies other kidney or bladder disorders. Neurologic: She claims she has had 5 strokes with the most recent one in 2009. Sequelae include a swallowing deficit and left hemiparesis. She uses a walker for ambulation. She denies seizures. Endocrine: She was diagnosed with DM 2 approximately 2013. Her most recent hemoglobin A1c was 6.7% on 03/31/2018. She has presumed hyperlipidemia and is on Pravachol. She has no documented thyroid disease. Hematology/oncology: She denies blood disorders or cancers. She has had anemia in the past. Anemia testing December 2017 admission showed no factor deficiency. Psychiatric: She has a diagnosis of depression but denies anxiety or other mental health issues Musk skeletal: She has DJD but denies gout or other bone joint or muscle disorders. - Constitutional Vitals: Temp Pulse Resp BP Pulse Ox 97.6 F 88 18 141/81 96 06/13/19 11:00 06/13/19 11:00 06/13/19 11:00 06/13/19 11:00 06/13/19 11:00 Exam: Gen.: She is a well-developed overweight female lying in bed who appears in no severe distress HEENT: Head is atraumatic and normocephalic. Eyes: EOMI. There is no scleral icterus. Mouth: Mucosa is moist. Neck: Supple and nontender. There is no thyromegaly or adenopathy noted. Heart: Irregularly irregular without murmurs or gallops Lungs: No wheezes or crackles are heard. Abdomen: She has a large abdomen. There is a well-healed right upper quadrant scar and transverse lower abdominal scar. No masses or guarding are noted. Extremities: There is no cyanosis edema or clubbing noted. Dorsalis pedis and posterior tibial pulses are trace palpable bilaterally. Neurologic: Mental status: She is talkative and a fair historian. Cranial nerves: Smile is symmetric. Forehead wrinkles bilaterally. Tongue protrudes midline. EOMI. Motor: There is no pronator drift. Cerebellar: For her to nose is intact bilaterally. Skin: Warm and dry Internal Med - H&P Results - Labs CBC & Chem 7: 06/12/19 20:09 06/12/19 20:09 Labs: Short CBC 06/12/19 Range/Units 20:09 WBC 9.4 (4.3-11.1) K/mcL Hgb 15.2 (11.5-15.4) g/dL Hct 44.8 (35.3-44.9) % Plt Count 243 (140-400) K/mcL Neutrophils # 6.6 (1.6-8.9) K/mcL BMP 06/12/19 20:09 Sodium 140 Potassium 3.4 L Chloride 100 Carbon Dioxide 25 BUN 9 Creatinine 0.91 Glucose 137 H Calcium 9.4 Cardiac Enzymes 06/12/19 Range/Units 20:09 Troponin I < 0.03 (< 0.04) ng/mL Liver Function 06/12/19 Range/Units 20:09 Total Bilirubin 0.6 (0.3-1.0) mg/dL AST 20 (13-39) Units/L ALT 16 (7-52) Units/L Alkaline Phosphatase 122 H (34-104) Units/L Albumin 4.0 (3.5-5.7) g/dL Urine 06/12/19 Range/Units 21:25 Urine Color Yellow (Yellow) Urine Clarity Slightly Cloudy A (Clear) Urine pH 6.0 (5.0-8.0) pH Units Ur Specific [place] 1.010 (1.010-1.025) Urine Protein Trace (Neg-Trace) mg/dL Urine Glucose (UA) Normal (Normal) mg/dL - ABG Interpretation ABG results: 06/12/19 20:07 ABG pH 7.42 ABG pCO2 39 ABG pO2 104 ABG HCO3 25 ABG Total CO2 27 H ABG O2 Saturation 98 ABG Base Excess 1 - Impressions ITS Impressions Chest X-Ray 06/12/19 19:42 IMPRESSION: No acute abnormality identified. D/ / Patrick Quezada MD / Patrick Quezada MD Interpreting Provider: Patrick Quezada MD
[2019-06-13] MEDS ORDERED: cefTRIAXone 2,000 MG in 0.9 % Sodium Chloride Mini Bag 100 ML IVPB SCH (15:00)
[2019-06-13] MEDS ORDERED: Azithromycin 500 MG in D5% in Water 250 ML IVPB SCH (15:00)
[2019-06-13] MEDS: cefTRIAXone 2,000 MG in 0.9 % Sodium Chloride Mini Bag 100 ML IVPB SCH (20:37)
[2019-06-13] MEDS: Azithromycin 500 MG in D5% in Water 250 ML IVPB SCH (22:12)
[2019-06-14] MEDS: Ondansetron ODT 4 MG TAB.RAPDIS SL PRN ×2 (03:28→11:46)
[2019-06-14 11:08] LABS: BUN/Creatinine Ratio 13 (6-26); Blood Urea Nitrogen 12 mg/dL (8-23); Calcium 8.4 mg/dL (8.6-10.3); Carbon Dioxide 31 mEq/L (23-29); Chloride 107 mEq/L (98-107); Glucose 251 mg/dL (70-105); Osmolality,Calculated 302 (280-300); Potassium 3.6 mEq/L (3.5-5.1); Sodium 142 mEq/L (136-145); eGFR For African Americans > 60 (> 60); eGFR For Non-African Americans > 60 (> 60)
--- NOTE | 2019-06-14 11:17 | Electrocardiograph Report ---
[place] [id number] Test Date: 2019-06-12 Pat Name: Yuly Hernandez Department: EDP-16 Room: [facility] Gender: F Ceo And Founder: : 1950 Requested By: Hitesh Macedo Order Number: [id number] Reading MD: Jez Cotton Measurements Intervals [place] Rate: 80 P: [place]: QRS: 190 QRSD: 110 T: 61 QT: 413 QTc: 477 Interpretive Statements Atrial fibrillation Right axis deviation Poor R wave progression Electronically Signed On 06-14-2019 11:15:06 EDT by Jez Cotton
[2019-06-14] MEDS: *HR* Rivaroxaban 15 MG TABLET PO SCH (11:44)
[2019-06-14] MEDS: Lactobacillus 1 EACH CAP.SPRINK PO SCH ×2 (11:44→20:59)
[2019-06-14 12:55] LABS: Estimated Average Glucose 171 mg/dl
--- NOTE | 2019-06-14 15:14 | Internal Med Progress Note ---
Date of Encounter: 06/14/19 Time of Encounter: 15:09 - Assessment and plan (1) Hypokalemia Current Visit: No Status: Acute Assessment and plan: June 14. Potassium now normal at 3.6. Continue supplementation and recheck labs in a.m. (2) Chronic atrial fibrillation Current Visit: No Status: Chronic Assessment and plan: June 14. Continue Xarelto (3) Diabetes mellitus Current Visit: No Status: Chronic Assessment and plan: June 14. Hemoglobin A1c 7.6%. Continue Accu-Cheks with SSI. 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 BN peptide pending. Continue Bumex, Coreg, and Imdur Qualifiers: Heart failure chronicity: chronic Qualified Code(s): I50.32 - Chronic diastolic (congestive) heart failure (5) Confusion Current Visit: No Status: Acute Assessment and plan: June 14. MMSE score was 17/30. Social service is working to arrange SNF placement. (6) Weakness Current Visit: Yes Status: Acute Assessment and plan: June 14. PT and OT evaluations have been ordered. Potassium level now normal. Magnesium level was normal at 1.6. - Subjective Interval history: June 14. She complains of nausea and abdominal discomfort. She states she has not vomited today. - Constitutional Vitals: Temp Pulse Resp BP Pulse Ox 98.4 F 81 16 144/84 93 06/14/19 06:18 06/14/19 06:18 06/14/19 06:18 06/14/19 06:18 06/14/19 06:18 Exam: She is resting comfortably in bed and appears in no acute distress. Her affect is overall cheerful. Abdomen is soft and nontender. Bowel sounds are present. I reviewed her medications and lab results. Internal Medicine: Result - Labs CBC & Chem 7: 06/12/19 20:09 06/14/19 10:35 Labs: BMP 06/14/19 10:35 Sodium 142 Potassium 3.6 Chloride 107 Carbon Dioxide 31 H BUN 12 Creatinine 0.91 Glucose 251 H Calcium 8.4 L - ABG Interpretation ABG results: ABG ABG pH 7.42 pH Units (7.32-7.45) 06/12/19 20:07 ABG pCO2 39 mmHg (35-45) 06/12/19 20:07 ABG pO2 104 mmHg (85-104) 06/12/19 20:07 ABG O2 Saturation 98 % (95-98) 06/12/19 20:07 PT/INR, D-dimer PT 18.0 Seconds (9.4-12.1) H 06/12/19 20:09 Consult Discharge Plan - Plan
[2019-06-14] MEDS: Azithromycin 500 MG in D5% in Water 250 ML IVPB SCH (19:53)
[2019-06-14] MEDS: cefTRIAXone 2,000 MG in 0.9 % Sodium Chloride Mini Bag 100 ML IVPB SCH (19:55)
[2019-06-14] MEDS: Bumetanide 1 MG TABLET PO SCH (20:59)
[2019-06-14] MEDS: Aspirin Enteric Coated 81 MG Tablet PO SCH (21:00)
[2019-06-15] MEDS: Ondansetron ODT 4 MG TAB.RAPDIS SL PRN (07:01)
[2019-06-15 08:09] LABS: Basophils % 0.2 %; Eosinophils # 0.3 K/mcL (0.0-0.6); Eosinophils % 2.5 %; Hematocrit 41.7 % (35.3-44.9); Immature Granulocytes % 0.3 % (0-4); Lymphocytes # 2.2 K/mcL (0.6-4.6); Lymphocytes % 19.9 %; Mean Corpuscular HGB Conc 33.6 g/dL (31.6-35.5); Mean Corpuscular Hemoglobin 29.4 pg (28.0-33.3); Mean Corpuscular Volume 87.6 fL (83.0-100.0); Mean Platelet Volume 10.9 fL (9.4-12.4); Monocytes # 0.8 K/mcL (0.0-1.3); Monocytes % 7.4 %; Neutrophils # 7.8 K/mcL (1.6-8.9); Platelet Count 222 K/mcL (140-400); Red Blood Count 4.76 M/mcL (3.82-4.97); Segmented Neutrophils % 69.7 %; White Blood Count 11.1 K/mcL (4.3-11.1)
[2019-06-15 08:29] LABS: BUN/Creatinine Ratio 13 (6-26); Blood Urea Nitrogen 11 mg/dL (8-23); Calcium 8.9 mg/dL (8.6-10.3); Carbon Dioxide 32 mEq/L (23-29); Chloride 102 mEq/L (98-107); Glucose 146 mg/dL (70-105); Osmolality,Calculated 294 (280-300); Potassium 3.6 mEq/L (3.5-5.1); Sodium 141 mEq/L (136-145); eGFR For African Americans > 60 (> 60); eGFR For Non-African Americans > 60 (> 60)
[2019-06-15] MEDS: *HR* Rivaroxaban 15 MG TABLET PO SCH (09:28)
[2019-06-15] MEDS: Lactobacillus 1 EACH CAP.SPRINK PO SCH (09:29)
[2019-06-15 14:22] VITALS: BP 144/80
--- NOTE | 2019-06-15 15:06 | Discharge Summary ---
Orders not resulted at time of discharge: Pending orders 06/12/19 19:58 Culture,Blood [BC] Stat 06/12/19 21:48 Culture,Urine [RM] Stat Date of Encounter: 06/15/19 Time of Encounter: 14:55 - Discharge Diagnosis (1) Hypokalemia Priority: Primary Status: Resolved (2) Chronic atrial fibrillation Priority: Secondary Status: Chronic (3) Diabetes mellitus Priority: Secondary Status: Chronic Qualifiers: Diabetes mellitus type: type 2 Diabetes mellitus detention insulin use: without detention use Diabetes mellitus complication status: with kidney complications Diabetes mellitus complication detail: with chronic kidney disease Chronic kidney disease stage: stage 3 (moderate) Qualified Code(s): E11.22 - Type 2 diabetes mellitus with diabetic chronic kidney disease; N18.3 - Chronic kidney disease, stage 3 (moderate); N18.3 - Chronic kidney disease, stage 3 (moderate) (4) Diastolic heart failure Priority: Secondary Status: Chronic Qualifiers: Heart failure chronicity: chronic Qualified Code(s): I50.32 - Chronic diastolic (congestive) heart failure (5) Weakness Priority: Secondary Status: Acute (6) Dementia Priority: Secondary Status: Chronic Qualifiers: Dementia type: unspecified type Dementia behavioral disturbance: without behavioral disturbance Qualified Code(s): F03.90 - Unspecified dementia without behavioral disturbance Hospital course: Ms. Hernandez is a 68 year old female who came to emergency room complaining of weakness. ER report states was called to her house because she was not answering her phone. She was brought to emergency room and was found to have hypokalemia. She was admitted to [facility] floor for ongoing care needs. Initial orders were written by the emergency room physician. I saw her on June 13 and performed a history and physical. She was given supplemental potassium and hypokalemia normalized. She will continue this supplemental potassium at discharge. Hemoglobin A1c returned slightly elevated 7.6%. Accu-Cheks remained stable during her hospital stay. Her PCP can monitor. She was started on Rocephin and Zithromax through emergency room. Urine and blood cultures are pending at time of discharge. She remained afebrile and there was no leukocytosis or left shift on CBC. She will not continue with antibiotics at discharge. MMSE was done with score of 17/30. B12 and TSH levels were normal at 630 and 2.868 respectively. Social service was consulted and arrangements were complete on June 15 for her to be discharged to [facility] for ongoing care needs. - Time Spent with Patient Total time spent providing and/or coordinating discharge services: - Discharge Medications Prescriptions: New Potassium Chloride 20 meq PO DAILY tab.er.prt Continued Rivaroxaban [Xarelto] 15 mg PO QAM raNITIdine HCl [Zantac] 150 mg PO BID PRN PRN Reason: as needed Isosorbide DInitrate [Isosorbide Dinitrate] 30 mg PO BID Pravastatin Sodium [Pravachol] 40 mg PO HS Acetaminophen [Tylenol] 650 mg PO Q4HR PRN PRN Reason: as needed Duloxetine HCl [Cymbalta] 60 mg PO QAM Aspirin [Lo-Dose Aspirin EC] 81 mg PO Q48H #0 Bumetanide [Bumex] 0.5 mg PO Q48H tablet Budesonide/Formoterol 160/4.5 [Symbicort 160/4.5] 2 puff IH BIDR inhaler Albuterol Sulfate [Proventil Inhaler] 180 mcg Q6HR Carvedilol [Coreg] 12.5 mg PO BID #0 Discontinued Lactobacillus [Culturelle] 1 each PO BID 3 Days cap.sprink Cefuroxime PO [Ceftin] 500 mg PO Q12HR 3 Days tablet Home Medications: Acetaminophen [Tylenol] 650 mg PO Q4HR PRN 12/21/17 [History] Duloxetine HCl [Cymbalta] 60 mg PO QAM 12/21/17 [History] Isosorbide DInitrate [Isosorbide Dinitrate] 30 mg PO BID 12/21/17 [History] Pravastatin Sodium [Pravachol] 40 mg PO HS 12/21/17 [History] Rivaroxaban [Xarelto] 15 mg PO QAM 12/21/17 [History] raNITIdine HCl [Zantac] 150 mg PO BID PRN 12/21/17 [History] Aspirin [Lo-Dose Aspirin EC] 81 mg PO Q48H #0 12/26/17 [Rx] Bumetanide [Bumex] 0.5 mg PO Q48H tablet 12/26/17 [Rx] Budesonide/Formoterol 160/4.5 [Symbicort 160/4.5] 2 puff IH BIDR inhaler 01/23/18 [Rx] Albuterol Sulfate [Proventil Inhaler] 180 mcg Q6HR 03/23/18 [History] Carvedilol [Coreg] 12.5 mg PO BID #0 03/26/18 [Rx] Potassium Chloride 20 meq PO DAILY tab.er.prt 06/15/19 [Rx] Allergies/Adverse Reactions: Allergy/AdvReac Type Severity Reaction Status Date / Time Penicillins [PCN] Allergy Severe See Verified 06/12/19 19:46 Comments diphenhydramine Allergy See Verified 06/12/19 19:46 Comments Date of admission: 06/12/19 21:05 Primary care physician: Marissa Madden Consults: 06/12/19 22:33 Consult to Library Science Professor [CONS] Routine Reason for SW Consult: Patient has home health services. Came into to ER [facility] she was alone and did not know where her significant other/direct care staffer is. Uncertain home situation. 06/14/19 10:51 Consult to Occupational Therapy [CONS] Routine Comment: Evaluate, develop and implement POC Reason for Consult: weakness Does patient have active BEDREST order?: No Is patient medically & hemodynamically stable?: Yes Patient assessed for mobility or mobilized this visit?: Yes Consult to Physical Therapy [CONS] Routine Comment: Evaluate, develop and implement POC Reason for Consult: weakness Does patient have active BEDREST order?: No Is patient medically & hemodynamically stable?: Yes Patient assessed for mobility or mobilized this visit?: Yes - Constitutional Vitals: Temp Pulse Resp BP Pulse Ox 97.7 F 88 22 144/80 98 06/15/19 14:20 06/15/19 14:20 06/15/19 14:20 06/15/19 14:20 06/15/19 14:20 - Patient Status Disposition: Transfer SNF Condition: Fair - Discharge Instructions Forms: ED Satisfaction Letter, Work/School Release
--- NOTE | 2019-06-15 15:14 | Physician Discharge Referral ---
ExtendedCare Referral Info Transfer To: [facility] Provider in Charge: Eliezer Provider in Charge after Transfer: PCP - Diagnosis (1) Hypokalemia Priority: Primary Status: Resolved (2) Chronic atrial fibrillation Priority: Secondary Status: Chronic (3) Diabetes mellitus Priority: Secondary Status: Chronic (4) Diastolic heart failure Priority: Secondary Status: Chronic (5) Weakness Priority: Secondary Status: Acute (6) Dementia Priority: Secondary Status: Chronic Prognosis: Fair - Transfer Medications Home Medications: Acetaminophen [Tylenol] 650 mg PO Q4HR PRN 12/21/17 [History] Duloxetine HCl [Cymbalta] 60 mg PO QAM 12/21/17 [History] Isosorbide DInitrate [Isosorbide Dinitrate] 30 mg PO BID 12/21/17 [History] Pravastatin Sodium [Pravachol] 40 mg PO HS 12/21/17 [History] Rivaroxaban [Xarelto] 15 mg PO QAM 12/21/17 [History] raNITIdine HCl [Zantac] 150 mg PO BID PRN 12/21/17 [History] Aspirin [Lo-Dose Aspirin EC] 81 mg PO Q48H #0 12/26/17 [Rx] Bumetanide [Bumex] 0.5 mg PO Q48H tablet 12/26/17 [Rx] Budesonide/Formoterol 160/4.5 [Symbicort 160/4.5] 2 puff IH BIDR inhaler 01/23/18 [Rx] Albuterol Sulfate [Proventil Inhaler] 180 mcg Q6HR 03/23/18 [History] Carvedilol [Coreg] 12.5 mg PO BID #0 03/26/18 [Rx] Potassium Chloride 20 meq PO DAILY tab.er.prt 06/15/19 [Rx] Allergies/Adverse Reactions: Allergy/AdvReac Type Severity Reaction Status Date / Time Penicillins [PCN] Allergy Severe See Verified 06/12/19 19:46 Comments diphenhydramine Allergy See Verified 06/12/19 19:46 Comments - Respiratory Orders Smoking Cessation: Smoking cessation has been advised. For more information, call the [employer] Tobacco Quit Line at 6-083-UKEG-NOW. - Advance Directives Code Status: Full Code - Rehabiliation Orders Rehab Potential: Fair Rehab Orders: Evaluation for Physical Therapy, Evaluation for Occupational Therapy - Diet Orders No Concentrated Sweets CERTIFICATION: I certify that the transfer of the above named patient to an Extended Care Facility is necessary for the continuing treatment of the diagnosis listed. The above information is true and accurate reflection of patient's current condition. Confidential - Redisclosure prohibited without a patient's written consent.
[2019-06-15] MEDS ORDERED: cefTRIAXone 2,000 MG in Water for inj. (sterile) 20 ML IVPB SCH (20:00)
[2019-06-16] MEDS ORDERED: Aspirin Enteric Coated 81 MG Tablet PO SCH (09:00)
[2019-06-16] MEDS ORDERED: Bumetanide 1 MG TABLET PO SCH (09:00)
== END 2019-06-15 16:22 ==
LOC: EMEROOPIK 19:26 → INPPIK 19:26
PROVIDERS: ADMIT Internal Medicine; ATTEND Internal Medicine